=== PATIENT | female | born 1955 | race Caucasian/White ===

== ENCOUNTER 2017-08-23 08:12 | Emergency (ER) | payer OTHER ==
[~2017-08-23] VITALS: Ht 162.6 cm; Wt 113.4 kg
[~2017-08-23 08:12] MED LIST: ALBU90OI INH; AMLO10 PO; AMLO5 PO; ASPI325 PO; ASPI325EC; ASPI325EC PO; ASPI81EC PO; ATEN25; ATEN25 PO; ATEN50; ATEN50 PO; AZIT500 PO; CIPR500 PO; CLIN300 PO; CLON.1 PO; CLOP75 PO; CYCL10 PO; DOCU100 PO; DULO60; ESTMEDA PO; ESTPRO5 PO; FLUSAL5005 IH; FURO40 PO; GLIP5 PO; HYDACE10B PO; HYDACE5 PO; HYDACE5325 PO; ISOMON60ER PO; KETO10 PO; LACT10SY PO; LIDO5TP TOP; LISHYD2025 PO; LISI20; MAGCIT300 PO; MECL25 PO; METCAR500 PO; METO100 PO; METO25ER PO; METO50 PO; METO50ER PO; METPRE4DP PO; NAPR500 PO; NITR.4SL SL; OMEP20ER PO; OMEP40CA12 PO; OXYACE5T PO; OXYC10TA19 PO; PRAHYD1AE TOP; PRAV20 PO; PRED20 PO; PREMPRO PO; PROACE100 PO; PROM25 PO; RANI150 PO; ROSU10TA PO; RXHYDMOR2 PO; RXOXYACE PO; SITA100T2 PO; SITA25T2 PO; SUCR1 PO; SULTRIDS PO; TRAM50 PO; TRAZ50 PO; WALKER; [UNRECOGNIZED DRUG - OTHER]
== END 2017-08-23 09:45 | disposition home or self-care (01) ==
LOC: ER 08:12
DX: F32.9 Major depressive disorder, single episode, unspecified (principal); F43.9 Reaction to severe stress, unspecified; I10 Essential (primary) hypertension; E11.9 Type 2 diabetes mellitus without complications; F17.210 Nicotine dependence, cigarettes, uncomplicated; Z88.0 Allergy status to penicillin; Z88.2 Allergy status to sulfonamides; Z88.5 Allergy status to narcotic agent; Z88.8 Allergy status to other drugs, medicaments and biological substances; Z79.899 Other long term (current) drug therapy; Z79.82 Long term (current) use of aspirin; Z79.84 Long term (current) use of oral hypoglycemic drugs; Z86.73 Personal history of transient ischemic attack (TIA), and cerebral infarction without residual deficits
CPT/HCPCS: 99283

== ENCOUNTER 2017-12-10 08:49 | Emergency (ER) | payer OTHER ==
[~2017-12-10] VITALS: Ht 162.6 cm; Wt 108.9 kg
[2017-12-10 09:23] LABS: BASOPHILS ABSOLUTE AUTO 0.02 K/mm3 (0.00-0.23); BASOPHILS PERCENT AUTO 1 % (0-2); EOSINOPHILS PERCENT AUTO 3 % (0-6); Hematocrit 44.5 % (33.0-51.0); Hemoglobin 15.5 g/dL (11.5-16.0); IMMATURE GRAN ABSOLUTE AUTO 0.01 K/mm3 (0.00-0.10); IMMATURE GRAN PERCENT AUTO 0 % (0-1); LYMPHOCYTES ABSOLUTE AUTO 1.35 K/mm3 (0.84-5.20); LYMPHOCYTES PERCENT AUTO 37 % (21-46); MONOCYTES ABSOLUTE AUTO 0.33 K/mm3 (0.16-1.47); MONOCYTES PERCENT AUTO 9 % (4-13); Mean Corpuscular HGB 30.9 pg (26.0-34.0); Mean Corpuscular HGB Conc 34.8 g/dL (31.5-36.5); Mean Corpuscular Volume 89 fL (80-100); Mean Platelet Volume 9.1 fL (9.1-12.4); NEUTROPHILS ABSOLUTE AUTO 1.86 K/mm3 (1.96-9.15); NEUTROPHILS PERCENT AUTO 51 % (41-73); Platelet Count 212 K/mm3 (150-400); RDW Coefficient Variation 12.4 % (11.7-14.2); RDW Standard Deviation 40.4 fL (35.1-46.3); Red Blood Cell Count 5.01 M/mm3 (3.80-5.20); White Blood Cell Count 3.67 K/mm3 (4.00-11.30)
[2017-12-10 09:40] LABS: Alanine Aminotransfer (ALT/SGP 45 U/L (12-78); Albumin/Globulin Ratio 0.8 (0.8-1.8); Alk Phos 142 U/L (50-136); Anion Gap 9 mmol/L (6-16); Aspartate Aminotrans (AST/SGOT 29 U/L (12-37); Bilirubin, Total 0.5 mg/dL (0.1-1.0); Blood Urea Nitrogen 10 mg/dL (8-24); Bun/Creatinine Ratio 17.9 (12.0-20.0); CO2, Blood 28 mmol/L (21-32); Calcium, Blood 8.2 mg/dL (8.5-10.1); Chloride, Blood 102 mmol/L (98-108); Creatinine, Blood 0.56 mg/dL (0.40-1.00); Globulin, Blood 3.7 g/dL (2.2-4.0); Glomerular Filtration Rate >60 (60-); Glucose, Blood 291 mg/dL (70-99); Potassium, Blood 3.7 mmol/L (3.5-5.5); Sodium, Blood 139 mmol/L (136-145); Total Protein, Blood 6.7 g/dL (6.4-8.2)
[2017-12-10 09:56] LABS: Source, Urine Clean Catch
[2017-12-10 10:01] LABS: Bilirubin, Urine Neg (Neg); Blood, Urine Neg (Neg); Glucose Qualitative, Urine 4+ (Neg); Ketones, Urine Neg (Neg); Leukocyte Esterase, Urine Neg (Neg); Nitrite, Urine Neg (Neg); Protein, Urine Neg (Neg); Specific Gravity, Urine 1.015 (1.003-1.022); Urobilinogen, Urine NORM (Normal)
[2017-12-10] MEDS ORDERED: DULO60 PO (10:05)
[2017-12-10] MEDS ORDERED: BASAGLAR K100 UNIT/1 SC (10:07)
[2017-12-10] MEDS ORDERED: LOSARTAN-HCTZ1 EACH PO (10:08)
[2017-12-10] MEDS ORDERED: PRAV20 PO (10:09)
[2017-12-10 10:12] LABS: Appearance, Urine Clear (Clear); Color, Urine Yellow (P-Yellow)
== END 2017-12-10 12:35 | disposition home or self-care (01) ==
LOC: ER 08:49
PROVIDERS: Physician Assistant
DX: R10.31 Right lower quadrant pain (principal); M16.0 Bilateral primary osteoarthritis of hip; E11.9 Type 2 diabetes mellitus without complications; I11.0 Hypertensive heart disease with heart failure; I50.9 Heart failure, unspecified; J44.9 Chronic obstructive pulmonary disease, unspecified; F17.210 Nicotine dependence, cigarettes, uncomplicated; Z88.0 Allergy status to penicillin; Z88.2 Allergy status to sulfonamides; Z88.5 Allergy status to narcotic agent; Z88.8 Allergy status to other drugs, medicaments and biological substances; Z79.899 Other long term (current) drug therapy; Z79.82 Long term (current) use of aspirin; Z79.84 Long term (current) use of oral hypoglycemic drugs; Z86.73 Personal history of transient ischemic attack (TIA), and cerebral infarction without residual deficits
CPT/HCPCS: 71046; 74176; 80053; 81003; 83690; 83880; 85025; 93005; 93010; 96361; 96374; 99285-25; J2405; J7030

== ENCOUNTER 2019-02-22 09:40 | Emergency (ER) | payer OTHER ==
[~2019-02-22] VITALS: Ht 162.6 cm; Wt 95.2 kg
[~2019-02-22 09:40] MED LIST changes: +BASAGLAR K100 UNIT/1 SC; +DULO60 PO; +LOSARTAN-HCTZ1 EACH PO
[2019-02-22 10:21] LABS: BASOPHILS ABSOLUTE AUTO 0.02 K/mm3 (0.00-0.23); BASOPHILS PERCENT AUTO 0 % (0-2); EOSINOPHILS PERCENT AUTO 2 % (0-6); Hematocrit 48.9 % (33.0-51.0); Hemoglobin 17.1 g/dL (11.5-16.0); IMMATURE GRAN ABSOLUTE AUTO 0.02 K/mm3 (0.00-0.10); IMMATURE GRAN PERCENT AUTO 0 % (0-1); LYMPHOCYTES ABSOLUTE AUTO 1.76 K/mm3 (0.84-5.20); LYMPHOCYTES PERCENT AUTO 35 % (21-46); MONOCYTES ABSOLUTE AUTO 0.54 K/mm3 (0.16-1.47); MONOCYTES PERCENT AUTO 11 % (4-13); Mean Corpuscular HGB 31.7 pg (26.0-34.0); Mean Corpuscular Volume 91 fL (80-100); Mean Platelet Volume 9.7 fL (9.1-12.4); NEUTROPHILS ABSOLUTE AUTO 2.55 K/mm3 (1.96-9.15); NEUTROPHILS PERCENT AUTO 51 % (41-73); Platelet Count 225 K/mm3 (150-400); RDW Coefficient Variation 12.7 % (11.7-14.2); RDW Standard Deviation 41.3 fL (35.1-46.3); White Blood Cell Count 4.99 K/mm3 (4.00-11.30)
[2019-02-22 10:30] LABS: Alanine Aminotransfer (ALT/SGP 55 U/L (12-78); Albumin, Blood 3.5 g/dL (3.4-5.0); Alk Phos 132 U/L (50-136); Anion Gap 7 mmol/L (6-16); Aspartate Aminotrans (AST/SGOT 31 U/L (12-37); Bilirubin, Total 0.5 mg/dL (0.1-1.0); Blood Urea Nitrogen 10 mg/dL (8-24); Bun/Creatinine Ratio 18.1 (12.0-20.0); CO2, Blood 30 mmol/L (21-32); Calcium, Blood 8.7 mg/dL (8.5-10.1); Chloride, Blood 100 mmol/L (98-108); Creatinine, Blood 0.55 mg/dL (0.40-1.00); Globulin, Blood 3.6 g/dL (2.2-4.0); Glomerular Filtration Rate >60 (60-); Glucose, Blood 352 mg/dL (70-99); Potassium, Blood 3.7 mmol/L (3.5-5.5); Sodium, Blood 137 mmol/L (136-145); Total Protein, Blood 7.1 g/dL (6.4-8.2); Troponin I <0.015 ng/mL (0.000-0.040)
[2019-02-22] MEDS ORDERED: Ultram50 MG PO (12:05)
== END 2019-02-22 12:37 | disposition home or self-care (01) ==
LOC: ER 09:40
PROVIDERS: Emergency Medicine
DX: M25.551 Pain in right hip (principal); Z88.0 Allergy status to penicillin; Z88.2 Allergy status to sulfonamides; Z88.5 Allergy status to narcotic agent; Z79.899 Other long term (current) drug therapy; Z79.82 Long term (current) use of aspirin; Z79.4 Long term (current) use of insulin; I11.0 Hypertensive heart disease with heart failure; I50.9 Heart failure, unspecified; Z86.73 Personal history of transient ischemic attack (TIA), and cerebral infarction without residual deficits; F17.210 Nicotine dependence, cigarettes, uncomplicated; E11.9 Type 2 diabetes mellitus without complications
CPT/HCPCS: 36415; 71046; 72100; 73502; 80053; 84484; 85025; 93005; 93010; 96374; 99284-25; J3010

== ENCOUNTER 2019-05-09 00:42 | Observation (INO) | payer MEDICARE, OTHER ==
[~2019-05-09] VITALS: Ht 162.6 cm; Wt 97.3 kg
[~2019-05-09 00:42] MED LIST changes: +Ultram50 MG PO
[2019-05-09 01:24] LABS: BASOPHILS ABSOLUTE AUTO 0.04 K/mm3 (0.00-0.23); BASOPHILS PERCENT AUTO 1 % (0-2); EOSINOPHILS PERCENT AUTO 2 % (0-6); Hematocrit 50.9 % (33.0-51.0); IMMATURE GRAN ABSOLUTE AUTO 0.02 K/mm3 (0.00-0.10); IMMATURE GRAN PERCENT AUTO 0 % (0-1); LYMPHOCYTES ABSOLUTE AUTO 1.82 K/mm3 (0.84-5.20); LYMPHOCYTES PERCENT AUTO 36 % (21-46); MONOCYTES ABSOLUTE AUTO 0.53 K/mm3 (0.16-1.47); MONOCYTES PERCENT AUTO 11 % (4-13); Mean Corpuscular HGB 31.6 pg (26.0-34.0); Mean Corpuscular HGB Conc 35.4 g/dL (31.5-36.5); Mean Corpuscular Volume 89 fL (80-100); Mean Platelet Volume 10.2 fL (9.1-12.4); NEUTROPHILS ABSOLUTE AUTO 2.55 K/mm3 (1.96-9.15); NEUTROPHILS PERCENT AUTO 50 % (41-73); Platelet Count 238 K/mm3 (150-400); RDW Coefficient Variation 12.2 % (11.7-14.2); White Blood Cell Count 5.06 K/mm3 (4.00-11.30)
[2019-05-09 01:44] LABS: Acetaminophen, Random <2.0 ug/mL (10.0-30.0); Alanine Aminotransfer (ALT/SGP 62 U/L (12-78); Albumin, Blood 3.6 g/dL (3.4-5.0); Alk Phos 160 U/L (50-136); Anion Gap 11 mmol/L (6-16); Aspartate Aminotrans (AST/SGOT 35 U/L (12-37); Bilirubin, Total 0.5 mg/dL (0.1-1.0); Blood Urea Nitrogen 11 mg/dL (8-24); Bun/Creatinine Ratio 20.6 (12.0-20.0); CO2, Blood 24 mmol/L (21-32); Chloride, Blood 101 mmol/L (98-108); Creatinine, Blood 0.54 mg/dL (0.40-1.00); Ethanol (Alcohol), Blood, Med <3 mg/dL; Globulin, Blood 3.7 g/dL (2.2-4.0); Glomerular Filtration Rate >60 (60-); Glucose, Blood 474 mg/dL (70-99); Potassium, Blood 3.8 mmol/L (3.5-5.5); Salicylate 2.2 mg/dL (2.8-20.0); Sodium, Blood 136 mmol/L (136-145); Total Protein, Blood 7.3 g/dL (6.4-8.2)
[2019-05-09 03:26] LABS: Source, Urine Clean Catch
[2019-05-09 03:29] LABS: Bilirubin, Urine Neg (Neg); Blood, Urine Neg (Neg); Glucose Qualitative, Urine 4+ (Neg); Ketones, Urine 1+ (Neg); Leukocyte Esterase, Urine Neg (Neg); Nitrite, Urine Neg (Neg); Protein, Urine Neg (Neg); Specific Gravity, Urine 1.015 (1.003-1.022); Urobilinogen, Urine NORM (Normal); pH, Urine 6.5 (5.0-8.0)
[2019-05-09 03:31] LABS: Appearance, Urine Clear (Clear); Color, Urine Yellow (P-Yellow)
[2019-05-09 03:39] LABS: U Amphetamine Screen Not Detected; U Barbituate Screen Not Detected; U Benzodiazapine Screen Not Detected; U Buprenorphine Screen Not Detected; U Cannabinoids Screen Not Detected; U Cocaine Screen Not Detected; U Methadone Screen Not Detected; U Methamphetamine Screen Not Detected; U Opiates Screen Not Detected; U Oxycodone Screen Not Detected; U Phencyclidine Screen Not Detected; U Propoxyphene Screen Not Detected
--- NOTE | 2019-05-09 17:26 | NUR ---
SHIFT SUMMARY 1055 RECEIVED PT TO RM 348 VIA W/C FROM ER. PER REPORT, PT IS W/C BOUND BUT ABLE TO STAND AND PIVOT FROM CHAIR TO BED. PT ORIGINALLY ON SI PRECAUTIONS WHEN SENT TO ER. DR MORRIS IN TO SEE PT AND LATER DR PAK. SI PRECAUTIONS D/C'D. PER REPORT, PT AND HAD AN ARGUMENT LEADING TO PT BEING BROUGHT IN TO ER. PT REPORTED THAT SHE IS "TIRED OF THE PAIN". PT'S DAUGHTER CALLED TO [facility] ON HER MOM AND REPORTED THAT PT WAS SUPPOSE TO GO TO THE PAIN CLINIC, BUT REFUSED TO GO. DAUGHTER REPORTED THAT PT DOESN'T FEEL SHE IS ABLE TO TOLERATE THE TRANSPORT OFTEN THEY REQUIRE. PT'S CBG ELEVATED WHEN ADMITTED TO D/T NOT RECEIVING INSULIN COVERAGE WHILE IN ER. DR MORRIS NOTIFIED OF CBG RESULT AND INSULIN GIVEN PER EMAR. PT MEDICATED FOR C/O PAIN PER EMAR AND HAS RESTED QUIETLY THE REMAINDER OF THE DAY. PT HAS BEEN PLEASANT AND CO-OP. CALL LT IN REACH.
--- NOTE | 2019-05-09 21:32 | NUR ---
BLOOD GLUCOSE: BLOOD GLUCOSE WAS CHECKED PER PATIENT REQUEST, RESULT IS 372. LIGIA BRISCOE NP WAS NOTIFIED AND NO NEW ORDERS OBTAINED. CONTINUE TO MONITOR BLOOD GLUCOSE BEFORE MEALS ORDERED.
[2019-05-10 05:03] LABS: BASOPHILS ABSOLUTE AUTO 0.04 K/mm3 (0.00-0.23); BASOPHILS PERCENT AUTO 1 % (0-2); EOSINOPHILS ABSOLUTE AUTO 0.16 K/mm3 (0.00-0.68); EOSINOPHILS PERCENT AUTO 3 % (0-6); Hematocrit 47.1 % (33.0-51.0); IMMATURE GRAN ABSOLUTE AUTO 0.02 K/mm3 (0.00-0.10); IMMATURE GRAN PERCENT AUTO 0 % (0-1); LYMPHOCYTES ABSOLUTE AUTO 2.13 K/mm3 (0.84-5.20); LYMPHOCYTES PERCENT AUTO 44 % (21-46); MONOCYTES ABSOLUTE AUTO 0.69 K/mm3 (0.16-1.47); MONOCYTES PERCENT AUTO 14 % (4-13); Mean Corpuscular HGB 31.1 pg (26.0-34.0); Mean Platelet Volume 10.2 fL (9.1-12.4); NEUTROPHILS ABSOLUTE AUTO 1.84 K/mm3 (1.96-9.15); NEUTROPHILS PERCENT AUTO 38 % (41-73); Platelet Count 216 K/mm3 (150-400); RDW Coefficient Variation 12.5 % (11.7-14.2); RDW Standard Deviation 41.8 fL (35.1-46.3); Red Blood Cell Count 5.15 M/mm3 (3.80-5.20); White Blood Cell Count 4.88 K/mm3 (4.00-11.30)
[2019-05-10 05:08] LABS: Mean Corpuscular Volume 92 fL (80-100)
[2019-05-10 05:27] LABS: Bilirubin, Total 0.7 mg/dL (0.1-1.0); Bun/Creatinine Ratio 13.7 (12.0-20.0); Calcium, Blood 8.7 mg/dL (8.5-10.1); Creatinine, Blood 1.53 mg/dL (0.40-1.00); Globulin, Blood 3.1 g/dL (2.2-4.0); Potassium, Blood 4.5 mmol/L (3.5-5.5); Total Protein, Blood 6.1 g/dL (6.4-8.2)
--- NOTE | 2019-05-10 06:30 | NUR ---
SHIFT SUMMARY: PATIENT IS A&OX4, VS ARE STABLE, UP TO THE BSC WITH ASSIST OF ONE TO VOID. CONTINUES TO REPORT PAIN IN RIGHT HIP 7-12/10. SCHEDULED TORADOL AND NORCO WERE NOT COVERING PAIN, LIGIA BRISCOE NP WAS NOTIFIED AND AN ORDER TP CHANGE NORCO TO 1 TAB Q 4 HOUR SCHEDULED WAS OBTAINED.
--- NOTE | 2019-05-10 16:41 | NUR ---
PT IS A/OX3, PLEASANT AND COOPERATIVE, THE PT IS A STAND PIVOT TO THE CHAIR, THE PT HAS BEEN UP INTO THE CHAIR FOR MEALS SO FAR TODAY, THE PT APPEARS TO BE BREATHING EASILY ON RA, THE WAS MEDICATED FOR CHRONIC BACK AND HIP PAIN SCHEDULED, THE PTS BP HAS BEEN UNDER 100 MM HG T/THE DAY IN THE 90'S, DR. MORRIS IS AWARE BP MEDS WERE HELD TODAY SO FAR, WILL CONTINUE TO MONITOR AND ASSESS FOR CHANGES, THE PT WAS GIVEN ATIVAN X1 IN PREP FOR MRI, CALL LIGHT IN REACH
--- NOTE | 2019-05-11 06:35 | NUR ---
NO ACUTE CHANGES THIS SHIFT.
--- NOTE | 2019-05-11 16:40 | NUR ---
pt transfered to room 342 REPORT GIVEN TO WINDY LINARES, PT WAS TRANSFERED TO ROOM VIA WHEELCHAIR, TODAY THE PT HAS BEEN A/OX3. PLEASANT AND COOPERATIVE, THE PT IS PU WITH SBA TO THE CHAIR AND THE BSC, THE PT WAS MEDICATED FOR BACK AND RIGHT HIP PAIN T/O THE DAY, PT WAS UP INTO THE CHAIR FOR MEALS. CALL LIGHT IN REACH, WILL CONTINUE TO MONITOR AND ASSESS FOR CHANGES
--- NOTE | 2019-05-11 22:30 | NUR ---
AMA DISCHARGE AT THE START OF SHIFT, PT WAS VERY AGITATED. SHE STATED THAT SHE "WANTED TO GO BACK TO MY OLD ROOM", THAT THE HOSPITAL WAS TOO NOISY, THAT THE STAFF WAS KEEPING SECRETS AND THAT "SOMEONE WAS TALKING ON THE PHONE ABOUT ME IN THE HALLWAY," AND THAT SHE HAD NOT BEEN TREATED FOR PER PAIN. PT WAS AGAIN EDUCATED ABOUT CHANGE OF SHIFT, AND WAS MEDICATED FOR HER PAIN WITH PRN 1 MG IV DILAUDID AT 193. PT DID STATE PAIN WAS SOMEWHAT RELIEVED, AND THIS RN HELPED HER TO USE THE PHONE TO CALL HER CAREGIVER. AND AFTER PT RECEIVED HER HS MEDICATIONS AT APPROXIMATELY 2024, SHE APPEARED CALM, DENIED ANY NEEDS AND STATED THAT SHE WAS GOING TO TRY AND SLEEP. APPROXIMATELY 20 MINUTES LATER, THIS RN WAS CALLED BY THE PT'S CAREGIVER WELL THE MAINTENANCE SCHEDULER. THE PT'S CAREGIVER STATED THAT THE PT HAD CALLED HER REPEATEDLY, SAYING THAT THE "STAFF WAS KEEPING SECRETS ABOUT HER", THAT PEOPLE WERE TALKING ABOUT HER IN THE HALLWAY, AND THAT IF SHE WAS NOT GOING TO BE TREATED THAT SHE WANTED TO GO HOME. THE MAINTENANCE SCHEDULER REPORTED THAT THE PT HAD TRIED TO CALL 911 WANTING A TRAINING MANAGER TO TAKE HER HOME. THIS RN WENT IN TO SPEAK WITH THE PT, WHO INSISTED THAT SHE WAS GOING TO LEAVE, AND THAT THE HOSPITAL COULD NOT HOLD HER AGAINST HER WILL SINCE HER SI HOSPITAL HOLD WAS DROPPED. PT WAS EDUCATED ABOUT HER CONDITION AND COUNSELED AGAINST LEAVING AMA, BUT THE PT WAS INSISTENT. THE CHARGE NURSE, NURSING LOOPER OPERATOR AND HOSPITALIST KEENAN LUTHER WERE ALL INFORMED. PT SIGNED THE [place] PAPERWORK. IV WAS DC/D. PT'S CAREGIVER CAME TO PICK THE PT UP FROM THE HOSPITAL. PT LEFT AMA AT 2216.
== END 2019-05-11 22:17 | disposition left against medical advice (07) ==
LOC: ER 00:42 → MEDS 00:43 → EOR 00:43 → MEDS 10:37
PROVIDERS: Internal Medicine; ADMIT Emergency Medicine
DX: F32.9 Major depressive disorder, single episode, unspecified (principal); E11.59 Type 2 diabetes mellitus with other circulatory complications; I11.0 Hypertensive heart disease with heart failure; I50.32 Chronic diastolic (congestive) heart failure; I25.10 Atherosclerotic heart disease of native coronary artery without angina pectoris; J44.9 Chronic obstructive pulmonary disease, unspecified; F17.210 Nicotine dependence, cigarettes, uncomplicated; M19.90 Unspecified osteoarthritis, unspecified site; G89.29 Other chronic pain; N17.9 Acute kidney failure, unspecified; M16.0 Bilateral primary osteoarthritis of hip; M47.26 Other spondylosis with radiculopathy, lumbar region; E66.01 Morbid (severe) obesity due to excess calories; Z68.41 Body mass index [BMI] 40.0-44.9, adult; Z88.0 Allergy status to penicillin; Z88.2 Allergy status to sulfonamides; Z88.5 Allergy status to narcotic agent; Z88.8 Allergy status to other drugs, medicaments and biological substances; Z79.82 Long term (current) use of aspirin; Z79.51 Long term (current) use of inhaled steroids; Z79.4 Long term (current) use of insulin; Z79.899 Other long term (current) drug therapy; Z95.5 Presence of coronary angioplasty implant and graft; Z86.73 Personal history of transient ischemic attack (TIA), and cerebral infarction without residual deficits
CPT/HCPCS: 36415; 72100; 72148; 73522; 80053; 81003; 81025; 82947; 85025; 94640; 94760; 96372; 96374; 96375; 96376; 99285; A9270-GY; G0378; G0480; J1170; J1650; J1885; J2060

== ENCOUNTER 2020-04-22 21:52 | Observation (INO) | payer MEDICARE, OTHER ==
[~2020-04-22] VITALS: Ht 162.6 cm; Wt 106.6 kg
[2020-04-22] MEDS ORDERED: LYRICA150 M1 PO (22:11)
[2020-04-22 22:22] LABS: BASOPHILS ABSOLUTE AUTO 0.03 K/mm3 (0.00-0.23); BASOPHILS PERCENT AUTO 1 % (0-2); EOSINOPHILS ABSOLUTE AUTO 0.11 K/mm3 (0.00-0.68); EOSINOPHILS PERCENT AUTO 2 % (0-6); Hematocrit 50.7 % (33.0-51.0); Hemoglobin 17.1 g/dL (11.5-16.0); IMMATURE GRAN ABSOLUTE AUTO 0.02 K/mm3 (0.00-0.10); IMMATURE GRAN PERCENT AUTO 0 % (0-1); LYMPHOCYTES PERCENT AUTO 28 % (21-46); MONOCYTES ABSOLUTE AUTO 0.52 K/mm3 (0.16-1.47); MONOCYTES PERCENT AUTO 8 % (4-13); Mean Corpuscular HGB 29.9 pg (26.0-34.0); Mean Corpuscular HGB Conc 33.7 g/dL (31.5-36.5); Mean Corpuscular Volume 89 fL (80-100); Mean Platelet Volume 9.5 fL (9.1-12.4); NEUTROPHILS ABSOLUTE AUTO 3.92 K/mm3 (1.96-9.15); NEUTROPHILS PERCENT AUTO 61 % (41-73); Platelet Count 302 K/mm3 (150-400); RDW Coefficient Variation 12.8 % (11.7-14.2); RDW Standard Deviation 41.7 fL (35.1-46.3); Red Blood Cell Count 5.71 M/mm3 (3.80-5.20)
[2020-04-22 22:43] LABS: Ethanol (Alcohol), Blood, Med <3 mg/dL; Salicylate <1.7 mg/dL (2.8-20.0); Thyroxine (T4) 10.5 ug/dL (4.8-13.9)
[2020-04-22 22:44] LABS: Alanine Aminotransfer (ALT/SGP 25 U/L (12-78); Albumin/Globulin Ratio 0.6 (0.8-1.8); Alk Phos 123 U/L (50-136); Anion Gap 7 mmol/L (6-16); Aspartate Aminotrans (AST/SGOT 12 U/L (12-37); Bilirubin, Total 0.5 mg/dL (0.1-1.0); Blood Urea Nitrogen 13 mg/dL (8-24); Bun/Creatinine Ratio 24.7 (12.0-20.0); CO2, Blood 29 mmol/L (21-32); Calcium, Blood 8.8 mg/dL (8.5-10.1); Chloride, Blood 100 mmol/L (98-108); Creatinine, Blood 0.53 mg/dL (0.40-1.00); Globulin, Blood 4.7 g/dL (2.2-4.0); Glomerular Filtration Rate >60 (60-); Glucose, Blood 459 mg/dL (70-99); Potassium, Blood 3.3 mmol/L (3.5-5.5); Sodium, Blood 136 mmol/L (136-145); Total Protein, Blood 7.7 g/dL (6.4-8.2)
[2020-04-22 22:58] LABS: Acetaminophen, Random <2.0 ug/mL (10.0-30.0)
[2020-04-23 01:20] LABS: Source, Urine Clean Catch
[2020-04-23 01:26] LABS: Appearance, Urine Cloudy (Clear); Bilirubin, Urine Neg (Neg); Blood, Urine Neg (Neg); Color, Urine Yellow (P-Yellow); Glucose Qualitative, Urine 4+ (Neg); Ketones, Urine Neg (Neg); Leukocyte Esterase, Urine 1+ (Neg); Nitrite, Urine Neg (Neg); Protein, Urine Neg (Neg); Urobilinogen, Urine NORM (Normal)
[2020-04-23 01:43] LABS: Bacteria Many /hpf; Red Blood Cells, Urine 0-2 /hpf (0-2); Squamous Epithelial Cells Many /hpf (Few)
[2020-04-23 01:50] LABS: U Amphetamine Screen DETECTED; U Barbituate Screen Not Detected; U Benzodiazapine Screen Not Detected; U Buprenorphine Screen Not Detected; U Cannabinoids Screen Not Detected; U Cocaine Screen Not Detected; U Methadone Screen Not Detected; U Methamphetamine Screen DETECTED; U Opiates Screen Not Detected; U Oxycodone Screen Not Detected; U Phencyclidine Screen Not Detected; U Propoxyphene Screen Not Detected
[2020-04-23 11:51] LABS: Influenza A, PCR Negative (NEGATIVE); Influenza B, PCR Negative (NEGATIVE); Resp Syncytial Virus, PCR Negative (NEGATIVE); SARS-Cov-2 (COVID-19) PCR, MMC Negative (NEGATIVE)
== END 2020-04-23 17:13 | disposition home or self-care (01) ==
LOC: ER 21:52 → EOR 04-23 00:19
PROVIDERS: Emergency Medicine; ADMIT Emergency Medicine
DX: F33.9 Major depressive disorder, recurrent, unspecified (principal); T42.6X2A Poisoning by other antiepileptic and sedative-hypnotic drugs, intentional self-harm, initial encounter; F15.10 Other stimulant abuse, uncomplicated; F17.210 Nicotine dependence, cigarettes, uncomplicated; I11.0 Hypertensive heart disease with heart failure; I50.9 Heart failure, unspecified; J44.9 Chronic obstructive pulmonary disease, unspecified; I25.10 Atherosclerotic heart disease of native coronary artery without angina pectoris; E11.40 Type 2 diabetes mellitus with diabetic neuropathy, unspecified; E66.9 Obesity, unspecified; Z67.41 Type O blood, Rh negative; Z95.5 Presence of coronary angioplasty implant and graft; Z86.73 Personal history of transient ischemic attack (TIA), and cerebral infarction without residual deficits; Z79.82 Long term (current) use of aspirin; Z79.51 Long term (current) use of inhaled steroids; Z79.4 Long term (current) use of insulin; Z79.899 Other long term (current) drug therapy; Z20.828 Contact with and (suspected) exposure to other viral communicable diseases; Z88.0 Allergy status to penicillin; Z88.2 Allergy status to sulfonamides; Z88.5 Allergy status to narcotic agent; Z88.8 Allergy status to other drugs, medicaments and biological substances; Z99.3 Dependence on wheelchair
CPT/HCPCS: 0241U; 51701; 80053; 81001; 82947; 84436; 84443; 85025; 87086; 93005; 93010; 96374; 99285-25; G0378; G0480; J1815; J1885; J7030; Q3014

== ENCOUNTER 2020-12-17 12:08 | Observation (INO) | payer MEDICARE, OTHER ==
[~2020-12-17] VITALS: Ht 162.6 cm; Wt 108.9 kg
[~2020-12-17 12:08] MED LIST changes: +Aspir 8181 MG PO; +LYRICA150 M1 PO
[2020-12-17] MEDS ORDERED: CYMBALTA30 M2 PO (12:47)
[2020-12-17] MEDS ORDERED: REMERON15 M4 PO (12:47)
[2020-12-17] MEDS ORDERED: HYDROCHLOROTH12.5 MG PO (12:47)
[2020-12-17] MEDS ORDERED: DULOXETINE HCL60 M1 PO (12:47)
[2020-12-17] MEDS ORDERED: FAMO20 PO (12:48)
[2020-12-17] MEDS ORDERED: LOSA50 PO (12:48)
[2020-12-17] MEDS ORDERED: PREGABALIN100 MG PO (12:48)
[2020-12-17] MEDS ORDERED: METOPROLOL TAR100 M4 PO (12:49)
[2020-12-17] MEDS ORDERED: NITR.4SL SL (12:50)
[2020-12-17 12:51] LABS: BASOPHILS ABSOLUTE AUTO 0.02 K/mm3 (0.00-0.23); BASOPHILS PERCENT AUTO 1 % (0-2); EOSINOPHILS ABSOLUTE AUTO 0.04 K/mm3 (0.00-0.68); EOSINOPHILS PERCENT AUTO 1 % (0-6); Hematocrit 44.1 % (33.0-51.0); Hemoglobin 15.4 g/dL (11.5-16.0); IMMATURE GRAN ABSOLUTE AUTO 0.02 K/mm3 (0.00-0.10); IMMATURE GRAN PERCENT AUTO 1 % (0-1); LYMPHOCYTES ABSOLUTE AUTO 1.25 K/mm3 (0.84-5.20); LYMPHOCYTES PERCENT AUTO 32 % (21-46); MONOCYTES ABSOLUTE AUTO 0.34 K/mm3 (0.16-1.47); MONOCYTES PERCENT AUTO 9 % (4-13); Mean Corpuscular HGB 30.9 pg (26.0-34.0); Mean Corpuscular HGB Conc 34.9 g/dL (31.5-36.5); Mean Corpuscular Volume 88 fL (80-100); Mean Platelet Volume 9.8 fL (9.1-12.4); NEUTROPHILS PERCENT AUTO 57 % (41-73); Platelet Count 129 K/mm3 (150-400); RDW Coefficient Variation 12.9 % (11.7-14.2); RDW Standard Deviation 41.9 fL (35.1-46.3); Red Blood Cell Count 4.99 M/mm3 (3.80-5.20); White Blood Cell Count 3.87 K/mm3 (4.00-11.30)
[2020-12-17 13:07] LABS: Alanine Aminotransfer (ALT/SGP 38 U/L (12-78); Albumin, Blood 2.7 g/dL (3.4-5.0); Albumin/Globulin Ratio 0.7 (0.8-1.8); Alk Phos 84 U/L (50-136); Anion Gap 7 mmol/L (6-16); Aspartate Aminotrans (AST/SGOT 21 U/L (12-37); Bilirubin, Total 0.8 mg/dL (0.1-1.0); Blood Urea Nitrogen 7 mg/dL (8-24); Bun/Creatinine Ratio 13.9 (12.0-20.0); CO2, Blood 27 mmol/L (21-32); Calcium, Blood 7.8 mg/dL (8.5-10.1); Chloride, Blood 104 mmol/L (98-108); Globulin, Blood 3.7 g/dL (2.2-4.0); Glomerular Filtration Rate >60 (60-); Glucose, Blood 337 mg/dL (70-99); Potassium, Blood 3.3 mmol/L (3.5-5.5); Sodium, Blood 138 mmol/L (136-145); Total Protein, Blood 6.4 g/dL (6.4-8.2); Troponin I <0.015 ng/mL (0.000-0.040)
--- NOTE | 2020-12-17 22:40 | NUR ---
RECEIVED REPORT FROM VIJAY HERNANDEZ. PT DROWSY, BUT AROUSABLE TO VERBAL/TACTILE STIMULI. MEDS GIVEN AND CBG OBTAINED. PT/OT ASSISTING PT TO GET CLEANED UP. NO OTHER ACUTE NEEDS ASSESSED AT THIS TIME. CALL LIGHT, POSSESSIONS IN REACH, BED IN LOW AND LOCKED POSITION WITH ALARMS ON.
[2020-12-18 05:53] LABS: Anion Gap 9 mmol/L (6-16); Blood Urea Nitrogen 13 mg/dL (8-24); Bun/Creatinine Ratio 23.8 (12.0-20.0); CO2, Blood 24 mmol/L (21-32); Calcium, Blood 7.9 mg/dL (8.5-10.1); Chloride, Blood 104 mmol/L (98-108); Creatinine, Blood 0.55 mg/dL (0.40-1.00); Glomerular Filtration Rate >60 (60-); Glucose, Blood 344 mg/dL (70-99); Potassium, Blood 4.3 mmol/L (3.5-5.5); Sodium, Blood 137 mmol/L (136-145)
--- NOTE | 2020-12-18 07:38 | NUR ---
HIGH DENSITY FINISHING OPERATOR SUMMARY PT ASLEEP, IN NAD. NO ACUTE CHANGES TO REPORT OVERNIGHT, APPEARED TO SLEEP WELL. VS REVIEWED,WNL. O2 SATS STABLE ON RA. NO ACUTE NEEDS ASSESSED AT THIS TIME. CALL LIGHT, POSSESSIONS IN REACH, BED IN LOW AND LOCKED POSITION WITH ALARMS ON. REPORT GIVEN TO VIJAY RANGEL.
--- NOTE | 2020-12-18 17:14 | NUR ---
NO ACUTE CHANGES TO PT. SHE HAS BEEN ALERT AND ORIENTED ALL DAY. PT REMAINS ON ROOM AIR, NO COMPLAINTS OF SOB, NVD, OR PAIN. PT ABLE TO TRANSFER TO BSC ON HER OWN. CALLS APPROPRIATELY . VITALS WNL, CALL LIGHT WITHIN REACH, BED IN LOW POSITION. WILL CONTINUE TO MONITOR.
[2020-12-19 05:24] LABS: BASOPHILS PERCENT AUTO 0 % (0-2); EOSINOPHILS PERCENT AUTO 0 % (0-6); Hematocrit 42.3 % (33.0-51.0); Hemoglobin 14.9 g/dL (11.5-16.0); IMMATURE GRAN ABSOLUTE AUTO 0.02 K/mm3 (0.00-0.10); IMMATURE GRAN PERCENT AUTO 0 % (0-1); LYMPHOCYTES ABSOLUTE AUTO 1.23 K/mm3 (0.84-5.20); LYMPHOCYTES PERCENT AUTO 25 % (21-46); MONOCYTES PERCENT AUTO 6 % (4-13); Mean Corpuscular HGB 30.5 pg (26.0-34.0); Mean Corpuscular HGB Conc 35.2 g/dL (31.5-36.5); Mean Corpuscular Volume 87 fL (80-100); Mean Platelet Volume 9.9 fL (9.1-12.4); NEUTROPHILS ABSOLUTE AUTO 3.37 K/mm3 (1.96-9.15); NEUTROPHILS PERCENT AUTO 69 % (41-73); Platelet Count 196 K/mm3 (150-400); RDW Coefficient Variation 12.5 % (11.7-14.2); RDW Standard Deviation 39.6 fL (35.1-46.3); Red Blood Cell Count 4.88 M/mm3 (3.80-5.20); White Blood Cell Count 4.92 K/mm3 (4.00-11.30)
[2020-12-19 05:52] LABS: Alanine Aminotransfer (ALT/SGP 35 U/L (12-78); Albumin, Blood 2.6 g/dL (3.4-5.0); Albumin/Globulin Ratio 0.7 (0.8-1.8); Alk Phos 92 U/L (50-136); Anion Gap 4 mmol/L (6-16); Aspartate Aminotrans (AST/SGOT 16 U/L (12-37); Bilirubin, Total 0.5 mg/dL (0.1-1.0); Blood Urea Nitrogen 21 mg/dL (8-24); Bun/Creatinine Ratio 41.6 (12.0-20.0); CO2, Blood 29 mmol/L (21-32); Calcium, Blood 8.1 mg/dL (8.5-10.1); Chloride, Blood 102 mmol/L (98-108); Creatinine, Blood 0.51 mg/dL (0.40-1.00); Globulin, Blood 3.9 g/dL (2.2-4.0); Glomerular Filtration Rate >60 (60-); Glucose, Blood 319 mg/dL (70-99); Potassium, Blood 3.9 mmol/L (3.5-5.5); Sodium, Blood 135 mmol/L (136-145); Total Protein, Blood 6.5 g/dL (6.4-8.2)
[2020-12-19] MEDS ORDERED: PANT20 PO (09:38)
[2020-12-19] MEDS ORDERED: ONDA4ODT MM (09:40)
--- NOTE | 2020-12-19 12:00 | NUR ---
CALLED DR FOR HIGH CBG; INSTRUCTED TO GIVE THE SLIDING SCALE AND SCHEDULED DOSE.
--- NOTE | 2020-12-19 15:48 | NUR ---
PT DC WITH HOME HEALTH; PROVIDED WITH WHEELCHAIR; INSTRUCTED THAT CAREGIVER WILL INTERNATIONAL RECRUITER HER MEDS AND WAITING FOR HER TO GO HOME; TRANSPORTED VIA [facility] [employer] GIVEN DISCHARGE PAPERWORKS, AND EDUCATED ABOUT FOLLOW UP TO PCP WHEN SYMPTOMS GETS WORSE. IV DC'D. MEDICATED FOR PAIN THIS AM AND FELT BETTER
== END 2020-12-19 15:27 | disposition home health service (06) ==
LOC: ER 12:08 → MEDS 12:09 → EOR 12:09 → MEDS 19:34
PROVIDERS: Internal Medicine; Student in an Organized Health Care Education/Training Program; ADMIT Internal Medicine
DX: U07.1 COVID-19 (principal); J96.01 Acute respiratory failure with hypoxia; I11.0 Hypertensive heart disease with heart failure; J44.9 Chronic obstructive pulmonary disease, unspecified; F17.210 Nicotine dependence, cigarettes, uncomplicated; E11.59 Type 2 diabetes mellitus with other circulatory complications; R00.0 Tachycardia, unspecified; E86.0 Dehydration; I50.30 Unspecified diastolic (congestive) heart failure; I25.10 Atherosclerotic heart disease of native coronary artery without angina pectoris; M25.559 Pain in unspecified hip; M54.9 Dorsalgia, unspecified; G89.29 Other chronic pain; E87.6 Hypokalemia; E66.01 Morbid (severe) obesity due to excess calories; Z68.41 Body mass index [BMI] 40.0-44.9, adult; J41.0 Simple chronic bronchitis; Z99.3 Dependence on wheelchair; Z86.73 Personal history of transient ischemic attack (TIA), and cerebral infarction without residual deficits; Z95.818 Presence of other cardiac implants and grafts; Z88.0 Allergy status to penicillin; Z88.2 Allergy status to sulfonamides; Z88.5 Allergy status to narcotic agent; Z88.8 Allergy status to other drugs, medicaments and biological substances; Z79.4 Long term (current) use of insulin
CPT/HCPCS: 36415; 71045; 80048; 80053; 82947; 83735; 84484; 85025; 93005; 93010; 94640; 94760; 96365; 96366; 96372; 96375; 97110; 97161; 97166; 97530; 97535; 99285-25; A9270; C9113; G0378; J1100; J1650; J1885; J2765; J3475; J7030

== ENCOUNTER → 2021-01-10 | Outpatient (CLI) | payer MEDICARE, OTHER ==
[~2021-01-10] MED LIST changes: +CYMBALTA30 M2 PO; +DULOXETINE HCL60 M1 PO; +FAMO20 PO; +HYDROCHLOROTH12.5 MG PO; +LOSA50 PO; +METOPROLOL TAR100 M4 PO; +ONDA4ODT MM; +PANT20 PO; +PREGABALIN100 MG PO; +REMERON15 M4 PO
== END | disposition home or self-care (01) ==
LOC: LAB 12:05 → LAB SHORT 12:05
DX: U07.1 COVID-19 (principal); E11.59 Type 2 diabetes mellitus with other circulatory complications
CPT/HCPCS: 87070; 87075; 87077; 87186; 87205

== ENCOUNTER 2021-02-06 10:53 | Emergency (ER) | payer OTHER, MEDICARE ==
[~2021-02-06] VITALS: Ht 162.6 cm; Wt 106.6 kg
[2021-02-06 11:34] LABS: BASOPHILS ABSOLUTE AUTO 0.02 K/mm3 (0.00-0.23); BASOPHILS PERCENT AUTO 1 % (0-2); EOSINOPHILS ABSOLUTE AUTO 0.18 K/mm3 (0.00-0.68); EOSINOPHILS PERCENT AUTO 5 % (0-6); Hematocrit 39.8 % (33.0-51.0); Hemoglobin 13.9 g/dL (11.5-16.0); IMMATURE GRAN ABSOLUTE AUTO 0.02 K/mm3 (0.00-0.10); IMMATURE GRAN PERCENT AUTO 1 % (0-1); LYMPHOCYTES ABSOLUTE AUTO 1.24 K/mm3 (0.84-5.20); LYMPHOCYTES PERCENT AUTO 32 % (21-46); MONOCYTES ABSOLUTE AUTO 0.48 K/mm3 (0.16-1.47); MONOCYTES PERCENT AUTO 12 % (4-13); Mean Corpuscular HGB Conc 34.9 g/dL (31.5-36.5); Mean Corpuscular Volume 89 fL (80-100); Mean Platelet Volume 10.2 fL (9.1-12.4); NEUTROPHILS ABSOLUTE AUTO 1.92 K/mm3 (1.96-9.15); NEUTROPHILS PERCENT AUTO 50 % (41-73); Platelet Count 241 K/mm3 (150-400); RDW Standard Deviation 42.5 fL (35.1-46.3); Red Blood Cell Count 4.48 M/mm3 (3.80-5.20); White Blood Cell Count 3.86 K/mm3 (4.00-11.30)
[2021-02-06 11:50] LABS: Alanine Aminotransfer (ALT/SGP 20 U/L (12-78); Albumin, Blood 2.3 g/dL (3.4-5.0); Albumin/Globulin Ratio 0.6 (0.8-1.8); Alk Phos 91 U/L (50-136); Anion Gap 5 mmol/L (6-16); Aspartate Aminotrans (AST/SGOT 17 U/L (12-37); Bilirubin, Total 0.5 mg/dL (0.1-1.0); Blood Urea Nitrogen 5 mg/dL (8-24); Bun/Creatinine Ratio 8.8 (12.0-20.0); CO2, Blood 32 mmol/L (21-32); Calcium, Blood 8.5 mg/dL (8.5-10.1); Chloride, Blood 101 mmol/L (98-108); Creatinine, Blood 0.57 mg/dL (0.40-1.00); Ethanol (Alcohol), Blood, Med <3 mg/dL; Globulin, Blood 3.9 g/dL (2.2-4.0); Glomerular Filtration Rate >60 (60-); Glucose, Blood 352 mg/dL (70-99); Potassium, Blood 3.1 mmol/L (3.5-5.5); Sodium, Blood 138 mmol/L (136-145); Total Protein, Blood 6.2 g/dL (6.4-8.2)
== END 2021-02-06 17:24 | disposition home or self-care (01) ==
LOC: ER 10:53
PROVIDERS: Physician Assistant
DX: M25.551 Pain in right hip (principal); M25.552 Pain in left hip; I11.0 Hypertensive heart disease with heart failure; I50.9 Heart failure, unspecified; E11.9 Type 2 diabetes mellitus without complications; J44.9 Chronic obstructive pulmonary disease, unspecified; Z86.73 Personal history of transient ischemic attack (TIA), and cerebral infarction without residual deficits; F17.210 Nicotine dependence, cigarettes, uncomplicated; Z88.0 Allergy status to penicillin; Z88.2 Allergy status to sulfonamides; Z88.5 Allergy status to narcotic agent; Z88.8 Allergy status to other drugs, medicaments and biological substances; Z79.899 Other long term (current) drug therapy; Z79.82 Long term (current) use of aspirin; Z79.4 Long term (current) use of insulin; W01.0XXA Fall on same level from slipping, tripping and stumbling without subsequent striking against object, initial encounter; Y93.E1 Activity, personal bathing and showering
CPT/HCPCS: 73522; 80053; 85025; 96374; 96375; 99284-25; A9270; G0480; J1170; J1885

== ENCOUNTER 2021-02-12 11:08 | Emergency (ER) | payer MEDICARE, OTHER ==
[~2021-02-12] VITALS: Ht 162.6 cm; Wt 106.6 kg
[~2021-02-12 11:08] MED LIST changes: -Aspir 8181 MG PO; -BASAGLAR K100 UNIT/1 SC; -CYMBALTA30 M2 PO; -FAMO20 PO; -HYDROCHLOROTH12.5 MG PO; -LOSA50 PO; -METOPROLOL TAR100 M4 PO; -PREGABALIN100 MG PO; -REMERON15 M4 PO
[2021-02-12 11:49] LABS: BASOPHILS ABSOLUTE AUTO 0.03 K/mm3 (0.00-0.23); BASOPHILS PERCENT AUTO 1 % (0-2); EOSINOPHILS ABSOLUTE AUTO 0.18 K/mm3 (0.00-0.68); EOSINOPHILS PERCENT AUTO 3 % (0-6); Hematocrit 42.5 % (33.0-51.0); Hemoglobin 14.9 g/dL (11.5-16.0); IMMATURE GRAN ABSOLUTE AUTO 0.02 K/mm3 (0.00-0.10); IMMATURE GRAN PERCENT AUTO 0 % (0-1); LYMPHOCYTES ABSOLUTE AUTO 1.49 K/mm3 (0.84-5.20); LYMPHOCYTES PERCENT AUTO 23 % (21-46); MONOCYTES ABSOLUTE AUTO 0.52 K/mm3 (0.16-1.47); MONOCYTES PERCENT AUTO 8 % (4-13); Mean Corpuscular HGB 30.5 pg (26.0-34.0); Mean Corpuscular HGB Conc 35.1 g/dL (31.5-36.5); Mean Corpuscular Volume 87 fL (80-100); Mean Platelet Volume 9.8 fL (9.1-12.4); NEUTROPHILS ABSOLUTE AUTO 4.28 K/mm3 (1.96-9.15); NEUTROPHILS PERCENT AUTO 66 % (41-73); Platelet Count 236 K/mm3 (150-400); RDW Coefficient Variation 13.2 % (11.7-14.2); RDW Standard Deviation 41.1 fL (35.1-46.3); Red Blood Cell Count 4.89 M/mm3 (3.80-5.20); White Blood Cell Count 6.52 K/mm3 (4.00-11.30)
[2021-02-12 11:59] LABS: Alanine Aminotransfer (ALT/SGP 22 U/L (12-78); Albumin, Blood 2.7 g/dL (3.4-5.0); Albumin/Globulin Ratio 0.7 (0.8-1.8); Alk Phos 104 U/L (50-136); Anion Gap 6 mmol/L (6-16); Aspartate Aminotrans (AST/SGOT 15 U/L (12-37); Bilirubin, Total 0.5 mg/dL (0.1-1.0); Blood Urea Nitrogen 6 mg/dL (8-24); Bun/Creatinine Ratio 12.2 (12.0-20.0); CO2, Blood 30 mmol/L (21-32); Calcium, Blood 8.5 mg/dL (8.5-10.1); Chloride, Blood 102 mmol/L (98-108); Creatinine, Blood 0.49 mg/dL (0.40-1.00); Globulin, Blood 3.9 g/dL (2.2-4.0); Glomerular Filtration Rate >60 (60-); Glucose, Blood 325 mg/dL (70-99); Potassium, Blood 3.5 mmol/L (3.5-5.5); Sodium, Blood 138 mmol/L (136-145); Total Protein, Blood 6.6 g/dL (6.4-8.2); Troponin I <0.015 ng/mL (0.000-0.040)
[2021-02-12] MEDS ORDERED: CLIN300 PO (13:30)
[2021-02-12] MEDS ORDERED: TRAM50 PO (13:30)
[2021-02-13] MEDS ORDERED: Percocet 5-3251 EACH PO (11:48)
[2021-02-13] MEDS ORDERED: CYMBALTA30 M2 PO (12:34)
[2021-02-13] MEDS ORDERED: PRAV20 PO (12:34)
[2021-02-13] MEDS ORDERED: LOSA50 PO (12:36)
[2021-02-13] MEDS ORDERED: BASAGLAR K100 UNIT/3 SC (12:36)
[2021-02-13] MEDS ORDERED: ASPI325 PO (13:17)
[2021-02-13] MEDS ORDERED: REMERON15 M4 PO (13:17)
[2021-02-13] MEDS ORDERED: HYDROCHLOROTH12.5 MG PO (13:17)
[2021-02-13] MEDS ORDERED: FAMO10 PO (13:18)
[2021-02-13] MEDS ORDERED: PREGABALIN100 MG PO (13:18)
[2021-02-13] MEDS ORDERED: METOPROLOL TAR100 M4 PO (13:19)
== END 2021-02-12 15:27 | disposition home or self-care (01) ==
LOC: ER 11:08
PROVIDERS: Emergency Medicine
DX: N61.0 Mastitis without abscess (principal); E11.65 Type 2 diabetes mellitus with hyperglycemia; I11.0 Hypertensive heart disease with heart failure; I50.9 Heart failure, unspecified; J44.9 Chronic obstructive pulmonary disease, unspecified; I25.10 Atherosclerotic heart disease of native coronary artery without angina pectoris; Z86.73 Personal history of transient ischemic attack (TIA), and cerebral infarction without residual deficits; M19.90 Unspecified osteoarthritis, unspecified site; F17.210 Nicotine dependence, cigarettes, uncomplicated; Z88.0 Allergy status to penicillin; Z88.2 Allergy status to sulfonamides; Z88.5 Allergy status to narcotic agent; Z88.8 Allergy status to other drugs, medicaments and biological substances; Z79.4 Long term (current) use of insulin; Z79.899 Other long term (current) drug therapy; Z79.82 Long term (current) use of aspirin
CPT/HCPCS: 71045; 76604; 80053; 84484; 85025; 93005; 93010; 96365; 96375; 99285-25; J1170; J2270; J2405; J7030

== ENCOUNTER 2021-02-13 08:33 | Emergency (ER) | payer MEDICARE, OTHER ==
[~2021-02-13] VITALS: Ht 162.6 cm; Wt 90.3 kg
[2021-02-13 09:38] LABS: BASOPHILS ABSOLUTE AUTO 0.04 K/mm3 (0.00-0.23); BASOPHILS PERCENT AUTO 1 % (0-2); EOSINOPHILS ABSOLUTE AUTO 0.19 K/mm3 (0.00-0.68); EOSINOPHILS PERCENT AUTO 3 % (0-6); Hematocrit 43.3 % (33.0-51.0); Hemoglobin 14.7 g/dL (11.5-16.0); IMMATURE GRAN ABSOLUTE AUTO 0.03 K/mm3 (0.00-0.10); IMMATURE GRAN PERCENT AUTO 1 % (0-1); LYMPHOCYTES ABSOLUTE AUTO 1.38 K/mm3 (0.84-5.20); LYMPHOCYTES PERCENT AUTO 23 % (21-46); MONOCYTES ABSOLUTE AUTO 0.55 K/mm3 (0.16-1.47); MONOCYTES PERCENT AUTO 9 % (4-13); Mean Corpuscular HGB 30.2 pg (26.0-34.0); Mean Corpuscular HGB Conc 33.9 g/dL (31.5-36.5); Mean Corpuscular Volume 89 fL (80-100); Mean Platelet Volume 9.6 fL (9.1-12.4); NEUTROPHILS ABSOLUTE AUTO 3.94 K/mm3 (1.96-9.15); NEUTROPHILS PERCENT AUTO 64 % (41-73); Platelet Count 224 K/mm3 (150-400); RDW Coefficient Variation 13.3 % (11.7-14.2); RDW Standard Deviation 43.6 fL (35.1-46.3); Red Blood Cell Count 4.86 M/mm3 (3.80-5.20); White Blood Cell Count 6.13 K/mm3 (4.00-11.30)
[2021-02-13 09:59] LABS: Alanine Aminotransfer (ALT/SGP 24 U/L (12-78); Albumin, Blood 2.6 g/dL (3.4-5.0); Albumin/Globulin Ratio 0.7 (0.8-1.8); Alk Phos 118 U/L (50-136); Anion Gap 5 mmol/L (6-16); Aspartate Aminotrans (AST/SGOT 29 U/L (12-37); Bilirubin, Total 0.4 mg/dL (0.1-1.0); Blood Urea Nitrogen 8 mg/dL (8-24); Bun/Creatinine Ratio 16.4 (12.0-20.0); CO2, Blood 30 mmol/L (21-32); Calcium, Blood 8.6 mg/dL (8.5-10.1); Chloride, Blood 102 mmol/L (98-108); Creatinine, Blood 0.49 mg/dL (0.40-1.00); Globulin, Blood 3.9 g/dL (2.2-4.0); Glomerular Filtration Rate >60 (60-); Glucose, Blood 403 mg/dL (70-99); Potassium, Blood 3.6 mmol/L (3.5-5.5); Sodium, Blood 137 mmol/L (136-145); Total Protein, Blood 6.5 g/dL (6.4-8.2)
[2021-02-13] MEDS ORDERED: Percocet 5-3251 EACH PO (11:48)
[2021-02-13] MEDS ORDERED: PRAV20 PO (12:34)
[2021-02-13] MEDS ORDERED: CYMBALTA30 M2 PO (12:34)
[2021-02-13] MEDS ORDERED: LOSA50 PO (12:36)
[2021-02-13] MEDS ORDERED: BASAGLAR K100 UNIT/3 SC (12:36)
[2021-02-13] MEDS ORDERED: ASPI325 PO (13:17)
[2021-02-13] MEDS ORDERED: REMERON15 M4 PO (13:17)
[2021-02-13] MEDS ORDERED: HYDROCHLOROTH12.5 MG PO (13:17)
[2021-02-13] MEDS ORDERED: FAMO10 PO (13:18)
[2021-02-13] MEDS ORDERED: PREGABALIN100 MG PO (13:18)
[2021-02-13] MEDS ORDERED: METOPROLOL TAR100 M4 PO (13:19)
== END 2021-02-13 15:34 | disposition home or self-care (01) ==
LOC: ER 08:33
PROVIDERS: Physician Assistant
DX: N61.0 Mastitis without abscess (principal); I11.0 Hypertensive heart disease with heart failure; I50.9 Heart failure, unspecified; E11.9 Type 2 diabetes mellitus without complications; J44.9 Chronic obstructive pulmonary disease, unspecified; I25.10 Atherosclerotic heart disease of native coronary artery without angina pectoris; Z88.0 Allergy status to penicillin; Z88.2 Allergy status to sulfonamides; Z88.8 Allergy status to other drugs, medicaments and biological substances; Z79.82 Long term (current) use of aspirin; Z79.4 Long term (current) use of insulin; Z79.899 Other long term (current) drug therapy; F17.210 Nicotine dependence, cigarettes, uncomplicated
CPT/HCPCS: 36415; 80053; 85025; 99284-25; J1170; J3370; J7050

== ENCOUNTER 2021-02-18 11:34 | Inpatient (IN) | payer MEDICARE, OTHER ==
[~2021-02-18] VITALS: Ht 162.6 cm; Wt 94.3 kg
[~2021-02-18 11:34] MED LIST changes: +BASAGLAR K100 UNIT/3 SC; +CYMBALTA30 M2 PO; +FAMO10 PO; +HYDROCHLOROTH12.5 MG PO; +LOSA50 PO; +METOPROLOL TAR100 M4 PO; +PREGABALIN100 MG PO; +Percocet 5-3251 EACH PO; +REMERON15 M4 PO
[2021-02-18 12:39] LABS: BASOPHILS ABSOLUTE AUTO 0.04 K/mm3 (0.00-0.23); BASOPHILS PERCENT AUTO 1 % (0-2); EOSINOPHILS ABSOLUTE AUTO 0.12 K/mm3 (0.00-0.68); EOSINOPHILS PERCENT AUTO 2 % (0-6); Hematocrit 46.3 % (33.0-51.0); IMMATURE GRAN ABSOLUTE AUTO 0.03 K/mm3 (0.00-0.10); IMMATURE GRAN PERCENT AUTO 0 % (0-1); LYMPHOCYTES ABSOLUTE AUTO 1.38 K/mm3 (0.84-5.20); LYMPHOCYTES PERCENT AUTO 19 % (21-46); MONOCYTES ABSOLUTE AUTO 0.58 K/mm3 (0.16-1.47); MONOCYTES PERCENT AUTO 8 % (4-13); Mean Corpuscular HGB 30.8 pg (26.0-34.0); Mean Corpuscular HGB Conc 34.6 g/dL (31.5-36.5); Mean Corpuscular Volume 89 fL (80-100); Mean Platelet Volume 9.2 fL (9.1-12.4); NEUTROPHILS ABSOLUTE AUTO 5.17 K/mm3 (1.96-9.15); NEUTROPHILS PERCENT AUTO 71 % (41-73); Platelet Count 250 K/mm3 (150-400); RDW Coefficient Variation 13.3 % (11.7-14.2); RDW Standard Deviation 43.4 fL (35.1-46.3); White Blood Cell Count 7.32 K/mm3 (4.00-11.30)
[2021-02-18 12:54] LABS: Alanine Aminotransfer (ALT/SGP 26 U/L (12-78); Albumin, Blood 2.7 g/dL (3.4-5.0); Albumin/Globulin Ratio 0.6 (0.8-1.8); Alk Phos 139 U/L (50-136); Anion Gap 4 mmol/L (6-16); Aspartate Aminotrans (AST/SGOT 21 U/L (12-37); Bilirubin, Total 0.4 mg/dL (0.1-1.0); Blood Urea Nitrogen 7 mg/dL (8-24); Bun/Creatinine Ratio 16.2 (12.0-20.0); CO2, Blood 28 mmol/L (21-32); Calcium, Blood 8.7 mg/dL (8.5-10.1); Chloride, Blood 103 mmol/L (98-108); Creatinine, Blood 0.43 mg/dL (0.40-1.00); Globulin, Blood 4.5 g/dL (2.2-4.0); Glomerular Filtration Rate >60 (60-); Glucose, Blood 377 mg/dL (70-99); Potassium, Blood 3.7 mmol/L (3.5-5.5); Sodium, Blood 135 mmol/L (136-145); Total Protein, Blood 7.2 g/dL (6.4-8.2)
--- NOTE | 2021-02-18 18:46 | NUR ---
PATIENT ARRIVED TO THE FLOOR FROM PACU AT THIS TIME. MADE COMFORTABLE IN BED. AAOX4, ABLE TO MAKE NEEDS KNOWN, DROWSY BUT EASILY AWAKENS TO NAME. CALL LIGHTN IN REACH. ROOM AIR. LUNG SOUNDS DIMINISHED. COUGH NOTED. PATIENT IS A SMOKER. DRESSING TO LEFT BREAST IS CDI-ABD PAD WITH BREST BINDER IN PLACE. LYING ON LEFT SIDE PER HER REQUEST.
[2021-02-19 03:48] LABS: BASOPHILS ABSOLUTE AUTO 0.02 K/mm3 (0.00-0.23); BASOPHILS PERCENT AUTO 0 % (0-2); EOSINOPHILS PERCENT AUTO 0 % (0-6); Hematocrit 42.6 % (33.0-51.0); Hemoglobin 14.2 g/dL (11.5-16.0); IMMATURE GRAN ABSOLUTE AUTO 0.02 K/mm3 (0.00-0.10); IMMATURE GRAN PERCENT AUTO 0 % (0-1); LYMPHOCYTES ABSOLUTE AUTO 0.71 K/mm3 (0.84-5.20); LYMPHOCYTES PERCENT AUTO 15 % (21-46); MONOCYTES ABSOLUTE AUTO 0.11 K/mm3 (0.16-1.47); MONOCYTES PERCENT AUTO 2 % (4-13); Mean Corpuscular HGB 29.9 pg (26.0-34.0); Mean Corpuscular HGB Conc 33.3 g/dL (31.5-36.5); Mean Corpuscular Volume 90 fL (80-100); Mean Platelet Volume 9.3 fL (9.1-12.4); NEUTROPHILS ABSOLUTE AUTO 4.01 K/mm3 (1.96-9.15); NEUTROPHILS PERCENT AUTO 82 % (41-73); Platelet Count 255 K/mm3 (150-400); RDW Coefficient Variation 13.1 % (11.7-14.2); Red Blood Cell Count 4.75 M/mm3 (3.80-5.20); White Blood Cell Count 4.87 K/mm3 (4.00-11.30)
--- NOTE | 2021-02-19 04:09 | NUR ---
SHIFT SUMMARY A/OX4, PLEASANT AND COOPERATIVE WITH CARE. PT C/O OF MODERATE PAIN TO BACK AND L. BREAST, MEDICATED PER EMAR. DRESSING TO L. BREAST C/D/I WITH BINDER IN PLACE. 1 ASSIST TO BSC. VSS, NO ACUTE CHANGES AT THIS TIME. BED IN LOWEST POSITION WITH CALL LIGHT IN REACH. WILL CONTINUE TO MONITOR AND REPORT TO ONCOMING RN.
[2021-02-19 04:10] LABS: Alanine Aminotransfer (ALT/SGP 18 U/L (12-78); Albumin, Blood 2.2 g/dL (3.4-5.0); Albumin/Globulin Ratio 0.6 (0.8-1.8); Alk Phos 102 U/L (50-136); Anion Gap 3 mmol/L (6-16); Aspartate Aminotrans (AST/SGOT 13 U/L (12-37); Bilirubin, Total 0.4 mg/dL (0.1-1.0); Blood Urea Nitrogen 12 mg/dL (8-24); Bun/Creatinine Ratio 23.4 (12.0-20.0); CO2, Blood 30 mmol/L (21-32); Calcium, Blood 8.2 mg/dL (8.5-10.1); Chloride, Blood 104 mmol/L (98-108); Creatinine, Blood 0.51 mg/dL (0.40-1.00); Glomerular Filtration Rate >60 (60-); Glucose, Blood 424 mg/dL (70-99); Potassium, Blood 4.3 mmol/L (3.5-5.5); Sodium, Blood 137 mmol/L (136-145); Total Protein, Blood 6.2 g/dL (6.4-8.2)
--- NOTE | 2021-02-19 18:16 | NUR ---
PATIENT HAD A GOOD DAY TODAY. PATIENT AAOX3. ABLE TO MAKE NEEDS AND WANTS KNOWN. PT UNABLE TO EVAL PATIENT TODAY DUE TO PATIENTS REFUSAL. OT DID EVAL AND PATIENT DID WELL. PATIENT ABLE TO STAND AND PIVOT FROM BED TO WC AND WC TO BED. PATIENT ABLE TO SHOWER HERSELF INDEPENDTLY AFTER GETTING INTO SHOWER WITH ASSIST. PATIENT COMPLAINS OF MOSTLY HER CHRONIC BACK PAIN AND HAS BEEN MEDICATED WITH PRN PAIN MEDS. NO SIGNS OR SYMPTOMS ACUTE DISTRESS NOTED AT THIS TIME. LYING IN BED WITH EYES CLOSED. CALL LIGHT AND WATER IN EASY REACH. WILL CONTINUE TO MONTIOR.
--- NOTE | 2021-02-20 06:26 | NUR ---
AAOX4. NO ACUTE DISTRESS NOTED. PAIN MANAGED WITH PAIN MEDICATION. CHEST DRESSING C/D/I. 0500 AM BS 72. DRINK 120 ML ORANGE JUICE, HALF HOUR LATER BS 82.
[2021-02-20 07:30] LABS: BASOPHILS ABSOLUTE AUTO 0.03 K/mm3 (0.00-0.23); BASOPHILS PERCENT AUTO 0 % (0-2); EOSINOPHILS ABSOLUTE AUTO 0.09 K/mm3 (0.00-0.68); EOSINOPHILS PERCENT AUTO 1 % (0-6); Hematocrit 39.4 % (33.0-51.0); Hemoglobin 13.2 g/dL (11.5-16.0); IMMATURE GRAN ABSOLUTE AUTO 0.03 K/mm3 (0.00-0.10); IMMATURE GRAN PERCENT AUTO 0 % (0-1); LYMPHOCYTES ABSOLUTE AUTO 2.36 K/mm3 (0.84-5.20); LYMPHOCYTES PERCENT AUTO 32 % (21-46); MONOCYTES ABSOLUTE AUTO 0.69 K/mm3 (0.16-1.47); MONOCYTES PERCENT AUTO 9 % (4-13); Mean Corpuscular HGB 30.1 pg (26.0-34.0); Mean Corpuscular HGB Conc 33.5 g/dL (31.5-36.5); Mean Corpuscular Volume 90 fL (80-100); Mean Platelet Volume 9.5 fL (9.1-12.4); NEUTROPHILS PERCENT AUTO 57 % (41-73); Platelet Count 250 K/mm3 (150-400); RDW Coefficient Variation 13.4 % (11.7-14.2); RDW Standard Deviation 43.9 fL (35.1-46.3); Red Blood Cell Count 4.39 M/mm3 (3.80-5.20)
[2021-02-20 07:52] LABS: Anion Gap 2 mmol/L (6-16); Blood Urea Nitrogen 19 mg/dL (8-24); CO2, Blood 32 mmol/L (21-32); Calcium, Blood 8.5 mg/dL (8.5-10.1); Chloride, Blood 108 mmol/L (98-108); Creatinine, Blood 0.61 mg/dL (0.40-1.00); Glomerular Filtration Rate >60 (60-); Glucose, Blood 80 mg/dL (70-99); Potassium, Blood 3.3 mmol/L (3.5-5.5); Sodium, Blood 142 mmol/L (136-145)
[2021-02-20 07:54] LABS: Vancomycin, Trough 15.9 ug/mL (5.0-10.0)
--- NOTE | 2021-02-21 06:03 | NUR ---
MINIMAL DRAINAGE FROM VENESSA DRAIN. DSG DID NOT NEED TO BE CHANGED. PAIN CONTROLLED THROUGHOUT SHIFT W/ IV MORPHINE AND PO NORCO. PT WHEELCHAIR BOUND AT BASELINE. IND USES WC TO MOVE TO BATHROOM/BACK TO BED. PT TO HOPEFULLY DISCHARGE IN 1-2 DAYS WITH HH. PHYSICIAN TO REMOVE VENESSA DRAIN PRIOR TO D/C
[2021-02-21 09:44] LABS: Anion Gap 3 mmol/L (6-16); Blood Urea Nitrogen 16 mg/dL (8-24); Bun/Creatinine Ratio 23.7 (12.0-20.0); CO2, Blood 32 mmol/L (21-32); Calcium, Blood 8.4 mg/dL (8.5-10.1); Chloride, Blood 104 mmol/L (98-108); Creatinine, Blood 0.68 mg/dL (0.40-1.00); Glomerular Filtration Rate >60 (60-); Glucose, Blood 165 mg/dL (70-99); Potassium, Blood 3.6 mmol/L (3.5-5.5); Sodium, Blood 139 mmol/L (136-145)
--- NOTE | 2021-02-21 10:54 | NUR ---
SHIFT SUMMARY PATIENT WAS HYPOGLYCEMIC THIS AM, BG 74. 8OZ APPLE JUICE GIVEN WITH GHRAMN CRACKERS; BG 102 UPON RECHECK. PATIENT SYMPTOMATIC, STATES SHE IS DIZZY AND CONFUSED. MD DR Cuba NOTIFIED AND HALF AMP DEXTROSE ORDERED AND GIVEN. BG 165 AFTER AMP GIVEN. PATIENT STATES SHE FEELS BETTER. ALL INSULIN HELD THIS AM
--- NOTE | 2021-02-22 06:11 | NUR ---
PT TOOK SHOWER AT CHANGE OF SHIFT. ABLE TO UTILIZE WC INDEPENDENTLY FROM BED TO TOILET TO SHOWER. PAIN MANAGED THROUGHOUT SHIFT W/ ORDERED PAIN MEDICATION. BLOOD SUGAR HS 274. BLOOD SUGAR AT [phone]. AT APPROX 0430 PT BECAME CONFUSED BUT WAS REORIENTED. PT ABLE TO ANSWER ORIENTATION QUESTIONS AND PERFORM NEURO EXAM. PT NO LONGER UTILIZING CALL LIGHT, BUT CALLING OUT WHEN IN NEED OF ASSISTANCE. PT REEDUCATED ABOUT USE OF CALL LIGHT. WILL CONTINUE TO MONITOR THROUGH END OF SHIFT.
[2021-02-22 07:56] LABS: Vancomycin, Trough 20.1 ug/mL (5.0-10.0)
--- NOTE | 2021-02-22 16:58 | NUR ---
SHIFT SUMMARY PATIENT AOX4, STATES SHE HAS 'PERIODS OF CONFUSION' HOWEVER DOES NOT LAST LONG. BG CHECKED AC WITH RESULTS OF 299 IN AM, 340 AT LUNCH AND 205 AT DINNER. COVERAGE GIVEN. PATIENT WITH GOOD APPETITE EATING 100% OF ALL MEALS. PATIENT UP WITH SBA TO BR, VENESSA DRAIN REMOVED BY DR WILSON ON SHIFT NOW IRON PLASTIC BULLET MAKER. VSS.
[2021-02-23 04:25] LABS: BASOPHILS ABSOLUTE AUTO 0.04 K/mm3 (0.00-0.23); BASOPHILS PERCENT AUTO 1 % (0-2); EOSINOPHILS ABSOLUTE AUTO 0.13 K/mm3 (0.00-0.68); EOSINOPHILS PERCENT AUTO 3 % (0-6); Hemoglobin 13.8 g/dL (11.5-16.0); IMMATURE GRAN ABSOLUTE AUTO 0.02 K/mm3 (0.00-0.10); IMMATURE GRAN PERCENT AUTO 1 % (0-1); LYMPHOCYTES ABSOLUTE AUTO 1.62 K/mm3 (0.84-5.20); LYMPHOCYTES PERCENT AUTO 37 % (21-46); MONOCYTES ABSOLUTE AUTO 0.55 K/mm3 (0.16-1.47); MONOCYTES PERCENT AUTO 13 % (4-13); Mean Corpuscular HGB 29.7 pg (26.0-34.0); Mean Corpuscular HGB Conc 32.9 g/dL (31.5-36.5); Mean Corpuscular Volume 90 fL (80-100); NEUTROPHILS ABSOLUTE AUTO 2.03 K/mm3 (1.96-9.15); NEUTROPHILS PERCENT AUTO 46 % (41-73); Platelet Count 220 K/mm3 (150-400); RDW Coefficient Variation 13.4 % (11.7-14.2); RDW Standard Deviation 44.7 fL (35.1-46.3); Red Blood Cell Count 4.65 M/mm3 (3.80-5.20); White Blood Cell Count 4.39 K/mm3 (4.00-11.30)
[2021-02-23 04:46] LABS: Anion Gap 3 mmol/L (6-16); Blood Urea Nitrogen 11 mg/dL (8-24); Bun/Creatinine Ratio 19.6 (12.0-20.0); CO2, Blood 29 mmol/L (21-32); Calcium, Blood 8.2 mg/dL (8.5-10.1); Chloride, Blood 103 mmol/L (98-108); Creatinine, Blood 0.56 mg/dL (0.40-1.00); Glomerular Filtration Rate >60 (60-); Glucose, Blood 337 mg/dL (70-99); Potassium, Blood 3.7 mmol/L (3.5-5.5); Sodium, Blood 135 mmol/L (136-145)
--- NOTE | 2021-02-23 06:27 | NUR ---
VSS. PAIN MANAGED W/ IV AND PO PAIN MEDS. PT EDUCATED ABOUT ATTEMPTING TO USE MOSTLY PO PAIN MEDICATIONS. STAND/PIVOT TO WC INDEPENDENTLY. BLOOD GLUCOSE 321. 10 UNITS GLARGINE GIVEN NEAR START OF SHIFT. NO ISSUES OVERNIGHT.
[2021-02-23] MEDS ORDERED: VISBIOME 112.51 EACH PO (13:18)
[2021-02-23] MEDS ORDERED: Norco 5-325 Ta1 EACH PO (13:19)
[2021-02-23] MEDS ORDERED: DOXY100 PO (13:22)
[2021-02-23] MEDS ORDERED: ASPI81CH PO (13:25)
[2021-02-23] MEDS ORDERED: BASAGLAR K100 UNIT/1 SC (13:26)
[2021-02-23] MEDS ORDERED: METO50 PO (13:26)
--- NOTE | 2021-02-23 13:53 | NUR ---
DISCHARGE NOTE PATIENT DISCHARGED AT 1345 VIA WHEELCHAIR TO PERSONAL VEHICLE. DISCHARGE INSTRUCTIONS GIVEN TO PATIENT, PATIENT VERBALIZED UNDSTANDING OF DISCHARGE INSTUCTIONS. PRESRIPTIONS FAXED TO [facility]. PRESICRIPTION FOR NARCOTIC GIVEN TO PATIENT. NO SIGNS OR SYMPTOMS ACUTE DISTRESS NOTED. DRESSING GIVEN TO PATIENT FOR DRESSINGS TO LEFT BREAST INCISION SITE.
== END 2021-02-23 14:13 | disposition home or self-care (01) | DRG 584 ==
LOC: ER 11:34 → SURS 18:32
PROVIDERS: Family Medicine; Physician Assistant; Student in an Organized Health Care Education/Training Program; Surgery; ADMIT Internal Medicine
PROC: 0H9U0ZZ Drainage of Left Breast, Open Approach (ICD-10-PCS; principal; 2021-02-18 17:00)
DX: N61.1 Abscess of the breast and nipple (principal); I50.32 Chronic diastolic (congestive) heart failure; I11.0 Hypertensive heart disease with heart failure; E66.9 Obesity, unspecified; M19.90 Unspecified osteoarthritis, unspecified site; E11.59 Type 2 diabetes mellitus with other circulatory complications; Z99.3 Dependence on wheelchair; E11.649 Type 2 diabetes mellitus with hypoglycemia without coma; B95.62 Methicillin resistant Staphylococcus aureus infection as the cause of diseases classified elsewhere; Z88.0 Allergy status to penicillin; Z88.5 Allergy status to narcotic agent; Z88.2 Allergy status to sulfonamides; Z88.8 Allergy status to other drugs, medicaments and biological substances; I25.10 Atherosclerotic heart disease of native coronary artery without angina pectoris; Z79.82 Long term (current) use of aspirin; Z79.899 Other long term (current) drug therapy; F17.210 Nicotine dependence, cigarettes, uncomplicated; Z98.890 Other specified postprocedural states; I16.0 Hypertensive urgency; E11.65 Type 2 diabetes mellitus with hyperglycemia; E88.09 Other disorders of plasma-protein metabolism, not elsewhere classified
CPT/HCPCS: 36415; 76604; 80048; 80053; 80202; 82947; 83036; 83605; 83880; 84145; 85025; 85651; 86141; 87040; 87070; 87075; 87077; 87147; 87186; 87205; 96374; 96375; 97110; 97162; 97165; 97530; 97535; 99285-25; A9270; J0295; J1170; J1650; J1815; J2001; J2270; J2405; J3010; J3370; J7030; J7120

== ENCOUNTER 2021-02-26 03:22 | Emergency (ER) | payer MEDICARE, OTHER ==
[~2021-02-26] VITALS: Ht 162.6 cm; Wt 106.6 kg
[~2021-02-26 03:22] MED LIST changes: +ASPI81CH PO; +BASAGLAR K100 UNIT/1 SC; +DOXY100 PO; +Norco 5-325 Ta1 EACH PO; +VISBIOME 112.51 EACH PO
== END 2021-02-26 06:44 | disposition home or self-care (01) ==
LOC: ER 03:22
DX: R51.9 Headache, unspecified (principal); J44.9 Chronic obstructive pulmonary disease, unspecified; I11.0 Hypertensive heart disease with heart failure; I50.9 Heart failure, unspecified; E11.9 Type 2 diabetes mellitus without complications; F17.210 Nicotine dependence, cigarettes, uncomplicated; Z79.899 Other long term (current) drug therapy; Z88.2 Allergy status to sulfonamides; Z88.0 Allergy status to penicillin
CPT/HCPCS: 70450; 96374; 96375; 99285-25; J1790; J1885

== ENCOUNTER 2021-02-26 22:13 | Emergency (ER) | payer MEDICARE, OTHER ==
[~2021-02-26] VITALS: Ht 162.6 cm; Wt 106.6 kg
[2021-02-26 22:55] LABS: BASOPHILS ABSOLUTE AUTO 0.03 K/mm3 (0.00-0.23); BASOPHILS PERCENT AUTO 1 % (0-2); EOSINOPHILS ABSOLUTE AUTO 0.12 K/mm3 (0.00-0.68); EOSINOPHILS PERCENT AUTO 3 % (0-6); Hematocrit 44.2 % (33.0-51.0); Hemoglobin 14.8 g/dL (11.5-16.0); IMMATURE GRAN ABSOLUTE AUTO 0.02 K/mm3 (0.00-0.10); IMMATURE GRAN PERCENT AUTO 0 % (0-1); LYMPHOCYTES ABSOLUTE AUTO 1.36 K/mm3 (0.84-5.20); LYMPHOCYTES PERCENT AUTO 28 % (21-46); MONOCYTES PERCENT AUTO 10 % (4-13); Mean Corpuscular HGB 29.7 pg (26.0-34.0); Mean Corpuscular HGB Conc 33.5 g/dL (31.5-36.5); Mean Corpuscular Volume 89 fL (80-100); Mean Platelet Volume 9.9 fL (9.1-12.4); NEUTROPHILS ABSOLUTE AUTO 2.77 K/mm3 (1.96-9.15); NEUTROPHILS PERCENT AUTO 58 % (41-73); Platelet Count 269 K/mm3 (150-400); RDW Coefficient Variation 13.3 % (11.7-14.2); RDW Standard Deviation 43.6 fL (35.1-46.3); Red Blood Cell Count 4.98 M/mm3 (3.80-5.20)
[2021-02-26 23:11] LABS: Acetaminophen, Random <2.0 ug/mL (10.0-30.0); Alanine Aminotransfer (ALT/SGP 25 U/L (12-78); Albumin, Blood 2.7 g/dL (3.4-5.0); Albumin/Globulin Ratio 0.6 (0.8-1.8); Alk Phos 129 U/L (50-136); Anion Gap 5 mmol/L (6-16); Aspartate Aminotrans (AST/SGOT 20 U/L (12-37); Bilirubin, Total 0.4 mg/dL (0.1-1.0); Blood Urea Nitrogen 11 mg/dL (8-24); Bun/Creatinine Ratio 19.5 (12.0-20.0); CO2, Blood 27 mmol/L (21-32); Calcium, Blood 8.6 mg/dL (8.5-10.1); Chloride, Blood 104 mmol/L (98-108); Creatinine, Blood 0.57 mg/dL (0.40-1.00); Ethanol (Alcohol), Blood, Med <3 mg/dL; Globulin, Blood 4.4 g/dL (2.2-4.0); Glomerular Filtration Rate >60 (60-); Glucose, Blood 442 mg/dL (70-99); Potassium, Blood 3.8 mmol/L (3.5-5.5); Salicylate 1.8 mg/dL (2.8-20.0); Sodium, Blood 136 mmol/L (136-145); Total Protein, Blood 7.1 g/dL (6.4-8.2)
== END 2021-02-27 00:02 | disposition home or self-care (01) ==
LOC: ER 22:13
PROVIDERS: Physician Assistant
DX: F32.9 Major depressive disorder, single episode, unspecified (principal); I11.0 Hypertensive heart disease with heart failure; I50.9 Heart failure, unspecified; J44.9 Chronic obstructive pulmonary disease, unspecified; Z86.73 Personal history of transient ischemic attack (TIA), and cerebral infarction without residual deficits; F17.210 Nicotine dependence, cigarettes, uncomplicated; Z88.0 Allergy status to penicillin; Z88.2 Allergy status to sulfonamides; Z88.5 Allergy status to narcotic agent; Z88.8 Allergy status to other drugs, medicaments and biological substances; Z79.899 Other long term (current) drug therapy; Z79.82 Long term (current) use of aspirin; Z79.4 Long term (current) use of insulin
CPT/HCPCS: 36415; 80053; 85025; 99285; G0480

== ENCOUNTER 2021-03-26 12:43 | Emergency (ER) | payer MEDICARE, OTHER ==
[~2021-03-26] VITALS: Ht 162.6 cm; Wt 108.9 kg
[2021-03-26 13:44] LABS: BASOPHILS ABSOLUTE AUTO 0.02 K/mm3 (0.00-0.23); BASOPHILS PERCENT AUTO 0 % (0-2); EOSINOPHILS PERCENT AUTO 2 % (0-6); Hematocrit 41.9 % (33.0-51.0); Hemoglobin 14.8 g/dL (11.5-16.0); IMMATURE GRAN ABSOLUTE AUTO 0.03 K/mm3 (0.00-0.10); IMMATURE GRAN PERCENT AUTO 1 % (0-1); LYMPHOCYTES PERCENT AUTO 21 % (21-46); MONOCYTES ABSOLUTE AUTO 0.47 K/mm3 (0.16-1.47); MONOCYTES PERCENT AUTO 10 % (4-13); Mean Corpuscular HGB 30.3 pg (26.0-34.0); Mean Corpuscular HGB Conc 35.3 g/dL (31.5-36.5); Mean Corpuscular Volume 86 fL (80-100); Mean Platelet Volume 9.6 fL (9.1-12.4); NEUTROPHILS ABSOLUTE AUTO 3.09 K/mm3 (1.96-9.15); NEUTROPHILS PERCENT AUTO 66 % (41-73); Platelet Count 244 K/mm3 (150-400); RDW Coefficient Variation 12.7 % (11.7-14.2); RDW Standard Deviation 40.1 fL (35.1-46.3); Red Blood Cell Count 4.88 M/mm3 (3.80-5.20); White Blood Cell Count 4.71 K/mm3 (4.00-11.30)
[2021-03-26 14:09] LABS: Alanine Aminotransfer (ALT/SGP 19 U/L (12-78); Albumin, Blood 2.7 g/dL (3.4-5.0); Albumin/Globulin Ratio 0.7 (0.8-1.8); Alk Phos 89 U/L (50-136); Anion Gap 6 mmol/L (6-16); Aspartate Aminotrans (AST/SGOT 24 U/L (12-37); Bilirubin, Total 0.5 mg/dL (0.1-1.0); Blood Urea Nitrogen 5 mg/dL (8-24); CO2, Blood 29 mmol/L (21-32); Calcium, Blood 8.2 mg/dL (8.5-10.1); Chloride, Blood 102 mmol/L (98-108); Creatinine, Blood 0.42 mg/dL (0.40-1.00); Globulin, Blood 3.7 g/dL (2.2-4.0); Glomerular Filtration Rate >60 (60-); Glucose, Blood 451 mg/dL (70-99); Potassium, Blood 2.8 mmol/L (3.5-5.5); Sodium, Blood 137 mmol/L (136-145); Total Protein, Blood 6.4 g/dL (6.4-8.2)
[2021-03-26 14:58] LABS: Source, Urine Catheter
[2021-03-26 15:04] LABS: Appearance, Urine Clear (Clear); Bilirubin, Urine Neg (Neg); Blood, Urine 4+ (Neg); Glucose Qualitative, Urine 4+ (Neg); Ketones, Urine 1+ (Neg); Leukocyte Esterase, Urine Neg (Neg); Nitrite, Urine Neg (Neg); Protein, Urine Neg (Neg); Urobilinogen, Urine NORM (Normal)
[2021-03-26 15:09] LABS: Color, Urine Pale Yellow (P-Yellow)
[2021-03-26 15:10] LABS: Bacteria Few /hpf; Squamous Epithelial Cells Few /hpf (Few); White Blood Cells, Urine 0-2 /hpf (0-5)
[2021-03-26 15:27] LABS: U Amphetamine Screen DETECTED; U Barbituate Screen Not Detected; U Benzodiazapine Screen Not Detected; U Buprenorphine Screen Not Detected; U Cannabinoids Screen Not Detected; U Cocaine Screen Not Detected; U Methadone Screen Not Detected; U Methamphetamine Screen DETECTED; U Opiates Screen Not Detected; U Oxycodone Screen Not Detected; U Phencyclidine Screen Not Detected; U Propoxyphene Screen Not Detected
[2021-03-26 18:55] LABS: Influenza A, PCR NEGATIVE (NEGATIVE); Influenza B, PCR NEGATIVE (NEGATIVE); Resp Syncytial Virus, PCR NEGATIVE (NEGATIVE); SARS-Cov-2 (COVID-19) PCR, MMC NEGATIVE (NEGATIVE)
== END 2021-03-26 19:53 | disposition short-term general hospital (02) ==
LOC: ER 12:43
PROVIDERS: Emergency Medicine
DX: R32 Unspecified urinary incontinence (principal); M48.061 Spinal stenosis, lumbar region without neurogenic claudication; M51.36 Other intervertebral disc degeneration, lumbar region; E11.9 Type 2 diabetes mellitus without complications; F19.10 Other psychoactive substance abuse, uncomplicated; Z88.0 Allergy status to penicillin; Z88.2 Allergy status to sulfonamides; Z88.5 Allergy status to narcotic agent; Z88.8 Allergy status to other drugs, medicaments and biological substances; Z79.899 Other long term (current) drug therapy; Z79.4 Long term (current) use of insulin; Z79.82 Long term (current) use of aspirin; I11.0 Hypertensive heart disease with heart failure; I50.30 Unspecified diastolic (congestive) heart failure; J44.9 Chronic obstructive pulmonary disease, unspecified; I25.10 Atherosclerotic heart disease of native coronary artery without angina pectoris; M19.90 Unspecified osteoarthritis, unspecified site; F17.210 Nicotine dependence, cigarettes, uncomplicated
CPT/HCPCS: 0241U; 36415; 51701; 72131; 80053; 81001; 85025; A9270; J1885; J7120

== ENCOUNTER 2021-04-12 13:57 | Emergency (ER) | payer MEDICARE, OTHER ==
[~2021-04-12] VITALS: Ht 157.5 cm; Wt 108.9 kg
[2021-04-12 14:56] LABS: Source, Urine Clean Catch
[2021-04-12 15:01] LABS: Appearance, Urine Clear (Clear); Bilirubin, Urine Neg (Neg); Blood, Urine Neg (Neg); Color, Urine Yellow (P-Yellow); Glucose Qualitative, Urine 3+ (Neg); Ketones, Urine Neg (Neg); Leukocyte Esterase, Urine Neg (Neg); Nitrite, Urine Neg (Neg); Protein, Urine Neg (Neg); Urobilinogen, Urine NORM (Normal)
== END 2021-04-12 16:25 | disposition home or self-care (01) ==
LOC: ER 13:57
PROVIDERS: Emergency Medicine
DX: J45.901 Unspecified asthma with (acute) exacerbation (principal); M54.50 Low back pain, unspecified; G89.29 Other chronic pain; I11.0 Hypertensive heart disease with heart failure; I50.9 Heart failure, unspecified; J44.9 Chronic obstructive pulmonary disease, unspecified; E11.9 Type 2 diabetes mellitus without complications; Z86.73 Personal history of transient ischemic attack (TIA), and cerebral infarction without residual deficits; F17.210 Nicotine dependence, cigarettes, uncomplicated; Z88.0 Allergy status to penicillin; Z88.2 Allergy status to sulfonamides; Z88.5 Allergy status to narcotic agent; Z88.8 Allergy status to other drugs, medicaments and biological substances; Z79.82 Long term (current) use of aspirin; Z79.4 Long term (current) use of insulin; Z79.899 Other long term (current) drug therapy
CPT/HCPCS: 81003; 96374; 96375; 99284-25; A9270; J1885

== ENCOUNTER 2021-05-01 11:41 | Emergency (ER) | payer MEDICARE, OTHER ==
[~2021-05-01] VITALS: Ht 162.6 cm; Wt 108.9 kg
[2021-05-01 12:50] LABS: BASOPHILS ABSOLUTE AUTO 0.03 K/mm3 (0.00-0.23); BASOPHILS PERCENT AUTO 1 % (0-2); EOSINOPHILS ABSOLUTE AUTO 0.14 K/mm3 (0.00-0.68); EOSINOPHILS PERCENT AUTO 3 % (0-6); Hematocrit 47.5 % (33.0-51.0); Hemoglobin 16.6 g/dL (11.5-16.0); IMMATURE GRAN ABSOLUTE AUTO 0.01 K/mm3 (0.00-0.10); IMMATURE GRAN PERCENT AUTO 0 % (0-1); LYMPHOCYTES ABSOLUTE AUTO 1.98 K/mm3 (0.84-5.20); LYMPHOCYTES PERCENT AUTO 42 % (21-46); MONOCYTES ABSOLUTE AUTO 0.32 K/mm3 (0.16-1.47); MONOCYTES PERCENT AUTO 7 % (4-13); Mean Corpuscular HGB 29.7 pg (26.0-34.0); Mean Corpuscular HGB Conc 34.9 g/dL (31.5-36.5); Mean Corpuscular Volume 85 fL (80-100); Mean Platelet Volume 9.7 fL (9.1-12.4); NEUTROPHILS ABSOLUTE AUTO 2.28 K/mm3 (1.96-9.15); NEUTROPHILS PERCENT AUTO 48 % (41-73); Platelet Count 236 K/mm3 (150-400); RDW Coefficient Variation 12.8 % (11.7-14.2); RDW Standard Deviation 39.7 fL (35.1-46.3); Red Blood Cell Count 5.59 M/mm3 (3.80-5.20); White Blood Cell Count 4.76 K/mm3 (4.00-11.30)
[2021-05-01 13:03] LABS: Alanine Aminotransfer (ALT/SGP 37 U/L (12-78); Albumin/Globulin Ratio 0.9 (0.8-1.8); Alk Phos 124 U/L (50-136); Anion Gap 5 mmol/L (6-16); Aspartate Aminotrans (AST/SGOT 23 U/L (12-37); Bilirubin, Direct 0.1 mg/dL (0.0-0.3); Bilirubin, Indirect 0.3 mg/dL (0.1-0.7); Bilirubin, Total 0.4 mg/dL (0.1-1.0); Blood Urea Nitrogen 7 mg/dL (8-24); Bun/Creatinine Ratio 14.1 (12.0-20.0); CO2, Blood 34 mmol/L (21-32); Calcium, Blood 8.7 mg/dL (8.5-10.1); Chloride, Blood 101 mmol/L (98-108); Globulin, Blood 3.3 g/dL (2.2-4.0); Glomerular Filtration Rate >60 (60-); Glucose, Blood 343 mg/dL (70-99); Potassium, Blood 3.2 mmol/L (3.5-5.5); Sodium, Blood 140 mmol/L (136-145); Total Protein, Blood 6.3 g/dL (6.4-8.2)
[2021-05-01 13:15] LABS: Source, Urine Clean Catch
[2021-05-01 13:17] LABS: Appearance, Urine Hazy (Clear); Bilirubin, Urine Neg (Neg); Blood, Urine Neg (Neg); Color, Urine Yellow (P-Yellow); Glucose Qualitative, Urine 4+ (Neg); Ketones, Urine Neg (Neg); Leukocyte Esterase, Urine Neg (Neg); Nitrite, Urine Neg (Neg); Protein, Urine Neg (Neg); Specific Gravity, Urine 1.025 (1.003-1.022); Urobilinogen, Urine NORM (Normal)
[2021-05-01 13:33] LABS: White Blood Cells, Urine 0-2 /hpf (0-5)
[2021-05-01 13:34] LABS: Bacteria Few /hpf; Mucus Mod (0-Heavy); Red Blood Cells, Urine 0-2 /hpf (0-2); Squamous Epithelial Cells Rare /hpf (Few)
[2021-05-01 14:15] LABS: Magnesium, Blood 1.8 mg/dL (1.6-2.4); Troponin I <0.015 ng/mL (0.000-0.040)
[2021-05-01] MEDS ORDERED: IBUP400 PO (15:24)
[2021-05-01] MEDS ORDERED: ACET500 PO (15:24)
== END 2021-05-01 16:00 | disposition home or self-care (01) ==
LOC: ER 11:41
PROVIDERS: Emergency Medicine; Student in an Organized Health Care Education/Training Program
DX: R10.11 Right upper quadrant pain (principal); G89.29 Other chronic pain; M48.56XD Collapsed vertebra, not elsewhere classified, lumbar region, subsequent encounter for fracture with routine healing; Z88.0 Allergy status to penicillin; Z88.2 Allergy status to sulfonamides; Z88.5 Allergy status to narcotic agent; Z88.8 Allergy status to other drugs, medicaments and biological substances; Z79.899 Other long term (current) drug therapy; Z79.82 Long term (current) use of aspirin; Z79.4 Long term (current) use of insulin; I11.0 Hypertensive heart disease with heart failure; I50.30 Unspecified diastolic (congestive) heart failure; E11.9 Type 2 diabetes mellitus without complications; M19.90 Unspecified osteoarthritis, unspecified site; F17.210 Nicotine dependence, cigarettes, uncomplicated
CPT/HCPCS: 36415; 71046; 74177; 80048; 80076; 81001; 83690; 83735; 84484; 85025; 87086; 93005; 93010; 96374-59; 96375; 99284-25; A9270; J1885; J2270; J2405; Q9967

== ENCOUNTER → 2021-06-16 | Outpatient (CLI) | payer MEDICARE, OTHER ==
[~2021-06-16] MED LIST changes: +ACET500 PO; +IBUP400 PO
[2021-06-16 13:02] LABS: Source, Urine Clean Catch
[2021-06-16 17:51] LABS: Bilirubin, Urine Neg (Neg); Blood, Urine Neg (Neg); Glucose Qualitative, Urine 4+ (Neg); Ketones, Urine Neg (Neg); Leukocyte Esterase, Urine Neg (Neg); Nitrite, Urine Neg (Neg); Protein, Urine Neg (Neg); Urobilinogen, Urine NORM (Normal)
[2021-06-16 18:10] LABS: Appearance, Urine Clear (Clear); Color, Urine Pale Yellow (P-Yellow)
== END ==
LOC: LAB SHORT 13:00
PROVIDERS: Nurse Practitioner Family
DX: R10.9 Unspecified abdominal pain (principal); R35.0 Frequency of micturition
CPT/HCPCS: 81003; 87086

== ENCOUNTER 2022-04-10 14:42 | Emergency (ER) | payer MEDICARE, OTHER ==
[~2022-04-10] VITALS: Ht 170.2 cm; Wt 65.8 kg
[2022-04-10 15:09] LABS: BASOPHILS ABSOLUTE AUTO 0.03 K/mm3 (0.00-0.23); BASOPHILS PERCENT AUTO 1 % (0-2); EOSINOPHILS PERCENT AUTO 2 % (0-6); Hematocrit 43.5 % (33.0-51.0); Hemoglobin 15.7 g/dL (11.5-16.0); IMMATURE GRAN ABSOLUTE AUTO 0.02 K/mm3 (0.00-0.10); IMMATURE GRAN PERCENT AUTO 0 % (0-1); LYMPHOCYTES ABSOLUTE AUTO 1.52 K/mm3 (0.84-5.20); LYMPHOCYTES PERCENT AUTO 27 % (21-46); MONOCYTES ABSOLUTE AUTO 0.46 K/mm3 (0.16-1.47); MONOCYTES PERCENT AUTO 8 % (4-13); Mean Corpuscular HGB 30.9 pg (26.0-34.0); Mean Corpuscular HGB Conc 36.1 g/dL (31.5-36.5); Mean Corpuscular Volume 86 fL (80-100); Mean Platelet Volume 9.2 fL (9.1-12.4); NEUTROPHILS PERCENT AUTO 62 % (41-73); Platelet Count 245 K/mm3 (150-400); RDW Coefficient Variation 12.7 % (11.7-14.2); RDW Standard Deviation 39.5 fL (35.1-46.3); Red Blood Cell Count 5.08 M/mm3 (3.80-5.20); White Blood Cell Count 5.63 K/mm3 (4.00-11.30)
[2022-04-10 15:30] LABS: Alanine Aminotransfer (ALT/SGP 33 U/L (12-78); Albumin/Globulin Ratio 0.8 (0.8-1.8); Alk Phos 152 U/L (50-136); Anion Gap 2 mmol/L (6-16); Aspartate Aminotrans (AST/SGOT 24 U/L (12-37); Bilirubin, Total 0.3 mg/dL (0.1-1.0); Blood Urea Nitrogen 12 mg/dL (8-24); Bun/Creatinine Ratio 24.1 (12.0-20.0); C-REACTIVE PROTEIN, EXT RANGE <0.290 mg/dL (0.000-0.300); CO2, Blood 31 mmol/L (21-32); Calcium, Blood 8.6 mg/dL (8.5-10.1); Chloride, Blood 102 mmol/L (98-108); Globulin, Blood 3.6 g/dL (2.2-4.0); Glomerular Filtration Rate 102 (60-); Glucose, Blood 380 mg/dL (70-99); Potassium, Blood 4.2 mmol/L (3.5-5.5); Sodium, Blood 135 mmol/L (136-145); Total Protein, Blood 6.6 g/dL (6.4-8.2)
[2022-04-10 17:58] LABS: Source, Urine Clean Catch
[2022-04-10 18:03] LABS: Appearance, Urine Clear (Clear); Bilirubin, Urine Neg (Neg); Blood, Urine 4+ (Neg); Color, Urine Yellow (P-Yellow); Glucose Qualitative, Urine 4+ (Neg); Ketones, Urine Neg (Neg); Leukocyte Esterase, Urine 1+ (Neg); Nitrite, Urine Neg (Neg); Protein, Urine 2+ (Neg); Specific Gravity, Urine 1.015 (1.003-1.022); Urobilinogen, Urine NORM (Normal)
[2022-04-10 18:46] LABS: Hyaline Casts 0-2 /lpf (0-2)
[2022-04-10 18:47] LABS: Squamous Epithelial Cells Few /hpf (Few); White Blood Cells, Urine 0-2 /hpf (0-5)
[2022-04-10 18:48] LABS: Bacteria Rare /hpf; Mucus Light (0-Heavy)
== END 2022-04-10 20:17 | disposition home or self-care (01) ==
LOC: ER 14:42
PROVIDERS: Physician Assistant
DX: D39.8 Neoplasm of uncertain behavior of other specified female genital organs (principal); K59.00 Constipation, unspecified; D48.9 Neoplasm of uncertain behavior, unspecified; R10.2 Pelvic and perineal pain; Z88.0 Allergy status to penicillin; Z88.2 Allergy status to sulfonamides; Z88.5 Allergy status to narcotic agent; Z88.8 Allergy status to other drugs, medicaments and biological substances; I11.0 Hypertensive heart disease with heart failure; I50.30 Unspecified diastolic (congestive) heart failure; J44.9 Chronic obstructive pulmonary disease, unspecified; I25.10 Atherosclerotic heart disease of native coronary artery without angina pectoris; F17.210 Nicotine dependence, cigarettes, uncomplicated
CPT/HCPCS: 36415; 51798; 74177; 80053; 81001; 85025; 86140; 87086; A9270; J1885; Q9967

== ENCOUNTER 2022-04-26 01:33 | Emergency (ER) | payer MEDICARE, OTHER ==
[~2022-04-26] VITALS: Ht 157.5 cm; Wt 72.6 kg
[2022-04-26 02:03] LABS: BASOPHILS ABSOLUTE AUTO 0.03 K/mm3 (0.00-0.23); BASOPHILS PERCENT AUTO 1 % (0-2); EOSINOPHILS PERCENT AUTO 2 % (0-6); Hematocrit 41.2 % (33.0-51.0); Hemoglobin 15.1 g/dL (11.5-16.0); IMMATURE GRAN ABSOLUTE AUTO 0.01 K/mm3 (0.00-0.10); IMMATURE GRAN PERCENT AUTO 0 % (0-1); LYMPHOCYTES ABSOLUTE AUTO 1.69 K/mm3 (0.84-5.20); LYMPHOCYTES PERCENT AUTO 40 % (21-46); MONOCYTES ABSOLUTE AUTO 0.48 K/mm3 (0.16-1.47); MONOCYTES PERCENT AUTO 11 % (4-13); Mean Corpuscular HGB 31.7 pg (26.0-34.0); Mean Corpuscular HGB Conc 36.7 g/dL (31.5-36.5); Mean Corpuscular Volume 86 fL (80-100); Mean Platelet Volume 9.5 fL (9.1-12.4); NEUTROPHILS PERCENT AUTO 45 % (41-73); Platelet Count 253 K/mm3 (150-400); RDW Coefficient Variation 12.2 % (11.7-14.2); RDW Standard Deviation 38.7 fL (35.1-46.3); Red Blood Cell Count 4.77 M/mm3 (3.80-5.20); White Blood Cell Count 4.21 K/mm3 (4.00-11.30)
[2022-04-26 02:18] LABS: Source, Urine Clean Catch
[2022-04-26 02:20] LABS: Bilirubin, Urine Neg (Neg); Blood, Urine 1+ (Neg); Glucose Qualitative, Urine 4+ (Neg); Ketones, Urine Neg (Neg); Leukocyte Esterase, Urine 1+ (Neg); Nitrite, Urine Neg (Neg); Protein, Urine 2+ (Neg); Specific Gravity, Urine 1.015 (1.003-1.022); Urobilinogen, Urine NORM (Normal)
[2022-04-26 02:27] LABS: Albumin, Blood 2.9 g/dL (3.4-5.0); Albumin/Globulin Ratio 0.8 (0.8-1.8); Bilirubin, Total 0.2 mg/dL (0.1-1.0); Calcium, Blood 8.2 mg/dL (8.5-10.1); Creatinine, Blood 0.63 mg/dL (0.40-1.00); Globulin, Blood 3.5 g/dL (2.2-4.0); Potassium, Blood 3.9 mmol/L (3.5-5.5); Total Protein, Blood 6.4 g/dL (6.4-8.2)
[2022-04-26 02:45] LABS: Appearance, Urine Clear (Clear); Color, Urine Yellow (P-Yellow); Red Blood Cells, Urine 0-2 /hpf (0-2)
[2022-04-26 02:46] LABS: Bacteria Few /hpf; Squamous Epithelial Cells Few /hpf (Few)
== END 2022-04-26 03:27 | disposition home or self-care (01) ==
LOC: ER 01:33
PROVIDERS: Student in an Organized Health Care Education/Training Program
DX: R10.30 Lower abdominal pain, unspecified (principal); I11.0 Hypertensive heart disease with heart failure; I50.30 Unspecified diastolic (congestive) heart failure; E11.22 Type 2 diabetes mellitus with diabetic chronic kidney disease; J44.9 Chronic obstructive pulmonary disease, unspecified; I25.10 Atherosclerotic heart disease of native coronary artery without angina pectoris; F17.210 Nicotine dependence, cigarettes, uncomplicated; Z88.0 Allergy status to penicillin; Z88.2 Allergy status to sulfonamides; Z88.8 Allergy status to other drugs, medicaments and biological substances
CPT/HCPCS: 80053; 81001; 85025; J1885

== ENCOUNTER → 2022-07-16 | Outpatient (CLI) | payer MEDICARE, OTHER ==
[2022-07-16 16:59] LABS: Source, Urine Clean Catch
[2022-07-16 17:52] LABS: Appearance, Urine Hazy (Clear); Bilirubin, Urine Neg (Neg); Blood, Urine 1+ (Neg); Color, Urine Yellow (P-Yellow); Glucose Qualitative, Urine 4+ (Neg); Ketones, Urine Neg (Neg); Leukocyte Esterase, Urine 1+ (Neg); Nitrite, Urine Neg (Neg); Protein, Urine 3+ (Neg); Specific Gravity, Urine 1.025 (1.003-1.022); Urobilinogen, Urine NORM (Normal)
[2022-07-16 18:07] LABS: Amorphous Light (0-Heavy); Bacteria Many /hpf; Calcium Oxalate Crystals Mod /hpf; Red Blood Cells, Urine 0-2 /hpf (0-2); Squamous Epithelial Cells Few /hpf (Few)
== END | disposition home or self-care (01) ==
LOC: LAB 16:54 → LAB SHORT 16:54
PROVIDERS: Nurse Practitioner Family
DX: N89.8 Other specified noninflammatory disorders of vagina (principal); N94.9 Unspecified condition associated with female genital organs and menstrual cycle
CPT/HCPCS: 81001; 87077; 87086; 87186

== ENCOUNTER 2022-07-29 09:50 | Emergency (ER) | payer MEDICARE, OTHER ==
[~2022-07-29] VITALS: Ht 160 cm; Wt 81.7 kg
== END 2022-07-29 13:04 | disposition left against medical advice (07) ==
LOC: ER 09:50
DX: Z53.21 Procedure and treatment not carried out due to patient leaving prior to being seen by health care provider (principal)
CPT/HCPCS: 74018

== ENCOUNTER 2022-09-08 01:13 | Inpatient (IN) | payer MEDICARE, OTHER ==
[~2022-09-08] VITALS: Ht 162.6 cm; Wt 64.7 kg
[2022-09-08] VITALS (7 sets, daily range): BP systolic 123–156; BP diastolic 80–98
[~2022-09-08 01:13] MED LIST changes: +Colace100 MG PO; +Magnesium Citr296 ML PO; +Nitrofurantoin100 M1 PO; +ZOLOFT25 MG PO
[2022-09-08 02:17] LABS: BASOPHILS ABSOLUTE AUTO 0.03 K/mm3 (0.00-0.23); BASOPHILS PERCENT AUTO 1 % (0-2); EOSINOPHILS ABSOLUTE AUTO 0.09 K/mm3 (0.00-0.68); EOSINOPHILS PERCENT AUTO 2 % (0-6); Hematocrit 41.7 % (33.0-51.0); Hemoglobin 14.3 g/dL (11.5-16.0); IMMATURE GRAN ABSOLUTE AUTO 0.01 K/mm3 (0.00-0.10); IMMATURE GRAN PERCENT AUTO 0 % (0-1); LYMPHOCYTES PERCENT AUTO 32 % (21-46); MONOCYTES ABSOLUTE AUTO 0.42 K/mm3 (0.16-1.47); MONOCYTES PERCENT AUTO 10 % (4-13); Mean Corpuscular HGB 30.6 pg (26.0-34.0); Mean Corpuscular HGB Conc 34.3 g/dL (31.5-36.5); Mean Corpuscular Volume 89 fL (80-100); Mean Platelet Volume 10.3 fL (9.1-12.4); NEUTROPHILS ABSOLUTE AUTO 2.45 K/mm3 (1.96-9.15); NEUTROPHILS PERCENT AUTO 56 % (41-73); Platelet Count 270 K/mm3 (150-400); RDW Coefficient Variation 13.2 % (11.7-14.2); RDW Standard Deviation 43.3 fL (35.1-46.3); Red Blood Cell Count 4.67 M/mm3 (3.80-5.20)
[2022-09-08 02:29] LABS: Albumin, Blood 2.9 g/dL (3.4-5.0); Albumin/Globulin Ratio 0.8 (0.8-1.8); Bilirubin, Total 0.6 mg/dL (0.1-1.0); Bun/Creatinine Ratio 18.7 (12.0-20.0); Calcium, Blood 8.1 mg/dL (8.5-10.1); Creatinine, Blood 0.43 mg/dL (0.40-1.00); Globulin, Blood 3.5 g/dL (2.2-4.0); Magnesium, Blood 1.9 mg/dL (1.6-2.4); Potassium, Blood 4.1 mmol/L (3.5-5.5); Total Protein, Blood 6.4 g/dL (6.4-8.2)
--- NOTE | 2022-09-08 06:45 | NUR ---
ADMISSION PATIENT ARRIVED TO PCU FROM ER AROUND 0430. SLID OVER TO PCU BED WITH ASSISTANCE OF ER STAFF. ALERT AND ORIENTED, ABLE TO MAKE NEEDS KNOWN TO STAFF. PATIENT ARRIVED ON 2L NC, TITRATED TO 1L NC, SPO2 >95%. VITALS STABLE. PATIENT REPORTS SOME NAUSEA UPON ARRIVAL, MEDICATED PER EMAR. ATTENDS PLACED D/T PATIENT RECIEVING LASIX. 2ND IV PLACED TO L FOREARM. ANITBIOTICS INFUSING PER EMAR. NO CHANGES SINCE ADMISSION,.
--- NOTE | 2022-09-08 10:09 | NUR ---
ASSUMED CARE: ASSUMED CARE OF PT APPROX 0715. PT A&OX4 THIS AM. LETHARGIC IN BED. SBP 149. HR 95. PT DENIES CP/PRESSURE. SPO2>95% ON 1L VIA NC. PT REPORTS MILD SOB AT REST BUT REPORTS IMPROVEMENT. RR 20. SPOKE WITH MD NAJERA. MD HAYWARD WITH ORDERS TO DC NPO AND START ADA DIET. PT ABLE TO EAT BREAKFAST INDEPENDENTLY. CALL LIGHT WITHIN REACH. NO FURTHER NEEDS AT THIS TIME.
--- NOTE | 2022-09-08 17:41 | NUR ---
SHIFT SUMMARY: PT A&OX4. ABLE TO CALL APPROPRIATELY AND MAKE NEEDS KNOWN. SBP MOSTLY 130-150'S. HR NSR, 90'S-100'S. PT DENIES CP/PRESSURE. SPO2 >95% ON 1L O2 VIA NC. PT REPORTS SLIGHT SOB AT REST THAT INCREASES WITH EXERTION. O2 SATS STABLE ON 1L O2 WITH SOB. PT ABLE TO USE BSC WITH SBA. VOIDED YELLOW URINE. PT DENIES NAUSEA/VOMITING. NO BM'S THIS SHIFT. PT ABLE TO REPOSITION IN BED WITH MINIMAL ASSISTANCE FROM STAFF. IV ACCESS IN L FOREARM AND L HAND SALINE LOCKED. CALL LIGHT WITHIN REACH. NO FURTHER NEEDS AT THIS TIME.
[2022-09-08 19:12] LABS: Source, Urine Clean Catch
[2022-09-08 19:28] LABS: Bilirubin, Urine Neg (Neg); Blood, Urine Neg (Neg); Color, Urine Yellow (P-Yellow); Glucose Qualitative, Urine 3+ (Neg); Ketones, Urine Neg (Neg); Leukocyte Esterase, Urine Neg (Neg); Nitrite, Urine Neg (Neg); Protein, Urine 2+ (Neg); Specific Gravity, Urine 1.015 (1.003-1.022); Urobilinogen, Urine NORM (Normal)
[2022-09-08 19:41] LABS: Appearance, Urine Hazy (Clear)
[2022-09-08 19:43] LABS: Bacteria Mod /hpf; Red Blood Cells, Urine 0-2 /hpf (0-2); Squamous Epithelial Cells Few /hpf (Few)
[2022-09-08 19:44] LABS: Yeast/Fungi Urine Few /hpf
[2022-09-08 20:01] LABS: U Cannabinoids Screen DETECTED
[2022-09-08 20:02] LABS: U Amphetamine Screen DETECTED; U Barbituate Screen Not Detected; U Benzodiazapine Screen Not Detected; U Buprenorphine Screen Not Detected; U Cocaine Screen Not Detected; U Methadone Screen Not Detected; U Methamphetamine Screen DETECTED; U Opiates Screen Not Detected; U Oxycodone Screen Not Detected; U Phencyclidine Screen Not Detected; U Propoxyphene Screen Not Detected
[2022-09-09 03:50] LABS: BASOPHILS ABSOLUTE AUTO 0.04 K/mm3 (0.00-0.23); BASOPHILS PERCENT AUTO 1 % (0-2); EOSINOPHILS ABSOLUTE AUTO 0.12 K/mm3 (0.00-0.68); EOSINOPHILS PERCENT AUTO 3 % (0-6); Hemoglobin 14.6 g/dL (11.5-16.0); IMMATURE GRAN PERCENT AUTO 0 % (0-1); LYMPHOCYTES ABSOLUTE AUTO 1.45 K/mm3 (0.84-5.20); LYMPHOCYTES PERCENT AUTO 35 % (21-46); MONOCYTES ABSOLUTE AUTO 0.41 K/mm3 (0.16-1.47); MONOCYTES PERCENT AUTO 10 % (4-13); Mean Corpuscular HGB 30.6 pg (26.0-34.0); Mean Corpuscular Volume 90 fL (80-100); Mean Platelet Volume 9.9 fL (9.1-12.4); NEUTROPHILS ABSOLUTE AUTO 2.14 K/mm3 (1.96-9.15); NEUTROPHILS PERCENT AUTO 51 % (41-73); Platelet Count 268 K/mm3 (150-400); RDW Coefficient Variation 13.2 % (11.7-14.2); RDW Standard Deviation 43.8 fL (35.1-46.3); Red Blood Cell Count 4.77 M/mm3 (3.80-5.20); White Blood Cell Count 4.16 K/mm3 (4.00-11.30)
[2022-09-09 04:10] LABS: Albumin, Blood 2.6 g/dL (3.4-5.0); Anion Gap 3 mmol/L (6-16); Blood Urea Nitrogen 15 mg/dL (8-24); Bun/Creatinine Ratio 28.4 (12.0-20.0); CO2, Blood 31 mmol/L (21-32); Chloride, Blood 103 mmol/L (98-108); Creatinine, Blood 0.53 mg/dL (0.40-1.00); Glomerular Filtration Rate 100 (60-); Glucose, Blood 254 mg/dL (70-99); Phosphorus, Blood 3.9 mg/dL (2.5-4.9); Potassium, Blood 3.6 mmol/L (3.5-5.5); Sodium, Blood 137 mmol/L (136-145)
[2022-09-09 05:11] VITALS: BP 150/79
--- NOTE | 2022-09-09 05:51 | NUR ---
SHIFT SUMMARY ASSUMED CARE OF PT AT 1900. PT IS A/OX3-4. HEART SOUNDS REGULAR. LUNG SOUNDS HAVE CRACKES AT THE BASES. PT WORE 1L NC MOST OF THE NIGHT UNTIL AROUND [id number] WHEN SHE WOULD DESAT TO 83% WHILE DEEP SLEEPING. PT STATES SHE DOES NOT HAVE SLEEP APNEA. PT WORE 2L NC THE REST OF THE NOC. PT WAS A 1P ASSIST TO BSC. PT WAS ABLE TO SLEEP DURING THE NIGHT. PT HAD ONE EPISODE OF CP WHEN SHE GOT UP TO BSC. AFTER REST, PT STATES SHE DIDNT HAVE ANYMORE THE REST OF THE NIGHT.
--- NOTE | 2022-09-09 08:04 | NUR ---
Call from Kamari in [facility]; he will be up to start the resting portion of the stress test, and the stress portion will be done tomorrow. He was unable to accomodate request for a 1-day protocol stress test.
[2022-09-09 08:06] VITALS: BP 149/82
--- NOTE | 2022-09-09 08:26 | NUR ---
Sitting up in chair eating breakfast after injection done by Kamari. Imaging will be done around 0900.
[2022-09-09 11:11] VITALS: BP 118/71
--- NOTE | 2022-09-09 11:12 | NUR ---
Pt reported to the TODDLER GUIDE that she "can't breathe". I assessed the pt, who at the time was sittting on the side of the bed, with mild anxiety but no observable dyspnea. No wheezing noted. Pt has RR of 24/min, unlabored and even, and spo2 100% on 1 l/min of oxygen. heart rate is 73 bpm , normal sinus rhythm without any changes noted on telemetry. She is now lying in bed with HOB elevated at 50 degrees. States she is having chest tightness, intermittently drowsy and closing her eyes, and then saying that she can't breathe.
--- NOTE | 2022-09-09 11:33 | NUR ---
Call to Dr. Ramírez. New order received for IV morphine. Pt is sitting up in bed, no observable dyspnea noted. Informed of new orders. She is asking for more lemon spirit lake soda.
--- NOTE | 2022-09-09 12:01 | NUR ---
Pt's states that her breathing and chest tightness are getting better. She is sitting on the side of bed,eating lunch right now. Pleasantly conversant. 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
[2022-09-09 15:53] VITALS: BP 125/74
[2022-09-09 20:04] VITALS: BP 142/85
[2022-09-10] VITALS (8 sets, daily range): BP systolic 91–147; BP diastolic 64–94
--- NOTE | 2022-09-10 06:33 | NUR ---
Pt has been able to rest some overnight. Multiple episode of the Pt stating "I can't breathe." Each episode, VSS. IV MS seems to help the SOB. Pt has been given staff support and will eventually be able to calm herself. Daughter was updated on Pt status. Pt is able to make needs known, call light is within reach. Pt does call out frequently rather than using call light.
[2022-09-10 06:36] LABS: BASOPHILS ABSOLUTE AUTO 0.03 K/mm3 (0.00-0.23); BASOPHILS PERCENT AUTO 1 % (0-2); EOSINOPHILS ABSOLUTE AUTO 0.08 K/mm3 (0.00-0.68); EOSINOPHILS PERCENT AUTO 2 % (0-6); Hematocrit 44.5 % (33.0-51.0); Hemoglobin 15.2 g/dL (11.5-16.0); IMMATURE GRAN PERCENT AUTO 0 % (0-1); LYMPHOCYTES PERCENT AUTO 33 % (21-46); MONOCYTES PERCENT AUTO 11 % (4-13); Mean Corpuscular HGB 30.4 pg (26.0-34.0); Mean Corpuscular HGB Conc 34.2 g/dL (31.5-36.5); Mean Corpuscular Volume 89 fL (80-100); Mean Platelet Volume 9.5 fL (9.1-12.4); NEUTROPHILS ABSOLUTE AUTO 2.42 K/mm3 (1.96-9.15); NEUTROPHILS PERCENT AUTO 53 % (41-73); Platelet Count 262 K/mm3 (150-400); RDW Coefficient Variation 13.2 % (11.7-14.2); RDW Standard Deviation 43.5 fL (35.1-46.3); White Blood Cell Count 4.53 K/mm3 (4.00-11.30)
--- NOTE | 2022-09-10 07:17 | NUR ---
Pt is lying in bed, right side lying, without elevation of HOB. Room is dimly lit. When we come into the room, she states that she can't breathe. She is conversant without any noted dyspnea, accessory muscle use, nor orthopnea. Spo2 is 98%. Telemetry shows normal sinus rhythm at 83 bpm. She is NPO for the second portion of the stress test this morning.
[2022-09-10 07:24] LABS: Albumin, Blood 2.6 g/dL (3.4-5.0); Anion Gap 5 mmol/L (6-16); Blood Urea Nitrogen 18 mg/dL (8-24); Bun/Creatinine Ratio 42.1 (12.0-20.0); CO2, Blood 31 mmol/L (21-32); Chloride, Blood 101 mmol/L (98-108); Creatinine, Blood 0.43 mg/dL (0.40-1.00); Glomerular Filtration Rate 105 (60-); Glucose, Blood 254 mg/dL (70-99); Phosphorus, Blood 3.3 mg/dL (2.5-4.9); Potassium, Blood 3.8 mmol/L (3.5-5.5); Sodium, Blood 137 mmol/L (136-145)
--- NOTE | 2022-09-10 09:01 | NUR ---
PT LAYING ON RIGHT SIDE. PT STATES SOB. SPO2 100%. PT DID NOT WANT TO SIT UP IN BED AND SAID SHE FELT BETTER LAYING DOWN. BREATHING IS SYMETRICAL AND NOT LABORED. SECOND PORTION OF STRESS TEST BEING DONE THIS MORNING. PT ATE BREAKFAST WITHOUT ANY COMPLAINTS. RESTING COMFORTABLY IN BED. O2 DECREASED TO 1%.
--- NOTE | 2022-09-10 11:05 | NUR ---
BG 399. CONTACTED DR. HAYWARD TO NOTIFY OF BG >350. SHE ADJUSTED THE SLIDING SCALE. ALSO ASKED ABOUT MEDICATION FOR CP. SHE WILL PUT IN AN ORDER OF NITRO THE STRESS TEST IS COMPLETE.
--- NOTE | 2022-09-10 12:35 | NUR ---
PT states she is finished with lunch; requested back to bed from chair.
--- NOTE | 2022-09-10 13:12 | NUR ---
PT SITTING IN CHAIR AT BEDSIDE. O2 AT 98% WITH 1L NC. O2 DISCONTINUED AND NITRO ADMINISTERED FOR CP. PT STATES NO CHANGES IN CP OR SOB AT 5 MINUTES AND 15 MINUTES AFTER NITRO WAS GIVEN SL.
--- NOTE | 2022-09-10 13:25 | NUR ---
O2 RESTARTED AROUND 1230 AT 1L NC. SPO2 WAS 88% WHILE PATIENT WAS SLEEPING. SPO2 WAS THEN 93%.
--- NOTE | 2022-09-10 16:03 | NUR ---
Patient is lying in bed and laert. Patient is very anxious and moves around constantly stating that she is having SOB. She then explains that she has felt this way even since being admitted to the hospital. Once distracted from her breathing issues, she tells me abut her spouse and how he is disabled from COPD and from a fall that has injured his back and hip. She tells me that she has two grown children that live out of the area and are concerned about her. She seems to calm the restlessness down as she talks. She has two dogs that are her fur babies and she wants to get home to. I provide therapeutic listening, anxiety containment, and prayer. Patient responded well and showed signs of reduced stress and increased peace.
--- NOTE | 2022-09-10 18:27 | NUR ---
SHIFT SUMMARY A&OX4, SOB WITH CP/PRESSURE, 1 PERSON SBA. SOB AND CP NOT RELIEVED BY NITRO SL. PT STATES CP IS 5-6/10 AND CONSTANT AT REST, DOES NOT GET WORSE WITH MOVEMENT AND ACTIVITY. PLEASENTLY CONVERSANT WITH NO USE OF ACCESSORY MUSCLES. RR BETWEEN 17-20. PATIENT PREFERS TO LAY FLAT IN BED. STATES THAT SITTING UP AND TRIPOD POSTIONS DIDN'T HELP. NITRO PASTE STARTED AT 1515 AND STILL NO RELIEF. PT HAS BEEN SLEEPING IN BETWEEN MEALS AND CARE AND APPEARS TO BE COMFORTABLE IN BED. PT IS SCHEDULED FOR ANGIOGRAM 09/11 AND WILL BE NPO AFTER MIDNIGHT TONIGHT. INSULIN SLIDING SCALE HAS BEEN CHANGED TO MEDIUM RANGE.
[2022-09-11] VITALS (19 sets, daily range): BP systolic 91–132; BP diastolic 51–82
--- NOTE | 2022-09-11 06:00 | NUR ---
End of Shift Summary. Pt has rested well this shift. No episodes of SOB or CP. VSS. Pt has been min assist to the commode to void. Pt has been NPO since midnight. Pt is able to make needs known, call light is within reach.
--- NOTE | 2022-09-11 07:31 | NUR ---
PT COMFORTABLE IN BED. STATED NO CHEST PAIN. GOT UP TO THE BEDSIDE COMMODE WITH SOME ASSISTANCE. APPEARS AND STATES THAT SHE FEELS WEAK TODAY. O2 DECREASED FROM 3.5L TO 2L NC. O2 98%. DR. BUCIO CAME TO SEE PT AND LET HER KNOW THE PLAN FOR THE ANGIOGRAM TODAY.
--- NOTE | 2022-09-11 08:24 | NUR ---
DR. ERICKSON STOPPED IN TO TALK TO PT. VERIFIED ANGIOGRAM TODAY. CONSENT FORM SIGNED.
--- NOTE | 2022-09-11 11:23 | NUR ---
1040 Pt returned from the labor relations director. Groggy, drowsy, but able to carry on conversation appropriate and follow directions. TR band noted in place, and assessed at bedside with RN. No bleeding, bruising, swelling, and pt denies pain/numbness at arm and hand. Spo2 on the index finger of right hand is greater than 90% with good pleth reading. Vital signs are stable; sinus bradycardia 59 bpm noted by telemetry at bedside. 1050 Pt states that her left arm is "feeling funny" and she is unable to move it. Also says that her left arm, left leg and left side of face are numb. Only slight movement of her left leg noted. Pupils are equally round, with sluggish response. Symmetry of facial expressions, no droop noted. Soft palate rises symmetrically, and no lateral tongue deviation noted. Pt also noted to cough quite a bit after taking a drink of water. She will be kept NPO. Call to Dr. Ramírez to inform her of pt's current condition and labor relations director report. States to monitor the patient and that she will come to see her shortly.
--- NOTE | 2022-09-11 11:43 | NUR ---
Dr. Ramírez here; CT scan ordered
--- NOTE | 2022-09-11 12:42 | NUR ---
PT RESTING COMFORTABLY IN BED. SHE MOVED HER LEFT SHOULDER A LITTLE WHEN SHE MOVED SO I COULD ACCESS HER TR BAND. STILL NOT ABLE TO SQUEEZE LEFT HAND. 3CC REMOVED FROM TR BAND. NO BLEEDING, SWELLING, PAIN, OR NUMBNESS FELT IN RIGHT HAND. CAP REFILL <SEC.
--- NOTE | 2022-09-11 13:10 | NUR ---
2CC REMOVED FROM TR BAND. NO BLEEDING, PAIN, NUMBNESS, OR TINGLING NOTED. PT WAS ASKED TO SMILE AND OPEN EYES AGAIN. FACE APPEARS SYMMETRICAL AND ABLE TO OPEN BOTH EYES. STILL UNABLE TO SQUEEZE LEFT HAND AND STATES SHE CAN'T MOVE THE LEFT LEG.
--- NOTE | 2022-09-11 14:38 | NUR ---
4CC NOW REMOVED FROM TR BAND. 9 TOTAL. PT ABLE TO MOVE HER LEFT ARM AND HAND BUT WEAK. STATES CRAMPING IN HER LEFT CALF MUSCLE. SHE IS STILL DROWSY. HELPED REPOSITION HER AND IT WAS BETTER. SAYS FACIAL NUMBNESS IS GONE AND MOUT "DOESN'T FEEL FUNNY ANYMORE". ATTEMPTED A BEDSIDE SWALLOW TEST. SOFT PALLATE STILL RISES SYMMETRICALLY. BUT COUGHED AFTER TRYING TO SWALLOW 1TSP WATER.
--- NOTE | 2022-09-11 15:15 | NUR ---
Call to Dr. Ramírez to report pt's ongoing failure to pass nursing bedside swallow evaluation. New order for Speech therapy to evaluate the pt; however, therapist did not answer calls as she had left for the day. Plavix was held. Also held the nitro paste due to pt's hypotension during post angio recovery and the report that coronary arteries were clear. Dr. Ramírez also ordered the nitro to be dc'd.
--- NOTE | 2022-09-11 16:59 | NUR ---
TR BAND FULLY RECOVERED, REMOVED, CLEANED AND TEGEDERM PLACED OVER INSERTION. NO BLEEDING NOTED. PT STATES NO NUMBNESS, TINGLING, PAIN. PATIENT RESTING COMFORTABLY ON RIGHT SIDE. STATES THAT SHE "STILL FEELS FUNNY" BUT NO CP, SANDERS, SOB.
--- NOTE | 2022-09-11 18:35 | NUR ---
PT APPEARS AND FEELS WEAKER THAN YESTERDAY. WENT IN FOR AN ANGIO AT 9AM. CAME BACK TO THE ROOM AT 1040. AT 1050 PT STATES THAT HER LEFT ARM "FELT FUNNY" AND THAT SHE COULDN'T MOVE IT. SYMPTOMS PROGRESSED TO LEFT SIDED NUMBNESS, LEFT SIDED FACIAL DROOP, LEFT LEG NUMBNESS. CT DID NOT SHOW ANY BLEEDING. SHE COUGHED WHEN WATER WAS OFFERED SO WAS NPO. STARTED SHOWING MILD SIGNS OF IMPROVEMENT AT 1300 WHEN FACIAL DROOP WAS IMPROVED WELL LEFT SIDED FACIAL NUMBNESS. SOME MOVEMENT IN HER LEFT SHOULDER WAS SEEN. RETESTED BEDSIDE SWALLOW AT [address] DR. HAYWARD WAS THEN CALLED AND GIVEN REPORT OF CONDITION. TR BAND FULLY RECOVERED. BED SIDE SWALLOW TEST REPEATED AT 1800 AND SHE DID WELL. SMALL COUGH WITH FIRST SWALLOW OF WATER BUT NONE AFTER THE SECOND. ADMINISTERED MEDS WITH APPLE SAUCE WITH NO SIGNS OF COUGHING OR DISCOMFORT.
[2022-09-12] VITALS: BP 137/85
[2022-09-12 04:30] VITALS: BP 143/71
[2022-09-12 05:19] LABS: Anti-Xa UFH, PHA Monitoring <0.10 IU/mL; International Normalized Ratio 1.14; Prothrombin Time Results 11.9 Sec (9.7-11.5)
[2022-09-12 05:28] LABS: Bun/Creatinine Ratio 47.9 (12.0-20.0); Calcium, Blood 8.6 mg/dL (8.5-10.1); Creatinine, Blood 0.5 mg/dL (0.40-1.00); Potassium, Blood 3.6 mmol/L (3.5-5.5)
--- NOTE | 2022-09-12 07:26 | NUR ---
SHIFT SUMMARY PT LETHARGIC, OPENS EYES TO VERBAL STIMULI AND WHEN ASKED TO. PT FOLLOWS COMMANDS, ORIENTED X3. VSS T/O SHIFT. PT STILL HAS SOME LEFT SIDED WEAKNESS IN THE UPPER AND LOWER EXTREMITY. PT UNABLE TO SQUEEZE W/LUE BUT OCCASSIONALLY CAN LIFT OR MOVE IT. THEN AT TIMES LUE IS FLACCID. LLE WEAK, PT UNABLE TO PUSH AGAINST RESISTANCE. HOWEVER, SX HAVE NOT WORSENED OR EVOLVED. NO FACIAL DROOP; SPEECH SLURRED AT TIMES. PT DENIES PAIN, CP OR PRESSURE. DENIES SOB. CBG STABLE. PT NPO D/T POSSIBLE ASPIRATION PER DAYSHIFT, PT HAS ST EVAL ORDERED. 2100 LOPRESSOR HELD D/T LETHARGY. PT REPOSITIONED Q2 OR PRN. PUREWICK IN PLACE AND CHANGED THIS SHIFT. AROUND 0400; PT LLE NOTED TO BE DUSKY IN COLOR AND COLD TO THE TOUCH. DOPPLER DID SHOW A PULSE. RESIDENT NOTIFIED; RESIDENT IN AT BEDSIDE TO ASSESS EXTREMITY. ORDERS FOR STAT US. COMPLETED; NO ACUTE FINDINGS. RESIDENT NOTIFIED. PT ALSO COMPLAINING OF L HIP PAIN. MEDICATION PER EMAR W/RELIEF. WILL UPDATE ONCOMING RN
[2022-09-12 07:40] VITALS: BP 142/77
--- NOTE | 2022-09-12 09:16 | NUR ---
UPDATE SPEECH AT BEDSIDE THIS AM. PLAN FOR PT TO BE STRICT NPO. NO MEDS PO.
[2022-09-12 12:42] VITALS: BP 155/88
--- NOTE | 2022-09-12 14:13 | NUR ---
UPDATE HOSPITALIST AT BEDSIDE LATE MORNING. PLAN FOR PT TO HAVE MRI, DUPLEX SCAN OF CAROTID ARTERY, ORDERS FOR DOBHOFF TO BE PLACED FOR NUTRITION SUP. DOBHOFF PLACED, PT ELZA WELL. STAT X RAY ORDERED. MRI SCREENING FORM DONE WITH PT AND THIS RN. FAXED TO MRI. PT REPORTS NEW CP AT 1340. EKG DONE, NO CHANGES. MORPHINE GIVEN PER EMAR. PHYSICIAN CALLED TO NOTIFY OF NEW CHANGES. PT SLEEPING AT THIS TIME.
[2022-09-12 15:48] VITALS: BP 160/84
--- NOTE | 2022-09-12 19:09 | NUR ---
SHIFT SUMMARY PT ALERT AND ORIENTED X 4. HR STABLE. BP STABLE. NO CP OR PRESSURE. PT CONT TO HAVE L SIDE DEFICIT. FLACID ON L SIDE. MRI COMPLETED, CAROTID DUPLEX ULTRASOUND ORDERED AND COMPLETED. DOBHOFF ORDERED PER MD FOR NUTRITIONAL SUPPORT. PT ELZA PROCEDURE WELL. STAT XRAY ORDERED FOR PLACEMENT. PER RAD PROGRESS DOBHOFF 10 MORE CM. ONCE ADVANCED 10 CM TO 60 GUIDE WIRE REMOVED. PER MD OK TO USE DOBHOFF. ORDERED TO START GLUCERNA 1.2 AT 25 ML/HR. FLUSHES 30 ML Q 4 HRS. CONT THIS RATE UNTIL RE-ASSESSED. Q6 CBG'S. HOB ELEVATED OVER 30 DEGREES. PT'S FAMILY AT BEDSIDE T/O SHIFT. PT TURNED Q2 HRS AND NEEDED FOR COMFORT. OXYGEN SATURATION MAINTAINED ABOVE 92% ON RA. DEPENDS IN PLACE FOR INCONTINENCE. REPORT GIVEN TO VIJAY COCHRAN.
[2022-09-12 20:00] VITALS: BP 147/64
[2022-09-13 00:07] VITALS: BP 154/69
[2022-09-13 04:11] LABS: BASOPHILS ABSOLUTE AUTO 0.03 K/mm3 (0.00-0.23); BASOPHILS PERCENT AUTO 1 % (0-2); EOSINOPHILS PERCENT AUTO 2 % (0-6); Hematocrit 45.8 % (33.0-51.0); Hemoglobin 15.3 g/dL (11.5-16.0); IMMATURE GRAN ABSOLUTE AUTO 0.01 K/mm3 (0.00-0.10); IMMATURE GRAN PERCENT AUTO 0 % (0-1); LYMPHOCYTES ABSOLUTE AUTO 1.48 K/mm3 (0.84-5.20); LYMPHOCYTES PERCENT AUTO 35 % (21-46); MONOCYTES ABSOLUTE AUTO 0.48 K/mm3 (0.16-1.47); MONOCYTES PERCENT AUTO 11 % (4-13); Mean Corpuscular HGB 30.4 pg (26.0-34.0); Mean Corpuscular HGB Conc 33.4 g/dL (31.5-36.5); Mean Corpuscular Volume 91 fL (80-100); Mean Platelet Volume 9.6 fL (9.1-12.4); NEUTROPHILS ABSOLUTE AUTO 2.13 K/mm3 (1.96-9.15); NEUTROPHILS PERCENT AUTO 50 % (41-73); Platelet Count 259 K/mm3 (150-400); RDW Coefficient Variation 13.2 % (11.7-14.2); RDW Standard Deviation 44.5 fL (35.1-46.3); Red Blood Cell Count 5.03 M/mm3 (3.80-5.20); White Blood Cell Count 4.23 K/mm3 (4.00-11.30)
[2022-09-13 04:30] VITALS: BP 144/58
[2022-09-13 04:32] LABS: Albumin, Blood 2.7 g/dL (3.4-5.0); Albumin/Globulin Ratio 0.8 (0.8-1.8); Bilirubin, Total 0.7 mg/dL (0.1-1.0); Bun/Creatinine Ratio 48.7 (12.0-20.0); Calcium, Blood 8.7 mg/dL (8.5-10.1); Creatinine, Blood 0.55 mg/dL (0.40-1.00); Globulin, Blood 3.4 g/dL (2.2-4.0); Magnesium, Blood 2.1 mg/dL (1.6-2.4); Phosphorus, Blood 4.6 mg/dL (2.5-4.9); Total Protein, Blood 6.1 g/dL (6.4-8.2)
--- NOTE | 2022-09-13 06:51 | NUR ---
SHIFT SUMMARY PT A&O X3; SPEECH STILL SLURRED SOME BUT PT IS ABLE TO INTERACT AND RESPONDS TO QUESTIONS APPROPRIATELY. VSS THROUGHOUT SHIFT. NO ACUTE CHANGES. NO PROGRESSION OF SX; PT STILL REPORTS NUMBNESS ON L SIDE AND L FACE. L SIDE STILL FLACCID AND PT UNABLE TO USE. PT REPOSITIONED AND ATTENDS CHANGED Q2 OR PRN. CBG STABLE. TF RUNNING AT 25 MLS/HR. PT SEEMS TO BE TOLERATING THIS WELL. PT CONTINUES TO ASK FOR FOOD AND DRINKS, THIS RN REMINDED AND EDUCATED PT ON REASONS FOR BEING NPO. ORAL CARE COMPLETED Q4. PT STILL REPORTING SOME PAIN IN L HIP. MEDICATED PER EMAR X1. REPOSITIONING, HEAT AND UNINTERRUPTED REST ALSO SEEMS TO HELP ALLIEVATE PAIN. PT CURRENTLY ASLEEP IN ROOM. WILL UPDATE ONCOMING RN.
[2022-09-13 08:11] VITALS: BP 138/67
[2022-09-13 12:56] VITALS: BP 120/64
--- NOTE | 2022-09-13 14:16 | NUR ---
UPDATE HOSPITALIST AT BEDSIDE. PLAN FOR NEUROLOGY TO CONSULT PER MD. PLAN TO CONT TF AT 25 ML/HR UNTIL DIETARY ABLE TO CONSULT TOMORROW. VS REMAIN STABLE. WILL CONT TO MONITOR.
[2022-09-13 16:47] VITALS: BP 136/74
--- NOTE | 2022-09-13 18:29 | NUR ---
SHIFT SUMMARY PT ALERT AND ORIENTED X 4. HR STABLE. BP STABLE. OXYGEN SATURATION MAINTAINED ABOVE 95% ON 1-2 L VIA NC. PT REPORTS OCC CP WITH INSPIRATION. MD AWARE. MEDICATED PER EMAR. PT REPORTS PAIN TO HIP, BACK AND NECK. MEDICATED PER EMAR. NEUROLOGY CONSULTED AND UPDATED ON PT STATUS. DR. ABDI IN ROOM FOR CONSULT THIS EVENING. HEPARIN GTT DC'D PER HOSPIALIST. TF RUNNING AT 25 ML/HR. ELZA WELL. Q 6CBG'S DONE. PT RESTING ON AND OFF TODAY. DAUGHTER CALLED FOR UPDATE THIS AM. FAMILY AT BEDSIDE T/O SHIFT. PT YELLS OUT WHEN IN NEED OF ASSISTANCE. DOES NOT USE CALL LIGHT. BED IN LOWEST POSITION. PT INCONTINENT OF URINE. PT TURNED Q 2 HRS AND NEEDED FOR COMFORT. CALL LIGHT WITHIN REACH. WILL CONT TO MONITOR UNTIL REPORT GIVEN TO DAYSPARMINDER RN.
[2022-09-13 20:00] VITALS: BP 129/71
[2022-09-14] VITALS: BP 105/57
[2022-09-14 03:43] VITALS: BP 118/63
[2022-09-14 04:13] LABS: Hematocrit 42.9 % (33.0-51.0); Hemoglobin 14.5 g/dL (11.5-16.0); Mean Corpuscular HGB 30.5 pg (26.0-34.0); Mean Corpuscular HGB Conc 33.8 g/dL (31.5-36.5); Mean Corpuscular Volume 90 fL (80-100); Platelet Count 259 K/mm3 (150-400); RDW Coefficient Variation 13.2 % (11.7-14.2); RDW Standard Deviation 44.4 fL (35.1-46.3); Red Blood Cell Count 4.75 M/mm3 (3.80-5.20); White Blood Cell Count 4.24 K/mm3 (4.00-11.30)
[2022-09-14 04:31] LABS: Albumin, Blood 2.7 g/dL (3.4-5.0); Anion Gap 5 mmol/L (6-16); Blood Urea Nitrogen 27 mg/dL (8-24); Bun/Creatinine Ratio 48.7 (12.0-20.0); CHOL/HDL RATIO 3.7; CO2, Blood 33 mmol/L (21-32); Calcium, Blood 8.6 mg/dL (8.5-10.1); Chloride, Blood 101 mmol/L (98-108); Cholesterol 140 mg/dL (50-200); Creatinine, Blood 0.55 mg/dL (0.40-1.00); Glomerular Filtration Rate 99 (60-); Glucose, Blood 164 mg/dL (70-99); HDL Cholesterol 38 mg/dL (>39); LDL/HDL RATIO 1.8; Low Density Lipoprotein Chol 70 mg/dL (0-110); Phosphorus, Blood 4.1 mg/dL (2.5-4.9); Potassium, Blood 4.1 mmol/L (3.5-5.5); Sodium, Blood 139 mmol/L (136-145); Triglycerides 161 mg/dL (30-160); Very Low Density Lipoprot Chol 32 mg/dL (6-32)
--- NOTE | 2022-09-14 06:34 | NUR ---
SHIFT SUMMARY PT REMAINS A&O X3. PT INTERACTIVE AND RESPONDING TO QUESTIONS APPROPRIATELY. NO CHANGES IN NEURO. PT DENIES CP OR PRESSURE. BUT DOES REPORT ALOT OF GENERAL PAIN IN HER BACK, NECK AND HIP/LEG. MEDICATION PER EMAR W/SOME RELIEF. PT REPOSITIONED AND ATTENDS CHANGED Q2 OR PRN. PT NOT USING HER CALL LIGHT EVEN WITH REMINDERS AND DEMONSTRATION. PT VERBALLY CALLING OUT OFTEN STATES SHE "IS HUNGRY" OR NEEDS TO BE TURNED. PT ABLE TO VERBALIZE WHEN SHE HAS VOIDED. NO ACUTE CHANGES THIS SHIFT. TF RUNNING AT 25 MLS/HR, PT TOLERATING WELL. IMAGING IN TO TRANSPORT PT THIS AM FOR FOLLOW UP CT. CBG'S IN 160'S. PT CURRENTLY RESTING. WILL UPDATE ONCOMING RN
[2022-09-14 07:52] VITALS: BP 122/64
--- NOTE | 2022-09-14 11:53 | NUR ---
AM NOTE/TRANSFER: PT HAS BEEN ALERT, ORIENTED x3, COOPERATIVE W/CARE, ANSWERING QUESTIONS APPROPRIATELY. SLIGHT L FACIAL DROOP AND L SIDE DEFICIT NOTED. PT REPOSITIONED Q2H OR REQUESTED, TOLERATING WELL. O2 SATS >93% ON RA. SB/SR ON MONITOR W/RATE MOSTLY IN 60s, PT DENIES CP. SPEECH EVALUATION PERFORMED THIS MORNING AT BEDSIDE, PT ADVANCED TO [facility] SOFT DIET, TOLERATED BREAKFAST WELL. DOBHOFF REMOVED APPROX 1115 WNL, PT TOLERATED WELL. PT HAS RECEIVED NEW ROOM ASSIGNMENT IN MEDICAL DEPT, WILL TRANSFER ONCE REPORT HAS BEEN GIVEN.
--- NOTE | 2022-09-14 14:48 | NUR ---
PT ARRIVED TO ROOM AT 1335 VIA BED. PT IS AO AND COPPERATIVE OF CARE AT THIS TIME. CALL LIGHT IS WITHIN REACH AND PAIN HAS BEEN TREATED PER EMAR.BED ALARM IS IN PLACE. REPORT WAS GIVEN PRIOR TO PT'S ARRIVAL. WILL CONTINUE TO MONITOR.
[2022-09-14 15:08] VITALS: BP 130/68
--- NOTE | 2022-09-14 16:42 | NUR ---
NO ACUTE CHANGES. PT AOX3 AND COOPERATIVE OF ALL CARE. PT DOES NOT USE CALL LIGHT, BUT MAKES HER NEEDS KNOWN. PT IS INCONTENT AND WILL STATE IF SHE NEEDS CHANGED. BED ALARM IS IN PLACE WILL CONTINUE TO MONITOR.
[2022-09-14 20:55] VITALS: BP 124/58
--- NOTE | 2022-09-15 04:23 | NUR ---
MANAGER UNION SUMMARY NO ACUTE EVENTS THROUGHOUT THE NIGHT. A&OX4. PATIENT EFFECTIVELY COMMUNICATES NEEDS. SLURRED SPEECH NOTED DUE TO MEDICAL HISTORY OF CVA. RR EVEN AND UNLABORED ON RA. SPO2 >92%. VSS. PAIN ASSESSED AND MEDICATED PER EMAR. PATIENT FREQUENTLY REPOSITIONINED. PATIENT NOTED TO SLEEP THROUGHOUT THE NIGHT WITH MINIMAL CONCERNS, BUT DOES TEND TO CALL OUT IN LIEU OF USING CALL LIGHT. BED ALARM ON FOR SAFELY. BED LOW AND LOCKED. CALL LIGHT REMAINS IN REACH. RN STATIONED AT NEAR PATIENT'S ROOM. THIS RN WILL CONTINUE TO MONITOR.
[2022-09-15 06:16] VITALS: BP 117/60
[2022-09-15 07:58] VITALS: BP 125/63
--- NOTE | 2022-09-15 15:05 | NUR ---
Patient is lying in bed and alert. She has her SO Bill bedside. She immediately tells me that since my last visit she has had a stroke while in the hospital and that she is very depressed about it. Gian also texplains about his struggles as they have been together for 28 yrs and being away from her is horrible for him. He says that hospitals can feel very lonely and so he wants to be at the hospital more. Patient is in spiritual distress and admits to having her cate shaken. "I have gone wagner high, high, high to low, low, low. We explore ways to regain cate and hope. I provide therapeutic listening, theological insights and prayer. Patient and Gian respond well and are tearful at the prayer stating that it was very meaningful.
--- NOTE | 2022-09-15 18:20 | NUR ---
SHIFT SUMMARY PT AWAKE DURING REPORT THIS AM. ADMITTED FOR CHF EXAC WITH HX OF CVA; L SIDE DEFICITS NOTED. L ARM FLACCID, L LEG WITH SLIGHT CONTRACTURE, AND L FACIAL DROOP. PT CALLING OUT FREQUENTLY TO BE REPOSITIONED; EVERY FEW SECONDS TO A FEW MINUTES. PT MEDICATED THRU OUT THE DAY FOR C/O L HIP PAIN. MEDS GIVEN WHOLE IN APPLESAUCE, TOLERATING WELL. PT ASSISTED WITH EATING MEALS SHE STATED THAT SHE IS L HANDED AND NOW FLACCID IN L ARM. CBG'S AND INSULIN ADJUSTED TODAY. DR FUENTES IN TO SEE PT AND DISCUSS PLAN OF CARE. PT ABLE TO WORK WITH THERAPY WELL DOING EXERCISES IN BED AND UP TO EOB. INCONTINENT OF URINE. REDNESS AND SLIGHT SWELLING TO BOTH FEET. MULTIPLE FAMILY IN TO VISIT DURING THE DAY. PT MOVED TO 353 AT 1800 D/T FREQUENT YELLING OUT. REPORT GIVEN TO OLIVA LINARES.
--- NOTE | 2022-09-15 18:22 | NUR ---
RN RECEIVED BEDSIDE REPORT FROM DENNIS LINARES AFTER TRANSFER. PT IN STABLE CONDITION WITH NO COMPLAINTS. PT ARRIVED WITH ALL BELONGINGS.
[2022-09-15 19:46] VITALS: BP 101/45
[2022-09-16 03:53] VITALS: BP 125/50
[2022-09-16 07:37] VITALS: BP 118/51
[2022-09-16 08:25] LABS: Albumin, Blood 2.6 g/dL (3.4-5.0); Anion Gap 3 mmol/L (6-16); Blood Urea Nitrogen 23 mg/dL (8-24); Bun/Creatinine Ratio 45.6 (12.0-20.0); CO2, Blood 32 mmol/L (21-32); Calcium, Blood 8.8 mg/dL (8.5-10.1); Chloride, Blood 102 mmol/L (98-108); Glomerular Filtration Rate 101 (60-); Glucose, Blood 261 mg/dL (70-99); Phosphorus, Blood 3.3 mg/dL (2.5-4.9); Potassium, Blood 4.2 mmol/L (3.5-5.5); Sodium, Blood 137 mmol/L (136-145)
[2022-09-16 15:39] VITALS: BP 142/71
--- NOTE | 2022-09-16 17:19 | NUR ---
NOTE PT ALERT. SHE WAS SCREAMING THISMORNING. TALKED WITH HER ABOUT USING HER CALL LIGHT. SHE HAS NOT SCREAMED SINCE. CALL LIGHT USE APPROPRIATE. SHE HAS BEEN INTERACTING WITH STAFF. SHE IS SMILING AND MAKING JOKES THIS EVENING. SHE IS HUNGRY AND ASKING FOR GRAM CRACKERS. MEDICATED FOR CHRONIC PAIN REQUESTED. SPOUCE HERE SEVERAL TIMES. HE IS STATING HE CAN;T CARE FOR HER ANYMORE. CONTINUE POC.
[2022-09-16 19:55] VITALS: BP 125/62
[2022-09-16 23:30] VITALS: BP 100/87
--- NOTE | 2022-09-17 00:38 | NUR ---
RIGHT BEFORE MIDNIGHT, PT STARTED TO COMPLAIN OF CHEST PAIN/PRESSURE. RATED 5/10. WHEN ASKED TO SPECIFY WHERE PAIN IS LOCATED POINTED TOWARDS CENTER OF CHEST. NOTED THAT "IT FEELS LIKE IT IS MOVING INTO BACK OF THROAT". INCLINED BED. NO NOTED HX OF GERD IN CHART ALTHOUGH PT STATES SHE DOES OCCASIONALLY DEAL WITH ACID REFLUX. VITALS WNL OUTSIDE OF LOW BP. TELE WAS RUNNING NSR AT THE TIME. AUSCULTATION UNCHANGED FROM PREVIOUS ASSESSMENT. CALLED TO NOTIFY HOSPITALIST. ORDERED 2 TROPONINS 2 HOURS APART AND AN EKG. EKG PERFORMED. TROPONIN LAB ACQUIRED. REVIEWED EKG PRINT OUT WITH JUAN LUIS GIL RN. NO SIGNIFICANT DIFFERENCES FROM PREVIOUS EKG ON 09/13. AFTER A WHILE PT NOTED SENSATION REMAINS UNCHANGED BUT SHE IS ABLE TO REST MOSTLY COMFORTABLY IN BED. ADMINISTERED PRN TRAMADOL FOR PAIN. DISCUSSED WITH SIMÓN KLINE RN. NO NEED TO CALL BACK HOSPITALIST IF THERE IS NO SIGNIFICANT DIFFERENCE FROM PREVIOUS EKG HE IS FORWARDED COPY. WILL CONTINUE TO MONITOR AND REVIEW RESULTS FROM TROPONIN LABS.
[2022-09-17 02:17] LABS: Albumin, Blood 2.6 g/dL (3.4-5.0); Anion Gap 4 mmol/L (6-16); Blood Urea Nitrogen 28 mg/dL (8-24); Bun/Creatinine Ratio 48.8 (12.0-20.0); CO2, Blood 34 mmol/L (21-32); Calcium, Blood 8.5 mg/dL (8.5-10.1); Chloride, Blood 101 mmol/L (98-108); Creatinine, Blood 0.57 mg/dL (0.40-1.00); Glomerular Filtration Rate 98 (60-); Glucose, Blood 220 mg/dL (70-99); Phosphorus, Blood 3.4 mg/dL (2.5-4.9); Potassium, Blood 4.2 mmol/L (3.5-5.5); Sodium, Blood 139 mmol/L (136-145)
[2022-09-17 03:55] VITALS: BP 117/61
--- NOTE | 2022-09-17 04:08 | NUR ---
SHIFT HAS BEEN UNREMARKABLE OUTSIDE OF ONE EVENT EARLY THIS MORNING CONCERNING COMPLAINTS OF CHEST PAIN/PRESSURE. SEE RELATED NOTES FOR DETAILS REGARDING THIS EVENT. SINCE THAT TIME, PT HAS BEEN ABLE TO SLEEP FOR LONG STRETCHES IN BED. RELAXING COMFORTABLY. AWAKES SPORADICALLY FOR REPOSITIONING, FLUIDS, ETC. USUALLY ABLE TO GET COMFORTABLE AGAIN AND RETURN TO SLEEP. WHEN PROMPTED, PT NOTES THE CHEST PRESSURE FEELS ABOUT THE SAME BUT THAT IT IS NOT PREVENTING HER FROM RESTING/SLEEPING. HIP PAIN APPEARS TO BE WELL MANAGED VIA REPOSITIONING AND MEDICATION REGIMEN. AOX4 THROUGHOUT SHIFT. PLEASANT, COOPERATIVE WITH CARE BUT DOES NOT USE CALL LIGHT APPROPRIATELY DESPITE REPEAT PROMPTING. TYPICALLY INCLINED TO SHOUT INTO [place] FOR HELP. BED LOCKED IN LOWEST POSITION. CALL LIGHT LEFT WITHIN REACH.
[2022-09-17 07:25] VITALS: BP 116/66
[2022-09-17 15:12] VITALS: BP 115/59
[2022-09-17 20:01] VITALS: BP 117/55
[2022-09-18 02:41] VITALS: BP 152/74
[2022-09-18 07:56] VITALS: BP 111/68
[2022-09-18 08:17] LABS: Albumin, Blood 2.5 g/dL (3.4-5.0); Anion Gap 2 mmol/L (6-16); Blood Urea Nitrogen 24 mg/dL (8-24); Bun/Creatinine Ratio 43.6 (12.0-20.0); CO2, Blood 31 mmol/L (21-32); Calcium, Blood 8.3 mg/dL (8.5-10.1); Chloride, Blood 103 mmol/L (98-108); Creatinine, Blood 0.55 mg/dL (0.40-1.00); Glomerular Filtration Rate 99 (60-); Glucose, Blood 259 mg/dL (70-99); Phosphorus, Blood 3.6 mg/dL (2.5-4.9); Potassium, Blood 4.6 mmol/L (3.5-5.5); Sodium, Blood 136 mmol/L (136-145)
--- NOTE | 2022-09-18 12:30 | NUR ---
MD CALL PT HAS C/O LEFT HIP PAIN THIS AM. GIVEN ULTRAM AND TYLENOL WITH NONE OR VERY LITTLE RESPONSE. LEFT FOOT SWOLLEN AND TENDER. BLOOD SUGARS ELEVATED ON MECH SOFT NON ADA DIET. DR FUENTES CALLED AND NOTIFIED. DIET ORDER CHANGED TO ADA MECH SOFT. DR FUENTES WILL REVIEW PAIN MEDICATIONS.
[2022-09-18 15:35] VITALS: BP 115/47
--- NOTE | 2022-09-18 18:07 | NUR ---
SHIFT SUMMARY MS QIU HAS C/O LEFT HIP PAIN TODAY. SHE SAID THE HIP PAIN IS BONE ON BONE AND THAT IT HAS BEEN WORSE SINCE SHE'S BEEN IN THE HOSPITAL. SHE SAID 5/10 IS HER TOLERABLE LEVEL AND PAIN IS DOWN TO 5/10 NOW AFTER INCREASED ULTRAM DOSE. R LEG CONTRACTED. LEFT LEG WITH MINIMAL MOVEMENT OF TOES, FOOT SWOLLEN AND TENDER. LEFT ARM FLACID. PT INCONTINENT TO DEPENDS, SHE SAID SHE CAN NOT FEEL WHEN SHE NEEDS TO VOID. SHE SAID SHE HAS NOT HAD A BM AND FEELS CONSTIPATED, GIVEN PRN MEDS AND +FLATUS, NO BM TODAY. BLOOD GLUCOSE ELEVATED. BED LOW, CALL LIGHT IN REACH.
[2022-09-18 20:37] VITALS: BP 115/56
[2022-09-19 02:48] VITALS: BP 112/60
[2022-09-19 07:40] VITALS: BP 111/57
--- NOTE | 2022-09-19 10:33 | NUR ---
RN NOTE MS QIU CONTINUES TO C/O LEFT HIP PAIN, ALSO LEFT SHOULDER AND NECK PAIN. LEFT FOOT SWOLLEN AND TENDER, NO BOWEL MOVEMENT. DR FUENTES TO BEDSIDE. SHE IS ORDERING AN ULTRASOUND OF LLE, THEN SAID TO PLACE LISBET HOSE ON LEFT LEG. MIRILAX ORDER PLACED PER VERBAL ORDER. BLOOD SUGARS STILL HIGH, LANTUS ONE TIME ORDER PLACED IN [employer], SUPPLIMENT WITH MEALS CHANGED TO GLUCERNA PER DR FUENTES. PT TURNED FREQUENTLY.
[2022-09-19 15:52] VITALS: BP 133/54
[2022-09-19 16:59] VITALS: BP 116/50
[2022-09-19 17:00] VITALS: BP 120/52
--- NOTE | 2022-09-19 17:17 | NUR ---
SHIFT SUMMARY/MD CALL MS QIU C/O FEELING GENERALLY UNWELL, FATIGUED, WARM, DIAPHURETIC. VSS. BLOOD GLUCOSE 80, PT SAID THIS IS VERY LOW FOR HER. GIVEN 120ML APPLE JUICE TO TREAT SYMPTOMS. DR FUENTES CALLED AND NOTIFIED. TELEPHONE ORDER TO HOLD HUMALOG INSULIN FOR THE REST OF THE DAY. MAY GIVE LANTUS INSULIN THIS EVENING IF BLOOD GLUCOSE IS 200 OR GREATER, OTHERWISE HOLD. PT SAID SHE IS FEELING A LITTLE BIT BETTER AFTER THE APPLE JUICE "STILL A BIT STRANGE". SHE STILL C/O PAIN BUT COMPLAINTS HAVE BEEN LESS FREQUENT TODAY. SHE STILL DESCRIBES LEFT HIP PAIN /. US DONE LLE, LISBET HOSE APPLIED AFTER US. NO BM TODAY DESPITE MEDICATIONS TAKEN. BED LOW, CALL LIGHT IN REACH.
[2022-09-19 19:36] VITALS: BP 102/56
[2022-09-20 02:55] VITALS: BP 110/45
[2022-09-20 06:16] LABS: Albumin, Blood 2.6 g/dL (3.4-5.0); Anion Gap 4 mmol/L (6-16); Blood Urea Nitrogen 29 mg/dL (8-24); Bun/Creatinine Ratio 37.2 (12.0-20.0); CO2, Blood 34 mmol/L (21-32); Calcium, Blood 8.7 mg/dL (8.5-10.1); Chloride, Blood 100 mmol/L (98-108); Creatinine, Blood 0.78 mg/dL (0.40-1.00); Glomerular Filtration Rate 82 (60-); Glucose, Blood 151 mg/dL (70-99); Phosphorus, Blood 4.5 mg/dL (2.5-4.9); Potassium, Blood 4.5 mmol/L (3.5-5.5); Sodium, Blood 138 mmol/L (136-145)
[2022-09-20 07:43] VITALS: BP 107/51
--- NOTE | 2022-09-20 15:28 | NUR ---
SHIFT SUMMARY MS UYEN BLACKWELL HAS BEEN DISTURBED BY NOISES FROM OTHER AREAS OUTSIDE OF HER ROOM. DISCUSSED ROOM CHANGE WITH CHARGER OPERATOR HELPER. NO CHANGE IN PAIN STATUS, THOUGH PAIN DOES SEEM TO BE A BIT BETTER CONTROLLED ON THE INCREASED TRAMADOL BASED ON ASSESSMENT. BLOOD GLUCOSE 88 BEFORE LUNCH, DR FUENTES NOTIFIED AND HUMALOG HELD AT LUNCH TIME. DAUGHTER JIMMIE CALLED TO MEDICAL UNIT AND UPDATED WITH PT PERMISSION. BED LOW, CALL LIGHT IN REACH.
[2022-09-20 15:40] VITALS: BP 113/58
--- NOTE | 2022-09-20 16:13 | NUR ---
PT MOVED TO ROOM 358. REPORT TO ANA PAULA CHILDERS RN
--- NOTE | 2022-09-20 18:35 | NUR ---
SHIFT SUMMARY THIS NURSE ASSUMED CARE OF THE PT AT 1600. PT A&OX4 AND COOPERATIVE OF CARE. PT APPEARED FRUSTRATED IN AFTERNOON STATING SHE "WANTED TO KNOW WHAT WAS GOING ON WITH HER LIFE". EXPLAINED TO PT THAT THE PLAN WAS FINDING A SNIF PLACEMENT SO THAT SHE COULD CONTINUE TO RECOVER. PT STILL APPEARED AGGITATED. PT ATE MOST OF DINNER. PT RESTING NOW AND VERBILZED WANTING TO SLEEP AND NOT BE BOTHERED BY ANYONE ELSE. HELPED PT TO REPOSITION, CLOSED BLINDS SO PT COULD REST. BED IN LOWEST POSITION AND CALL LIGHT IN REACH.
[2022-09-20 19:31] VITALS: BP 114/57
[2022-09-21 02:01] VITALS: BP 131/64
--- NOTE | 2022-09-21 04:10 | NUR ---
PER THE PATIENT, NO BM SINCE ADMISSION, AND NO DOCUMENTATION FOUND IN CHART INCLUDING FREE TYPE NOTES. BS IN ALL FOUR, NEW BC MEDS ORDERED AND ADMINISTERED, RESULTING IN PAINFUL PRESSURE, BUT NO BM. DIGITAL DISIMPACTION USED TO PRODUCE SMALL FORMED/MORRO LIKE BM PRODUCED. PRESSURE AND PAIN HAS DECREASED. MAY TRY ASSISTING PATIENT INTO THE SEATED POSITION ON CAMODE IF STAFF ALLOWS AND PATIENT REQUESTS GRAVITY ASSISTANCE. WILL CONTINUE TO MONITOR.
[2022-09-21 06:32] LABS: Albumin, Blood 2.5 g/dL (3.4-5.0); Anion Gap 2 mmol/L (6-16); Blood Urea Nitrogen 29 mg/dL (8-24); Bun/Creatinine Ratio 45.5 (12.0-20.0); CO2, Blood 33 mmol/L (21-32); Calcium, Blood 8.5 mg/dL (8.5-10.1); Chloride, Blood 101 mmol/L (98-108); Creatinine, Blood 0.64 mg/dL (0.40-1.00); Glomerular Filtration Rate 96 (60-); Glucose, Blood 105 mg/dL (70-99); Phosphorus, Blood 3.8 mg/dL (2.5-4.9); Potassium, Blood 4.2 mmol/L (3.5-5.5); Sodium, Blood 136 mmol/L (136-145)
--- NOTE | 2022-09-21 06:43 | NUR ---
SHIFT SUMMARY: A&O X 3, CALLS OUT TO MAKE NEEDS KNOWN. COMPLAINT THIS EVENING OF PAIN AND DISCOMFORT IN LOWER BACK. NO COMPLAINTS OF CHEST PAIN OR DISCOMFORT. PROVIDED TRAMADOL 100MG 1 TIME WHICH WAS HELPFUL AND TYLENOL 650MG 1 TIME. SHE DID VERBALIZE THAT SHE HAD NOT HAVE A BM IN A FEW DAYS AND WAS IN AGREEMENT FOR BOWEL CARE. CALL TO PHYSICIAN AND RECEIVED BOWEL CARE ORDERS. SHE DID RECEIVE DOCUSATE, MOM, POLYETHELENE GLYCOL AND A DULCOLAX SUPPOSITORY WHICH WAS EFFECTIVE. SHE ALSO RECEIVED PRUNE JUICE, COFFEE AND MELTED BUTTER WHICH WAS EFFECTIVE. SHE IS CONTINENT OF URINE ON THE COMMODE, 2 MAX ASSIST WITH GATE BELT. SHE IS ABLE TO TAKE PILLS WHOLE WITH APPLE SAUCE AND HAS NO DIFFICULTY SWALLOWING.
[2022-09-21 08:21] VITALS: BP 110/53
--- NOTE | 2022-09-21 08:54 | NUR ---
pt laying in bed, awake, a/ox3, pleasant and coopertive with care, follows commands well, denies pain at this time, lungs are clear in upper [place], a bit course in bases, resp even and unlabored, no cough noted, hrr, distant sound, 2+ edema noted to b/l le, ppp+1, cap refill <3sec, vs stable, afebrile, piv to rfa site is clear and patent, btx4, hypoactive, abd soft, nontender, voids without diff, has briefs in place, can get to bsc with max assist, left side is flacid, is swallowing well, and feeding herself, coccyx is pink, and a pink area in umbilicus, kimi, call light in reach.
[2022-09-21 11:32] VITALS: BP 117/71
--- NOTE | 2022-09-21 12:12 | NUR ---
pt sat in the chair for about an hr after OT got her up, she complained of chest pain, states he back hurts as well, and feels like her chest is filling up with air, was notified, recieved order for cxr, this was done, not read yet, pt placed back in bed, is asleep at this time. call light in reach.
[2022-09-21 18:31] VITALS: BP 142/82
--- NOTE | 2022-09-21 19:34 | NUR ---
pt has been up to the chair for a short time this afternoon, complains of her bottom hurting while in bed especially if sitting up for meals, placed a preventative mepilex and egg crate on bed for comfort, medicated as ordered, turned frequently, no further changes this shift. call light in reach.
[2022-09-21 19:42] VITALS: BP 116/44
[2022-09-22 02:26] VITALS: BP 108/54
[2022-09-22 07:58] VITALS: BP 121/57
--- NOTE | 2022-09-22 12:40 | NUR ---
PHYSICIAN CONTACT NOTIFED THAT PT STATES HER PAIN IS NOT MANAGED AND WANTS "SOMETHING STRONGER". DR. MORRIS STATED SHE WILL REVIEW THE PTS CHART. DR. MORRIS ALSO NOTIFED OF PTS REDDENED BELLY BUTTON.
[2022-09-22 15:35] VITALS: BP 117/70
--- NOTE | 2022-09-22 16:50 | NUR ---
SHIFT SUMMARY PT. AOX4, ABLE TO MAKE NEEDS KNOWN. PT. TURNED FREQUENTLY. PAIN ASSESSED WITH C/O PAIN MEDS NOT COVERING PAIN, NOTIFIED, PAIN MEDICATED PER ORDERS; SEE EMAR. PT. UP IN CHAIR TODAY, TOLERATED WELL. PT. DENIES CHEST PAIN OR DISCOMFORT. BED LOCKED AND IN LOWEST POSITION, CALL LIGHT WITHIN REACH.
[2022-09-22 19:59] VITALS: BP 135/66
--- NOTE | 2022-09-23 06:01 | NUR ---
SHIFT SUMMARY 67 YR F ADMITTED ON 09/08/22 FOR ACUTE EXACERBATION CHF. FULL CODE. PT C/O CONSTIPATION AND WAS GIVEN A "BROWN COW" OF PRUNE JUICE AND MELTED BUTTER. HOSPITALIST WAS CALLED AND A SUPPOSITORY WAS ORDERED AND ADMINISTERED. PT HAD A MEDIUM SIZED BM BUT STATED THAT SHE FELT LIKE THERE WAS MORE IN THERE. SO FAR THIS SHIFT HAS HAS NOT HAD ANOTHER BM. SHE TENDS TO YELL OUT LOUDLY AND IS ARGUMENTATIVE WITH STAFF.
[2022-09-23 06:11] LABS: Albumin, Blood 2.7 g/dL (3.4-5.0); Albumin/Globulin Ratio 0.7 (0.8-1.8); Bilirubin, Total 0.4 mg/dL (0.1-1.0); Bun/Creatinine Ratio 47.6 (12.0-20.0); Calcium, Blood 8.9 mg/dL (8.5-10.1); Creatinine, Blood 0.5 mg/dL (0.40-1.00); Globulin, Blood 4.1 g/dL (2.2-4.0); Potassium, Blood 4.2 mmol/L (3.5-5.5); Total Protein, Blood 6.8 g/dL (6.4-8.2)
[2022-09-23 06:30] LABS: Red Blood Cell Count 4.55 M/mm3 (3.80-5.20); White Blood Cell Count 6.57 K/mm3 (4.00-11.30)
[2022-09-23 06:31] LABS: Mean Corpuscular HGB 30.8 pg (26.0-34.0); Mean Corpuscular HGB Conc 34.1 g/dL (31.5-36.5); Mean Corpuscular Volume 90 fL (80-100); Mean Platelet Volume 10.8 fL (9.1-12.4); Platelet Count 211 K/mm3 (150-400); RDW Standard Deviation 42.7 fL (35.1-46.3)
[2022-09-23 07:18] VITALS: BP 132/60
--- NOTE | 2022-09-23 16:45 | NUR ---
SHIFT SUMMARY PATIENT WAS VERY ANXIOUS AT BEGINNING OF SHIFT AND NAMECALLING STAFF. PAIN HAS BEEN A CONSTANT ISSUE. MEDICATED PER EMAJoanna AND DR MORRIS AWARE. PAIN MEDS INCREASED TODAY ALLOWED SOME PROGRESS IN PAIN CONTROL. BED IN LOW POSITION, CALL LIGHT IN REACH. PATIENT CALLS WITH CALL LIGHT ON OCCAISION BUT OTHERWISE VOCALIZES NEEDS, AUDIBLE IN HALLWAY. PATIENT STRUGGLES WITH LEFT SIDE WEEKNESS. WILL CONTINUE TO MONITOR.
[2022-09-23 17:44] VITALS: BP 151/68
[2022-09-23 19:58] VITALS: BP 132/61
--- NOTE | 2022-09-24 02:30 | NUR ---
SHIFT SUMMARY 67 YR F ADMITTED ON 09/08/22 FOR ACUTE EXACERBATION OF CHF. FULL CODE. NO ACUTE CHANGES THIS SHIFT. PAIN CONTROL A[[EARS TO BE MUCH MORE AFFECTIVE THIS SHIFT THAN IT WAS LAST NIGHT. PT HAS BEEN PLEASANT AND COOPERATIVE WITH CARE. SHE WAS JOKING AND LAUGHING WITH STAFF WHICH IS A BIG CHANGE FROM PRIOR BEHAVIORS. SHE HAS SLEPT FOR SEVERAL HOURS AT A TIME WELL.
[2022-09-24 04:10] VITALS: BP 131/58
[2022-09-24 08:06] VITALS: BP 152/56
[2022-09-24 17:33] VITALS: BP 148/64
--- NOTE | 2022-09-24 18:34 | NUR ---
SHIFT SUMMARY PT PLEASANT TODAY. NO ACUTE CHANGES/EVENTS. PT COMPLAINS OF PAIN. PAIN MEDS INCREASED AND MEDICATED PER JUL. PT ATE WELL TODAY AND SLEPT WELL. PT AT BEDSIDE T/O THE DAY. PT USES CALL LIGHT APPROPRIATELY. BED IN LOWEST POSITION. PT AWAITING A SAFE PLACE FOR DISCHARGE
--- NOTE | 2022-09-24 18:45 | NUR ---
REVIEWED ASSESSMENTS AND NOTES CHARTED BY MARYBETH, STUDENT NURSE AND AGREE WITH HER DOCUMENATION FOR THIS PATIENT.
[2022-09-24 19:43] VITALS: BP 138/59
[2022-09-25 04:38] VITALS: BP 116/51
--- NOTE | 2022-09-25 04:47 | NUR ---
SHIFT SUMMARY 67 YR F ADMITTED ON 09/08/22 FOR ACUTE EXACERBATION OF CHF. FULL CODE. NO ACUTE CHANGES THIS SHIFT. PY STILL C/O PAIN AT AN 8/10 AND APPEARS TO BE PAINFUL MOST OF THE TIME THAT SHE IS AWAKE. SHE SLEPT FOR A FEW HOURS AT A TIME THIS SHIFT AND CALLS OUT REPEATEDLY FOR HELP WHEN SHE WAKES UP. HER ATTITUDE TOWARDS STAFF HAS BEEN FRINDLY AND EVEN PLAYFUL AT TIMES. SHE REQUESTS FREQUENT REPOSITIONING SHE APPEARS TO BE IN PAIN REGARDLESS OF HER POSITION. WHE WAS UP TO THE BEDSIDE COMMODE ONCE THIS SHIFT AND HAD A SMALL BM.
[2022-09-25 05:42] LABS: Hematocrit 37.7 % (33.0-51.0); Hemoglobin 12.9 g/dL (11.5-16.0); Mean Corpuscular HGB 30.7 pg (26.0-34.0); Mean Corpuscular HGB Conc 34.2 g/dL (31.5-36.5); Mean Corpuscular Volume 90 fL (80-100); Mean Platelet Volume 10.4 fL (9.1-12.4); Platelet Count 214 K/mm3 (150-400); RDW Coefficient Variation 12.9 % (11.7-14.2); RDW Standard Deviation 42.5 fL (35.1-46.3); White Blood Cell Count 4.63 K/mm3 (4.00-11.30)
[2022-09-25 06:10] LABS: Albumin, Blood 2.5 g/dL (3.4-5.0); Albumin/Globulin Ratio 0.7 (0.8-1.8); Bilirubin, Total 0.5 mg/dL (0.1-1.0); Bun/Creatinine Ratio 46.2 (12.0-20.0); Calcium, Blood 8.7 mg/dL (8.5-10.1); Creatinine, Blood 0.58 mg/dL (0.40-1.00); Globulin, Blood 3.5 g/dL (2.2-4.0); Potassium, Blood 3.9 mmol/L (3.5-5.5)
[2022-09-25 07:21] VITALS: BP 126/50
[2022-09-25] MEDS ORDERED: DULCOLAX400 MG/5 M PO (14:17)
[2022-09-25] MEDS ORDERED: ACET325 PO (14:20)
[2022-09-25] MEDS ORDERED: ALBU2.5V5 INH (14:20)
[2022-09-25] MEDS ORDERED: ASPI81CH PO (14:21)
[2022-09-25] MEDS ORDERED: ATOR40TA PO (14:21)
[2022-09-25 14:28] LABS: SARS-Cov-2 (COVID-19) PCR, MMC NEGATIVE (NEGATIVE)
[2022-09-25] MEDS ORDERED: BISA10S PR (14:28)
[2022-09-25] MEDS ORDERED: FENTANYL1 EA12 TOP (14:29)
[2022-09-25] MEDS ORDERED: FURO20 PO (14:31)
[2022-09-25] MEDS ORDERED: INSULANPEN SC (14:32)
[2022-09-25] MEDS ORDERED: HUMALOG KW100 UNIT/1 SC (14:34)
[2022-09-25] MEDS ORDERED: METOPROLOL SUCC25 MG PO (14:40)
[2022-09-25] MEDS ORDERED: MIRT15ST PO (14:41)
[2022-09-25] MEDS ORDERED: Nicoderm Cq1 EAC1 TOP (14:42)
[2022-09-25] MEDS ORDERED: OXAYDO5 M1 PO (14:44)
[2022-09-25 16:05] VITALS: BP 114/45
[2022-09-25 16:11] VITALS: BP 122/55
--- NOTE | 2022-09-25 16:34 | NUR ---
DISCHARGED PT DISCHARGED TO FACILITY. TRANSPORTED BY [facility]. TREATED PAIN PER EMAR DURING SHIFT AND RIGHT BEFORE PT LEFT FOR COMFORT. ALERT AND ORIENTED X4, R/A, ABLE TO EXPRESS NEEDS. DISCHARGE DISCUSSED WITH PT. NO QUESTIONS AT THIS TIME.
--- NOTE | 2022-09-25 16:36 | NUR ---
REPORT GIVEN TO RN AT FACILITY
== END 2022-09-25 16:21 | DRG 286 ==
LOC: ER 01:13 → PCU 01:14 → MEDS 01:14 → PCU 01:14 → MEDS 09-14 13:33 → ENPENDDIS 09-25 13:09 → MEDS 09-25 16:21
PROVIDERS: Family Medicine; Internal Medicine; Internal Medicine Interventional Cardiology; Student in an Organized Health Care Education/Training Program; ADMIT Student in an Organized Health Care Education/Training Program
PROC: 4A023N7 Measurement of Cardiac Sampling and Pressure, Left Heart, Percutaneous Approach (ICD-10-PCS; principal; 2022-09-11)
PROC: B2111ZZ Fluoroscopy of Multiple Coronary Arteries using Low Osmolar Contrast (ICD-10-PCS; 2022-09-11)
PROC: 0DH67UZ Insertion of Feeding Device into Stomach, Via Natural or Artificial Opening (ICD-10-PCS; 2022-09-12)
DX: I11.0 Hypertensive heart disease with heart failure (principal); I50.43 Acute on chronic combined systolic (congestive) and diastolic (congestive) heart failure; I63.81 Other cerebral infarction due to occlusion or stenosis of small artery; J96.01 Acute respiratory failure with hypoxia; M48.56XA Collapsed vertebra, not elsewhere classified, lumbar region, initial encounter for fracture; G81.94 Hemiplegia, unspecified affecting left nondominant side; I42.0 Dilated cardiomyopathy; M54.9 Dorsalgia, unspecified; J44.9 Chronic obstructive pulmonary disease, unspecified; F15.10 Other stimulant abuse, uncomplicated; F17.210 Nicotine dependence, cigarettes, uncomplicated; E11.59 Type 2 diabetes mellitus with other circulatory complications; R79.1 Abnormal coagulation profile; R29.810 Facial weakness; M16.0 Bilateral primary osteoarthritis of hip; Z20.822 Contact with and (suspected) exposure to COVID-19; I25.119 Atherosclerotic heart disease of native coronary artery with unspecified angina pectoris; E11.65 Type 2 diabetes mellitus with hyperglycemia; R63.4 Abnormal weight loss; Z68.26 Body mass index [BMI] 26.0-26.9, adult; R13.10 Dysphagia, unspecified; F32.A Depression, unspecified; G89.4 Chronic pain syndrome; K59.00 Constipation, unspecified; Z79.4 Long term (current) use of insulin; Z99.3 Dependence on wheelchair; Z95.5 Presence of coronary angioplasty implant and graft; Z98.890 Other specified postprocedural states; Z91.148 Patient's other noncompliance with medication regimen for other reason; Z88.0 Allergy status to penicillin; Z71.6 Tobacco abuse counseling; Z88.2 Allergy status to sulfonamides; Z88.5 Allergy status to narcotic agent; Z88.8 Allergy status to other drugs, medicaments and biological substances; Z79.899 Other long term (current) drug therapy; Z86.14 Personal history of Methicillin resistant Staphylococcus aureus infection; Z79.82 Long term (current) use of aspirin; Z79.02 Long term (current) use of antithrombotics/antiplatelets; Z79.01 Long term (current) use of anticoagulants; Z79.891 Long term (current) use of opiate analgesic
CPT/HCPCS: 36415; 70450; 70551; 71045; 71260; 72100; 73522; 76937; 78452; 80048; 80053; 80061; 80069; 81001; 82947; 83036; 83605; 83735; 83880; 84100; 84145; 84443; 84484; 85025; 85027; 85379; 85520; 85610; 85730; 87040; 87086; 92526; 92610; 93005; 93010; 93017; 93306; 93458; 93880; 93926; 93971; 94640; 94664; 94760; 94762; 96365; 96372; 96375; 96376; 97110; 97112; 97163; 97165; 97530; 97530-CQ; 97535; 99152; 99153; 99285-25; A9270; A9500; C1769; C1887; C1894; G0378; J0280; J0456; J0696; J1170; J1644; J1650; J1815; J1885; J1940; J2250; J2270; J2405; J2785; J3010; J7030; J7050; Q9967; U0002

== ENCOUNTER 2022-12-24 21:23 | Emergency (ER) | payer MEDICARE, OTHER ==
[~2022-12-24] VITALS: Ht 167.6 cm; Wt 77.1 kg
[~2022-12-24 21:23] MED LIST changes: +ACET325 PO; +ALBU2.5V5 INH; +ATOR40TA PO; +BISA10S PR; +DULCOLAX400 MG/5 M PO; +FENTANYL1 EA12 TOP; +FURO20 PO; +HUMALOG KW100 UNIT/1 SC; +INSULANPEN SC; +METOPROLOL SUCC25 MG PO; +MIRT15ST PO; +Nicoderm Cq1 EAC1 TOP; +OXAYDO5 M1 PO
[2022-12-24 21:38] LABS: BASOPHILS ABSOLUTE AUTO 0.02 K/mm3 (0.00-0.23); BASOPHILS PERCENT AUTO 0 % (0-2); EOSINOPHILS ABSOLUTE AUTO 0.14 K/mm3 (0.00-0.68); EOSINOPHILS PERCENT AUTO 3 % (0-6); Hematocrit 41.7 % (33.0-51.0); Hemoglobin 14.6 g/dL (11.5-16.0); IMMATURE GRAN ABSOLUTE AUTO 0.01 K/mm3 (0.00-0.10); IMMATURE GRAN PERCENT AUTO 0 % (0-1); LYMPHOCYTES ABSOLUTE AUTO 1.67 K/mm3 (0.84-5.20); LYMPHOCYTES PERCENT AUTO 36 % (21-46); MONOCYTES ABSOLUTE AUTO 0.42 K/mm3 (0.16-1.47); MONOCYTES PERCENT AUTO 9 % (4-13); Mean Corpuscular Volume 89 fL (80-100); Mean Platelet Volume 9.3 fL (9.1-12.4); NEUTROPHILS ABSOLUTE AUTO 2.39 K/mm3 (1.96-9.15); NEUTROPHILS PERCENT AUTO 52 % (41-73); Platelet Count 209 K/mm3 (150-400); RDW Coefficient Variation 12.5 % (11.7-14.2); RDW Standard Deviation 40.6 fL (35.1-46.3); Red Blood Cell Count 4.71 M/mm3 (3.80-5.20); White Blood Cell Count 4.65 K/mm3 (4.00-11.30)
[2022-12-24 21:53] LABS: International Normalized Ratio 1.07; Prothrombin Time Results 11.2 Sec (9.7-11.5)
[2022-12-24 21:59] LABS: Albumin, Blood 3.1 g/dL (3.4-5.0); Albumin/Globulin Ratio 0.8 (0.8-1.8); Bilirubin, Total 0.5 mg/dL (0.1-1.0); Bun/Creatinine Ratio 35.4 (12.0-20.0); Calcium, Blood 8.7 mg/dL (8.5-10.1); Creatinine, Blood 0.54 mg/dL (0.40-1.00); Total Protein, Blood 7.1 g/dL (6.4-8.2)
[2022-12-24 22:18] LABS: Source, Urine Fem Cath
[2022-12-24 22:33] LABS: Appearance, Urine Turbid (Clear); Bilirubin, Urine Neg (Neg); Blood, Urine 1+ (Neg); Color, Urine Yellow (P-Yellow); Glucose Qualitative, Urine Neg (Neg); Ketones, Urine Neg (Neg); Leukocyte Esterase, Urine 2+ (Neg); Nitrite, Urine Pos (Neg); Protein, Urine 2+ (Neg); Specific Gravity, Urine 1.015 (1.003-1.022); Urobilinogen, Urine NORM (Normal)
[2022-12-24 23:03] LABS: Amorphous Heavy (0-Heavy); Bacteria Few /hpf; Mucus Light (0-Heavy); Red Blood Cells, Urine 0-2 /hpf (0-2); Squamous Epithelial Cells Few /hpf (Few)
[2022-12-24] MEDS ORDERED: CEPH500 PO (23:26)
[2022-12-25 00:30] VITALS: BP 150/80
[2022-12-26] MEDS ORDERED: Macrobid 100 M100 MG PO (17:24)
== END 2022-12-25 00:44 | disposition home or self-care (01) ==
LOC: ER 21:23
PROVIDERS: Emergency Medicine
DX: N39.0 Urinary tract infection, site not specified (principal); R41.82 Altered mental status, unspecified; I69.354 Hemiplegia and hemiparesis following cerebral infarction affecting left non-dominant side; E11.9 Type 2 diabetes mellitus without complications; I11.0 Hypertensive heart disease with heart failure; I50.30 Unspecified diastolic (congestive) heart failure; J44.9 Chronic obstructive pulmonary disease, unspecified; I25.10 Atherosclerotic heart disease of native coronary artery without angina pectoris; Z95.5 Presence of coronary angioplasty implant and graft; Z88.8 Allergy status to other drugs, medicaments and biological substances; Z88.5 Allergy status to narcotic agent; Z88.0 Allergy status to penicillin; Z88.2 Allergy status to sulfonamides; Z79.899 Other long term (current) drug therapy; Z79.82 Long term (current) use of aspirin; Z79.4 Long term (current) use of insulin; Z09 Encounter for follow-up examination after completed treatment for conditions other than malignant neoplasm; Z86.14 Personal history of Methicillin resistant Staphylococcus aureus infection
CPT/HCPCS: 51701; 70450; 74177; 80053; 81001; 85025; 85610; 87077; 87086; 87186; 93005; 93010; 96365-59; 99285-25; A9270; J0696; Q9967

== ENCOUNTER 2022-12-26 16:32 | Emergency (ER) | payer MEDICARE, OTHER ==
[~2022-12-26] VITALS: Ht 162.6 cm; Wt 81.7 kg
[~2022-12-26 16:32] MED LIST changes: +CEPH500 PO
[2022-12-26 16:36] VITALS: BP 147/77
[2022-12-26 17:00] LABS: BASOPHILS ABSOLUTE AUTO 0.03 K/mm3 (0.00-0.23); BASOPHILS PERCENT AUTO 1 % (0-2); EOSINOPHILS ABSOLUTE AUTO 0.16 K/mm3 (0.00-0.68); EOSINOPHILS PERCENT AUTO 3 % (0-6); Hematocrit 38.7 % (33.0-51.0); Hemoglobin 13.6 g/dL (11.5-16.0); IMMATURE GRAN ABSOLUTE AUTO 0.01 K/mm3 (0.00-0.10); IMMATURE GRAN PERCENT AUTO 0 % (0-1); LYMPHOCYTES ABSOLUTE AUTO 1.46 K/mm3 (0.84-5.20); LYMPHOCYTES PERCENT AUTO 31 % (21-46); MONOCYTES ABSOLUTE AUTO 0.43 K/mm3 (0.16-1.47); MONOCYTES PERCENT AUTO 9 % (4-13); Mean Corpuscular HGB 31.2 pg (26.0-34.0); Mean Corpuscular HGB Conc 35.1 g/dL (31.5-36.5); Mean Corpuscular Volume 89 fL (80-100); Mean Platelet Volume 9.4 fL (9.1-12.4); NEUTROPHILS ABSOLUTE AUTO 2.59 K/mm3 (1.96-9.15); NEUTROPHILS PERCENT AUTO 55 % (41-73); Platelet Count 199 K/mm3 (150-400); RDW Coefficient Variation 12.4 % (11.7-14.2); RDW Standard Deviation 40.6 fL (35.1-46.3); Red Blood Cell Count 4.36 M/mm3 (3.80-5.20); White Blood Cell Count 4.68 K/mm3 (4.00-11.30)
[2022-12-26 17:20] LABS: Albumin, Blood 3.1 g/dL (3.4-5.0); Albumin/Globulin Ratio 0.8 (0.8-1.8); Bilirubin, Total 0.4 mg/dL (0.1-1.0); Bun/Creatinine Ratio 45.1 (12.0-20.0); Calcium, Blood 8.8 mg/dL (8.5-10.1); Creatinine, Blood 0.42 mg/dL (0.40-1.00); Globulin, Blood 3.9 g/dL (2.2-4.0); Potassium, Blood 3.8 mmol/L (3.5-5.5)
[2022-12-26] MEDS ORDERED: Macrobid 100 M100 MG PO (17:24)
[2022-12-27] MEDS ORDERED: CITALOPRAM HBR10 MG (01:46)
[2022-12-27] MEDS ORDERED: ELIQUIS5 M2 (01:47)
[2022-12-27] MEDS ORDERED: GABA300 (01:47)
[2022-12-27] MEDS ORDERED: METF500 (01:48)
[2022-12-27] MEDS ORDERED: TRAM50 (01:50)
[2022-12-27] MEDS ORDERED: NYSTRIT (01:51)
== END 2022-12-26 20:31 | disposition home or self-care (01) ==
LOC: ER 16:32
PROVIDERS: Emergency Medicine
DX: M62.838 Other muscle spasm (principal); N39.0 Urinary tract infection, site not specified; B95.2 Enterococcus as the cause of diseases classified elsewhere; R47.81 Slurred speech; E11.9 Type 2 diabetes mellitus without complications; J44.9 Chronic obstructive pulmonary disease, unspecified; I25.10 Atherosclerotic heart disease of native coronary artery without angina pectoris; I11.0 Hypertensive heart disease with heart failure; I50.30 Unspecified diastolic (congestive) heart failure; F17.210 Nicotine dependence, cigarettes, uncomplicated; Z88.0 Allergy status to penicillin; Z88.2 Allergy status to sulfonamides; Z88.5 Allergy status to narcotic agent; Z88.6 Allergy status to analgesic agent; Z88.8 Allergy status to other drugs, medicaments and biological substances; Z79.4 Long term (current) use of insulin; Z79.82 Long term (current) use of aspirin; Z79.899 Other long term (current) drug therapy
CPT/HCPCS: 80053; 85025; 99285; A9270

== ENCOUNTER 2022-12-26 21:13 | Emergency (ER) | payer MEDICARE, OTHER ==
[~2022-12-26] VITALS: Ht 162.6 cm; Wt 68.0 kg
[~2022-12-26 21:13] MED LIST changes: +Macrobid 100 M100 MG PO
[2022-12-27 00:58] LABS: BASOPHILS ABSOLUTE AUTO 0.03 K/mm3 (0.00-0.23); BASOPHILS PERCENT AUTO 1 % (0-2); EOSINOPHILS ABSOLUTE AUTO 0.06 K/mm3 (0.00-0.68); EOSINOPHILS PERCENT AUTO 1 % (0-6); Hematocrit 40.9 % (33.0-51.0); Hemoglobin 14.7 g/dL (11.5-16.0); IMMATURE GRAN ABSOLUTE AUTO 0.01 K/mm3 (0.00-0.10); IMMATURE GRAN PERCENT AUTO 0 % (0-1); LYMPHOCYTES ABSOLUTE AUTO 1.63 K/mm3 (0.84-5.20); LYMPHOCYTES PERCENT AUTO 26 % (21-46); MONOCYTES PERCENT AUTO 8 % (4-13); Mean Corpuscular HGB 31.4 pg (26.0-34.0); Mean Corpuscular HGB Conc 35.9 g/dL (31.5-36.5); Mean Corpuscular Volume 87 fL (80-100); NEUTROPHILS ABSOLUTE AUTO 4.13 K/mm3 (1.96-9.15); NEUTROPHILS PERCENT AUTO 65 % (41-73); Platelet Count 196 K/mm3 (150-400); RDW Coefficient Variation 12.3 % (11.7-14.2); RDW Standard Deviation 39.3 fL (35.1-46.3); Red Blood Cell Count 4.68 M/mm3 (3.80-5.20); White Blood Cell Count 6.36 K/mm3 (4.00-11.30)
[2022-12-27 01:15] LABS: Albumin, Blood 3.2 g/dL (3.4-5.0); Albumin/Globulin Ratio 0.8 (0.8-1.8); Bilirubin, Total 0.6 mg/dL (0.1-1.0); Bun/Creatinine Ratio 50.1 (12.0-20.0); Calcium, Blood 8.5 mg/dL (8.5-10.1); Creatinine, Blood 0.36 mg/dL (0.40-1.00); Potassium, Blood 3.8 mmol/L (3.5-5.5); Total Protein, Blood 7.2 g/dL (6.4-8.2)
[2022-12-27] MEDS ORDERED: CITALOPRAM HBR10 MG (01:46)
[2022-12-27] MEDS ORDERED: GABA300 (01:47)
[2022-12-27] MEDS ORDERED: ELIQUIS5 M2 (01:47)
[2022-12-27] MEDS ORDERED: METF500 (01:48)
[2022-12-27] MEDS ORDERED: TRAM50 (01:50)
[2022-12-27] MEDS ORDERED: NYSTRIT (01:51)
[2022-12-27 02:30] VITALS: BP 162/90
== END 2022-12-27 02:31 | disposition home or self-care (01) ==
LOC: ER 21:13
PROVIDERS: Emergency Medicine
DX: R03.0 Elevated blood-pressure reading, without diagnosis of hypertension (principal); I11.0 Hypertensive heart disease with heart failure; E11.9 Type 2 diabetes mellitus without complications; I50.30 Unspecified diastolic (congestive) heart failure; I25.10 Atherosclerotic heart disease of native coronary artery without angina pectoris; J44.9 Chronic obstructive pulmonary disease, unspecified; F17.210 Nicotine dependence, cigarettes, uncomplicated; M54.9 Dorsalgia, unspecified; G89.29 Other chronic pain; Z88.0 Allergy status to penicillin; Z88.2 Allergy status to sulfonamides; Z88.5 Allergy status to narcotic agent; Z88.8 Allergy status to other drugs, medicaments and biological substances; Z88.6 Allergy status to analgesic agent; Z79.899 Other long term (current) drug therapy; Z79.891 Long term (current) use of opiate analgesic; Z79.82 Long term (current) use of aspirin; Z79.4 Long term (current) use of insulin
CPT/HCPCS: 80053; 85025; 99285; A9270

== ENCOUNTER 2023-03-19 21:23 | Emergency (ER) | payer MEDICARE, OTHER ==
[~2023-03-19] VITALS: Ht 162.6 cm; Wt 70.3 kg
[~2023-03-19 21:23] MED LIST changes: +CITALOPRAM HBR10 MG; +ELIQUIS5 M2; +GABA300; +METF500; +NYSTRIT; +TRAM50
[2023-03-19 21:49] VITALS: BP 113/61
[2023-03-19 23:03] LABS: BASOPHILS ABSOLUTE AUTO 0.02 K/mm3 (0.00-0.23); BASOPHILS PERCENT AUTO 0 % (0-2); EOSINOPHILS ABSOLUTE AUTO 0.16 K/mm3 (0.00-0.68); EOSINOPHILS PERCENT AUTO 3 % (0-6); Hematocrit 40.4 % (33.0-51.0); Hemoglobin 13.7 g/dL (11.5-16.0); IMMATURE GRAN ABSOLUTE AUTO 0.02 K/mm3 (0.00-0.10); IMMATURE GRAN PERCENT AUTO 0 % (0-1); LYMPHOCYTES ABSOLUTE AUTO 1.59 K/mm3 (0.84-5.20); LYMPHOCYTES PERCENT AUTO 26 % (21-46); MONOCYTES PERCENT AUTO 12 % (4-13); Mean Corpuscular HGB 29.8 pg (26.0-34.0); Mean Corpuscular HGB Conc 33.9 g/dL (31.5-36.5); Mean Corpuscular Volume 88 fL (80-100); Mean Platelet Volume 9.2 fL (9.1-12.4); NEUTROPHILS ABSOLUTE AUTO 3.53 K/mm3 (1.96-9.15); NEUTROPHILS PERCENT AUTO 59 % (41-73); Platelet Count 257 K/mm3 (150-400); RDW Coefficient Variation 13.8 % (11.7-14.2); RDW Standard Deviation 44.3 fL (35.1-46.3); Red Blood Cell Count 4.59 M/mm3 (3.80-5.20); White Blood Cell Count 6.02 K/mm3 (4.00-11.30)
[2023-03-19 23:24] LABS: Ethanol (Alcohol), Blood, Med <3 mg/dL
[2023-03-19 23:25] LABS: Alanine Aminotransfer (ALT/SGP 32 U/L (12-78); Albumin, Blood 2.6 g/dL (3.4-5.0); Albumin/Globulin Ratio 0.5 (0.8-1.8); Alk Phos 122 U/L (50-136); Anion Gap 4 mmol/L (6-16); Aspartate Aminotrans (AST/SGOT 31 U/L (12-37); Bilirubin, Total 0.2 mg/dL (0.1-1.0); Blood Urea Nitrogen 16 mg/dL (8-24); Bun/Creatinine Ratio 28.2 (12.0-20.0); CO2, Blood 31 mmol/L (21-32); Calcium, Blood 8.4 mg/dL (8.5-10.1); Chloride, Blood 107 mmol/L (98-108); Creatinine, Blood 0.57 mg/dL (0.40-1.00); Globulin, Blood 5.2 g/dL (2.2-4.0); Glomerular Filtration Rate 98 (60-); Glucose, Blood 173 mg/dL (70-99); Potassium, Blood 4.1 mmol/L (3.5-5.5); Sodium, Blood 142 mmol/L (136-145); Total Protein, Blood 7.8 g/dL (6.4-8.2)
== END 2023-03-20 02:25 | disposition home or self-care (01) ==
LOC: ER 21:23
PROVIDERS: Emergency Medicine
DX: F32.A Depression, unspecified (principal); F41.9 Anxiety disorder, unspecified; Z88.0 Allergy status to penicillin; Z88.2 Allergy status to sulfonamides; Z88.5 Allergy status to narcotic agent; Z88.8 Allergy status to other drugs, medicaments and biological substances; Z79.899 Other long term (current) drug therapy; Z79.84 Long term (current) use of oral hypoglycemic drugs; Z79.4 Long term (current) use of insulin; F17.210 Nicotine dependence, cigarettes, uncomplicated; I11.0 Hypertensive heart disease with heart failure; I50.30 Unspecified diastolic (congestive) heart failure; E11.9 Type 2 diabetes mellitus without complications; J44.9 Chronic obstructive pulmonary disease, unspecified; I25.10 Atherosclerotic heart disease of native coronary artery without angina pectoris; M19.90 Unspecified osteoarthritis, unspecified site
CPT/HCPCS: 80053; 84436; 84443; 85025; 99283; A9270

== ENCOUNTER 2023-05-28 07:22 | Inpatient (IN) | payer MEDICARE, OTHER ==
[~2023-05-28] VITALS: Ht 162.6 cm; Wt 73.4 kg
[~2023-05-28 07:22] MED LIST changes: -BISA10S PR; +BISA5EC PO; +METO25 PO; -METOPROLOL SUCC25 MG PO
[2023-05-28 08:38] LABS: BASOPHILS ABSOLUTE AUTO 0.02 K/mm3 (0.00-0.23); BASOPHILS PERCENT AUTO 0 % (0-2); EOSINOPHILS ABSOLUTE AUTO 0.08 K/mm3 (0.00-0.68); EOSINOPHILS PERCENT AUTO 1 % (0-6); Hematocrit 45.1 % (33.0-51.0); Hemoglobin 14.2 g/dL (11.5-16.0); IMMATURE GRAN ABSOLUTE AUTO 0.02 K/mm3 (0.00-0.10); IMMATURE GRAN PERCENT AUTO 0 % (0-1); LYMPHOCYTES ABSOLUTE AUTO 1.67 K/mm3 (0.84-5.20); LYMPHOCYTES PERCENT AUTO 24 % (21-46); MONOCYTES PERCENT AUTO 10 % (4-13); Mean Corpuscular HGB 28.2 pg (26.0-34.0); Mean Corpuscular HGB Conc 31.5 g/dL (31.5-36.5); Mean Corpuscular Volume 90 fL (80-100); Mean Platelet Volume 9.6 fL (9.1-12.4); NEUTROPHILS ABSOLUTE AUTO 4.48 K/mm3 (1.96-9.15); NEUTROPHILS PERCENT AUTO 64 % (41-73); Platelet Count 260 K/mm3 (150-400); RDW Coefficient Variation 15.5 % (11.7-14.2); Red Blood Cell Count 5.04 M/mm3 (3.80-5.20); White Blood Cell Count 6.97 K/mm3 (4.00-11.30)
[2023-05-28 09:05] LABS: Albumin, Blood 2.2 g/dL (3.4-5.0); Albumin/Globulin Ratio 0.4 (0.8-1.8); Bilirubin, Total 0.5 mg/dL (0.1-1.0); Bun/Creatinine Ratio 65.6 (12.0-20.0); Calcium, Blood 8.8 mg/dL (8.5-10.1); Creatinine, Blood 0.37 mg/dL (0.40-1.00); Globulin, Blood 5.9 g/dL (2.2-4.0); Potassium, Blood 4.4 mmol/L (3.5-5.5); Total Protein, Blood 8.1 g/dL (6.4-8.2)
[2023-05-28] MEDS ORDERED: AMLODIPINE BESY10 MG PO (13:41)
[2023-05-28] MEDS ORDERED: ASPI81CH PO (13:42)
[2023-05-28] MEDS ORDERED: Cyclobenzaprine5 MG PO (13:46)
[2023-05-28] MEDS ORDERED: Fleet Enema132 ML PR (13:48)
[2023-05-28] MEDS ORDERED: AZIT250 PO (13:49)
[2023-05-28] MEDS ORDERED: GABA300 PO (13:50)
[2023-05-28] MEDS ORDERED: GUAI600T33 PO (13:51)
[2023-05-28] MEDS ORDERED: HYDROCODONE-AC1 EA19 PO (13:52)
[2023-05-28] MEDS ORDERED: JARDIANCE10 MG PO (13:53)
[2023-05-28] MEDS ORDERED: LACT10SY PO (13:54)
[2023-05-28] MEDS ORDERED: MS CONTIN3010 PO (13:56)
[2023-05-28] MEDS ORDERED: DOCUZEN 8.6-501 EACH PO (13:57)
[2023-05-28] MEDS ORDERED: ONDA4 PO (13:59)
[2023-05-28 14:23] VITALS: BP 133/73
[2023-05-28 14:37] LABS: Influenza A, PCR NEGATIVE (NEGATIVE); Influenza B, PCR NEGATIVE (NEGATIVE); Resp Syncytial Virus, PCR NEGATIVE (NEGATIVE); SARS-Cov-2 (COVID-19) PCR, MMC NEGATIVE (NEGATIVE)
[2023-05-28 15:55] VITALS: BP 122/79
[2023-05-28 20:09] VITALS: BP 130/83
[2023-05-29 02:42] VITALS: BP 106/63
[2023-05-29 05:05] LABS: BASOPHILS ABSOLUTE AUTO 0.03 K/mm3 (0.00-0.23); BASOPHILS PERCENT AUTO 0 % (0-2); EOSINOPHILS ABSOLUTE AUTO 0.07 K/mm3 (0.00-0.68); EOSINOPHILS PERCENT AUTO 1 % (0-6); Hematocrit 41.2 % (33.0-51.0); Hemoglobin 12.9 g/dL (11.5-16.0); IMMATURE GRAN ABSOLUTE AUTO 0.02 K/mm3 (0.00-0.10); IMMATURE GRAN PERCENT AUTO 0 % (0-1); LYMPHOCYTES ABSOLUTE AUTO 2.33 K/mm3 (0.84-5.20); LYMPHOCYTES PERCENT AUTO 34 % (21-46); MONOCYTES ABSOLUTE AUTO 0.88 K/mm3 (0.16-1.47); MONOCYTES PERCENT AUTO 13 % (4-13); Mean Corpuscular HGB 27.9 pg (26.0-34.0); Mean Corpuscular HGB Conc 31.3 g/dL (31.5-36.5); Mean Corpuscular Volume 89 fL (80-100); Mean Platelet Volume 9.3 fL (9.1-12.4); NEUTROPHILS ABSOLUTE AUTO 3.53 K/mm3 (1.96-9.15); NEUTROPHILS PERCENT AUTO 52 % (41-73); Platelet Count 307 K/mm3 (150-400); RDW Coefficient Variation 15.3 % (11.7-14.2); RDW Standard Deviation 50.5 fL (35.1-46.3); Red Blood Cell Count 4.63 M/mm3 (3.80-5.20); White Blood Cell Count 6.86 K/mm3 (4.00-11.30)
[2023-05-29 06:00] LABS: Albumin/Globulin Ratio 0.4 (0.8-1.8); Bilirubin, Total 0.5 mg/dL (0.1-1.0); Bun/Creatinine Ratio 48.5 (12.0-20.0); Calcium, Blood 8.6 mg/dL (8.5-10.1); Creatinine, Blood 0.45 mg/dL (0.40-1.00); Globulin, Blood 5.2 g/dL (2.2-4.0); Magnesium, Blood 2.4 mg/dL (1.6-2.4); Potassium, Blood 3.9 mmol/L (3.5-5.5); Total Protein, Blood 7.2 g/dL (6.4-8.2)
[2023-05-29 07:50] VITALS: BP 120/69
[2023-05-29 16:39] VITALS: BP 91/45
[2023-05-29 18:07] VITALS: BP 113/59
[2023-05-29 20:17] VITALS: BP 103/61
[2023-05-30 02:29] VITALS: BP 103/58
[2023-05-30 06:27] LABS: Albumin, Blood 1.9 g/dL (3.4-5.0); Albumin/Globulin Ratio 0.4 (0.8-1.8); Bilirubin, Total 0.4 mg/dL (0.1-1.0); Bun/Creatinine Ratio 46.2 (12.0-20.0); Calcium, Blood 8.1 mg/dL (8.5-10.1); Creatinine, Blood 0.46 mg/dL (0.40-1.00); Globulin, Blood 4.8 g/dL (2.2-4.0); Potassium, Blood 3.7 mmol/L (3.5-5.5); Total Protein, Blood 6.7 g/dL (6.4-8.2)
[2023-05-30 07:35] VITALS: BP 105/61
[2023-05-30 12:40] VITALS: BP 111/54
[2023-05-30 16:12] VITALS: BP 97/63
[2023-05-30 19:53] VITALS: BP 113/66
[2023-05-31 02:30] VITALS: BP 106/59
[2023-05-31 06:11] LABS: Albumin, Blood 1.9 g/dL (3.4-5.0); Anion Gap 6 mmol/L (6-16); Blood Urea Nitrogen 23 mg/dL (8-24); CO2, Blood 27 mmol/L (21-32); Calcium, Blood 7.9 mg/dL (8.5-10.1); Chloride, Blood 110 mmol/L (98-108); Creatinine, Blood 0.47 mg/dL (0.40-1.00); Glomerular Filtration Rate 103 (60-); Glucose, Blood 121 mg/dL (70-99); Phosphorus, Blood 3.5 mg/dL (2.5-4.9); Potassium, Blood 3.6 mmol/L (3.5-5.5); Sodium, Blood 143 mmol/L (136-145)
[2023-05-31 07:13] VITALS: BP 130/67
[2023-05-31 08:28] LABS: Hematocrit 35.2 % (33.0-51.0); Hemoglobin 11.3 g/dL (11.5-16.0); Mean Corpuscular HGB 28.5 pg (26.0-34.0); Mean Corpuscular HGB Conc 32.1 g/dL (31.5-36.5); Mean Corpuscular Volume 89 fL (80-100); Mean Platelet Volume 8.9 fL (9.1-12.4); Platelet Count 269 K/mm3 (150-400); RDW Coefficient Variation 15.1 % (11.7-14.2); RDW Standard Deviation 49.2 fL (35.1-46.3); Red Blood Cell Count 3.97 M/mm3 (3.80-5.20); White Blood Cell Count 4.41 K/mm3 (4.00-11.30)
[2023-05-31 09:04] LABS: Bun/Creatinine Ratio 47.4 (12.0-20.0); Calcium, Blood 8.1 mg/dL (8.5-10.1); Creatinine, Blood 0.44 mg/dL (0.40-1.00); Potassium, Blood 3.4 mmol/L (3.5-5.5)
[2023-05-31 14:45] VITALS: BP 102/58
[2023-05-31 19:36] VITALS: BP 117/58
[2023-06-01 04:03] VITALS: BP 134/68
[2023-06-01 07:06] VITALS: BP 148/84
[2023-06-01 11:50] LABS: BASOPHILS ABSOLUTE AUTO 0.03 K/mm3 (0.00-0.23); BASOPHILS PERCENT AUTO 1 % (0-2); EOSINOPHILS ABSOLUTE AUTO 0.03 K/mm3 (0.00-0.68); EOSINOPHILS PERCENT AUTO 1 % (0-6); Hematocrit 34.6 % (33.0-51.0); IMMATURE GRAN ABSOLUTE AUTO 0.02 K/mm3 (0.00-0.10); IMMATURE GRAN PERCENT AUTO 0 % (0-1); LYMPHOCYTES ABSOLUTE AUTO 0.95 K/mm3 (0.84-5.20); LYMPHOCYTES PERCENT AUTO 16 % (21-46); MONOCYTES ABSOLUTE AUTO 0.43 K/mm3 (0.16-1.47); MONOCYTES PERCENT AUTO 7 % (4-13); Mean Corpuscular HGB 28.1 pg (26.0-34.0); Mean Corpuscular HGB Conc 31.8 g/dL (31.5-36.5); Mean Corpuscular Volume 88 fL (80-100); Mean Platelet Volume 9.1 fL (9.1-12.4); NEUTROPHILS ABSOLUTE AUTO 4.46 K/mm3 (1.96-9.15); NEUTROPHILS PERCENT AUTO 75 % (41-73); Platelet Count 279 K/mm3 (150-400); RDW Standard Deviation 48.4 fL (35.1-46.3); Red Blood Cell Count 3.92 M/mm3 (3.80-5.20); White Blood Cell Count 5.92 K/mm3 (4.00-11.30)
[2023-06-01 12:11] LABS: Bun/Creatinine Ratio 42.8 (12.0-20.0); Creatinine, Blood 0.4 mg/dL (0.40-1.00); Potassium, Blood 3.9 mmol/L (3.5-5.5)
[2023-06-01 12:16] LABS: Source, Urine Clean Catch
[2023-06-01 12:39] LABS: Appearance, Urine Cloudy (Clear); Bilirubin, Urine Neg (Neg); Blood, Urine 1+ (Neg); Color, Urine Yellow (P-Yellow); Glucose Qualitative, Urine 4+ (Neg); Ketones, Urine 1+ (Neg); Leukocyte Esterase, Urine 3+ (Neg); Nitrite, Urine Neg (Neg); Protein, Urine Neg (Neg); Specific Gravity, Urine 1.015 (1.003-1.022); Urobilinogen, Urine NORM (Normal)
[2023-06-01 12:57] LABS: Squamous Epithelial Cells Mod /hpf (Few); Yeast/Fungi Urine Many /hpf
[2023-06-01 12:58] LABS: Bacteria Mod /hpf; Red Blood Cells, Urine 0-2 /hpf (0-2)
[2023-06-01 15:38] VITALS: BP 107/55
[2023-06-01 20:27] VITALS: BP 123/63
[2023-06-02 02:45] VITALS: BP 125/62
[2023-06-02 07:21] VITALS: BP 145/70
[2023-06-02 10:53] LABS: SARS-Cov-2 (COVID-19) PCR, MMC NEGATIVE (NEGATIVE)
[2023-06-02] MEDS ORDERED: VISBIOME 112.51 EACH PO ×2 (12:30→12:31)
[2023-06-02] MEDS ORDERED: EC-NAPROSYN500 MG PO (12:31)
[2023-06-02] MEDS ORDERED: PANT40 PO (12:32)
== END 2023-06-02 16:00 | DRG 871 ==
LOC: ER 07:22 → MEDS 07:23 → ENPENDDIS 06-02 11:34 → MEDS 06-02 16:00
PROVIDERS: Emergency Medicine; Internal Medicine; ADMIT Student in an Organized Health Care Education/Training Program
DX: A41.9 Sepsis, unspecified organism (principal); J18.9 Pneumonia, unspecified organism; J96.01 Acute respiratory failure with hypoxia; J98.11 Atelectasis; I31.39 Other pericardial effusion (noninflammatory); I69.354 Hemiplegia and hemiparesis following cerebral infarction affecting left non-dominant side; J44.0 Chronic obstructive pulmonary disease with (acute) lower respiratory infection; I42.0 Dilated cardiomyopathy; I50.42 Chronic combined systolic (congestive) and diastolic (congestive) heart failure; K59.00 Constipation, unspecified; K29.70 Gastritis, unspecified, without bleeding; E11.9 Type 2 diabetes mellitus without complications; I11.0 Hypertensive heart disease with heart failure; R65.20 Severe sepsis without septic shock; I25.10 Atherosclerotic heart disease of native coronary artery without angina pectoris; M19.90 Unspecified osteoarthritis, unspecified site; Y95 Nosocomial condition; Z95.5 Presence of coronary angioplasty implant and graft; Z86.14 Personal history of Methicillin resistant Staphylococcus aureus infection; Z88.0 Allergy status to penicillin; Z88.2 Allergy status to sulfonamides; Z88.5 Allergy status to narcotic agent; Z88.8 Allergy status to other drugs, medicaments and biological substances; Z79.84 Long term (current) use of oral hypoglycemic drugs; Z79.4 Long term (current) use of insulin; Z79.891 Long term (current) use of opiate analgesic; Z87.891 Personal history of nicotine dependence; Z11.52 Encounter for screening for COVID-19
CPT/HCPCS: 0241U; 36415; 71045; 71250; 71260; 80048; 80053; 80069; 81001; 82947; 83605; 83615; 83735; 83880; 84145; 84484; 85025; 85027; 87040; 93005; 93010; 93306; 93922; 94640; 94664; 94760; 94762; 96365; 96366; 96374; 96375; 96376; 99285-25; A9270; G0378; J0295; J0456; J0696; J1815; J1885; J1940; J2405; J7050; Q9967; U0002

== ENCOUNTER 2023-06-11 21:04 | Inpatient (IN) | payer MEDICARE, OTHER ==
[~2023-06-11] VITALS: Ht 162.6 cm; Wt 69.6 kg
[~2023-06-11 21:04] MED LIST changes: +AMLODIPINE BESY10 MG PO; +AZIT250 PO; +Cyclobenzaprine5 MG PO; +DOCUZEN 8.6-501 EACH PO; +EC-NAPROSYN500 MG PO; +Fleet Enema132 ML PR; +GABA300 PO; +GUAI600T33 PO; +HYDROCODONE-AC1 EA19 PO; +JARDIANCE10 MG PO; +MS CONTIN3010 PO; +ONDA4 PO; +PANT40 PO
[2023-06-11 21:41] LABS: BASOPHILS ABSOLUTE AUTO 0.02 K/mm3 (0.00-0.23); BASOPHILS PERCENT AUTO 0 % (0-2); EOSINOPHILS ABSOLUTE AUTO 0.13 K/mm3 (0.00-0.68); EOSINOPHILS PERCENT AUTO 2 % (0-6); Hematocrit 40.9 % (33.0-51.0); Hemoglobin 13.1 g/dL (11.5-16.0); IMMATURE GRAN ABSOLUTE AUTO 0.02 K/mm3 (0.00-0.10); IMMATURE GRAN PERCENT AUTO 0 % (0-1); LYMPHOCYTES ABSOLUTE AUTO 1.67 K/mm3 (0.84-5.20); LYMPHOCYTES PERCENT AUTO 23 % (21-46); MONOCYTES ABSOLUTE AUTO 0.67 K/mm3 (0.16-1.47); MONOCYTES PERCENT AUTO 9 % (4-13); Mean Corpuscular HGB 28.2 pg (26.0-34.0); Mean Corpuscular Volume 88 fL (80-100); Mean Platelet Volume 9.5 fL (9.1-12.4); NEUTROPHILS ABSOLUTE AUTO 4.69 K/mm3 (1.96-9.15); NEUTROPHILS PERCENT AUTO 65 % (41-73); Platelet Count 245 K/mm3 (150-400); RDW Coefficient Variation 16.6 % (11.7-14.2); RDW Standard Deviation 53.1 fL (35.1-46.3); Red Blood Cell Count 4.65 M/mm3 (3.80-5.20)
[2023-06-11 22:05] LABS: Albumin, Blood 2.3 g/dL (3.4-5.0); Albumin/Globulin Ratio 0.4 (0.8-1.8); Bilirubin, Total 0.4 mg/dL (0.1-1.0); Calcium, Blood 8.4 mg/dL (8.5-10.1); Creatinine, Blood 0.42 mg/dL (0.40-1.00); Globulin, Blood 5.4 g/dL (2.2-4.0); Potassium, Blood 4.5 mmol/L (3.5-5.5); Total Protein, Blood 7.7 g/dL (6.4-8.2)
[2023-06-12] VITALS (7 sets, daily range): BP systolic 107–138; BP diastolic 60–78
[2023-06-12] MEDS ORDERED: Ondansetron HCl 2 MG / ML 2ML Vial IV PRN (00:10)
[2023-06-12] MEDS ORDERED: FLU VACC QS2023-24(6MOS UP)/PF 60 MCG/0.5 ML SYRINGE IM ONE (00:15)
[2023-06-12] MEDS ORDERED: Acetaminophen 325 MG TABLET PO PRN (00:15)
[2023-06-12] MEDS ORDERED: Furosemide 10 MG / ML 2ML Vial IV SCH (01:00)
[2023-06-12] MEDS ORDERED: Morphine Sulfate 4 MG/1 ML Injection IV PRN (01:25)
[2023-06-12] MEDS ORDERED: HYDROcodone 5-APAP 325 TAB PO PRN (02:05)
[2023-06-12] MEDS ORDERED: Albuterol 2.5 MG/3 ML VIAL INH PRN (02:10)
[2023-06-12] MEDS ORDERED: Magnesium Hydroxide Conc 10 ML UDC PO PRN (02:10)
[2023-06-12] MEDS ORDERED: PROAIR RESPICL90 MCG INH (02:45)
--- NOTE | 2023-06-12 03:21 | NUR ---
TRANSFER NOTE PT TRANSFERRED TO PCU 1 AT 0150. PT A&O. UNSURE OF SPECIFIC DATE BUT KNOWS MONTH/YEAR. UNSURE OF PRESIDENT BUT STATES THAT SHE DOES NOT KEEP UP WITH THE NEWS. PT WITH HX OF CVA, LEFT SIDED DEFICITS. ON 4L VIA NC, WHICH IS WHAT SHE WAS SENT TO [facility] WITH WHEN SHE WAS DISCHARGED ON 06/02. BP STABLE. DENIES SOB AT REST. STATES CHEST PAIN OCCASIONALLY WITH INSPIRATION. REPOSITIONED WITH PILLOWS TO COMFORT. BED IN LOWEST POSITION AND CALL LIGHT WITHIN REACH.
--- NOTE | 2023-06-12 05:35 | NUR ---
SHIFT SUMMARY SEE PREVIOUS NOTE. PT MEDICATED PER EMAR FOR CHEST PAIN WHILE TAKING A DEEP BREATH. VSS. REPOSITIONING Q2HRS. PUREWICK IN PLACE DRAINING YELLOW URINE. NO FURTHER CHANGES. BED IN LOWEST POSITION AND CALL LIGHT WITHIN REACH. THIS RN WILL REPORT TO ONCOMING DAYSHIFT RN.
[2023-06-12] MEDS ORDERED: Pantoprazole Sodium 40 MG Tab PO SCH (06:00)
[2023-06-12] MEDS ORDERED: Insulin Human Lispro 100 Units/ML 3ML Syringe SC SCH (07:30)
[2023-06-12] MEDS ORDERED: Docusate Sodium/Senna 1 Tab PO SCH (09:00)
[2023-06-12] MEDS ORDERED: Bisacodyl 5 MG TabEC PO SCH (09:00)
[2023-06-12] MEDS ORDERED: AmLODIPine Besylate 5 MG Tab PO SCH (09:00)
[2023-06-12] MEDS ORDERED: Aspirin 81 MG Chew PO SCH (09:00)
[2023-06-12] MEDS ORDERED: Gabapentin 300 MG Cap PO SCH (09:00)
[2023-06-12] MEDS ORDERED: GuaiFENesin 600 MG TabCR PO SCH (09:00)
[2023-06-12] MEDS ORDERED: Losartan Potassium 50 MG Tab PO SCH (09:00)
[2023-06-12] MEDS ORDERED: Insulin Glargine-Yfgn 100 Unit/mL 3 ML SYR SC SCH (09:00)
[2023-06-12] MEDS ORDERED: Lactobacil 2-S.Thermo-Bifido 1 1 Cap PO SCH (09:00)
[2023-06-12] MEDS ORDERED: Metoprolol Tartrate 25 MG Tab PO SCH (09:00)
[2023-06-12] MEDS ORDERED: Empagliflozin 10 MG TAB PO SCH (09:00)
[2023-06-12 10:32] LABS: International Normalized Ratio 1.18; Prothrombin Time Results 12.3 Sec (9.7-11.5)
--- NOTE | 2023-06-12 18:28 | NUR ---
SHIFT SUMMARY THE PT IS A&OX4, CALLS APPROPRAITELY, Q2 TURN, INC W/ A ASHU SET UP, TAKES HER MEDS IN APPLE SAUCE, ACHS, AND IS ON 4L NC W/ SP02 >95%. THE PT WAS SCHEUDLED FOR A THORACENTESIS TODAY BUT THEY OPTED NOT TO PROCEED BECAUSE THEY STATED THEIR WAS NOT ENOUGH FLUID TO PULL OFF OF THE PT. THE PT HAS BEEN RECIEVING IV LASIX TODAY. SHE HAS HAD SOME CHEST PAIN WHEN TAKING DEEP BREATHS AND HAS BEEN MEDICATED PER EMAR. NO ACUTE EVENTS SEE NOTES FOR ANY UPDATES. SEE NOTES FOR ANY UPDATES.
--- NOTE | 2023-06-12 19:25 | NUR ---
CODE PHRASE THAT THE PT NEEDS HELP HAVING HER "" LEAVE THE HOSPITAL "I NEED MY PUREWHICK CHECKED. " THIS IS A PHARSE THE PT CHOSE TO TELL STAFF IF SHE NEEDS HELP REMOVING HER FROM THE HOSPITAL. HER AND HER ARE SEPERATED, BUT SHE STILL WILL ALLOW HIM TO VISIT. SHE STATED THAT SHE CAN USUALLY GET HIM TO LEAVE BUT IF SHE NEEDS HELP SHE WOULD LIKE A PHRASE.
[2023-06-12] MEDS ORDERED: Cyclobenzaprine HCl 10 MG Tab PO SCH (21:00)
[2023-06-12] MEDS ORDERED: Atorvastatin 40 MG Tab PO SCH (21:00)
[2023-06-12] MEDS ORDERED: Mirtazapine 15 MG SoluTab PO SCH (21:00)
[2023-06-13 04:10] VITALS: BP 123/70
--- NOTE | 2023-06-13 05:06 | NUR ---
SHIFT SUMMARY PT ANXIOUS AND TEARFUL DURING THIS SHIFT. THIS RN SPOKE TO PT MULTIPLE TIMES ABOUT HER AND PERSONAL STRESSORS. PT APPEARS MORE CALM LATER IN THIS SHIFT. A&O X4. ABLE TO MAKE NEEDS KNOWN. NO NEW NEURO CHANGES NOTED; PT CONTINUES TO HAVE LEFT SIDED DEFICITS FROM PREVIOUS STROKE. REPOSITIONING Q2HRS. VSS. PUREWICK IN PLACE DRAINING YELLOW URINE. MEPILEX ON COCCYX. BED IN LOWEST POSITION AND CALL LIGHT WITHIN REACH. THIS RN WILL REPORT TO ONCOMING DAYSHIFT RN.
[2023-06-13 07:41] VITALS: BP 153/87
[2023-06-13 15:55] VITALS: BP 134/67
--- NOTE | 2023-06-13 17:54 | NUR ---
SHIFT SUMMARY; ASSUMED CARE AT 0700. A/A/OX4. LEFT SIDE FLACCID FROM PREVIOUS CVA, BILATERAL LEG CONTRACTORS. 4L 02 VIA NC, VSS. REPEAT CT TODAY. Q 2 TURNS, HEELS FLOATED T/O SHIFT. PURWICK TO WALL SUCTION. FEEDS SELF TODAY, PAIN MEDS PER EMAR. NO ACUTE MEDICAL CHANGES, WILL CONTINUE TOMONITOR AND TREAT UNTIL CHANGE OF SHIFT.
[2023-06-13 21:03] VITALS: BP 126/72
[2023-06-14 04:26] VITALS: BP 128/68
[2023-06-14 05:05] LABS: Hemoglobin 11.3 g/dL (11.5-16.0); Mean Corpuscular HGB 27.6 pg (26.0-34.0); Mean Corpuscular HGB Conc 31.4 g/dL (31.5-36.5); Mean Corpuscular Volume 88 fL (80-100); Mean Platelet Volume 9.2 fL (9.1-12.4); Platelet Count 282 K/mm3 (150-400); RDW Coefficient Variation 15.7 % (11.7-14.2); RDW Standard Deviation 50.4 fL (35.1-46.3); White Blood Cell Count 3.79 K/mm3 (4.00-11.30)
[2023-06-14 05:24] LABS: Albumin, Blood 2.3 g/dL (3.4-5.0); Anion Gap 0 mmol/L (6-16); Blood Urea Nitrogen 16 mg/dL (8-24); Bun/Creatinine Ratio 40.1 (12.0-20.0); CO2, Blood 34 mmol/L (21-32); Calcium, Blood 8.5 mg/dL (8.5-10.1); Chloride, Blood 105 mmol/L (98-108); Glomerular Filtration Rate 107 (60-); Glucose, Blood 196 mg/dL (70-99); Magnesium, Blood 2.4 mg/dL (1.6-2.4); Phosphorus, Blood 2.8 mg/dL (2.5-4.9); Potassium, Blood 3.8 mmol/L (3.5-5.5); Sodium, Blood 139 mmol/L (136-145)
--- NOTE | 2023-06-14 06:06 | NUR ---
End of shift note. Pt has been restless much of the shift, frequent use of call light for repositioning, snack and bed adjustments. Pt has been repositioned frequently. Pain meds given per MAR Periwick is in place, draining yellow urine. Pt remains on 4L supplemental O2. Some pleuric pain noted. Pt is able to make needs known, call light is within reach.
[2023-06-14 07:39] VITALS: BP 130/76
--- NOTE | 2023-06-14 13:32 | NUR ---
Upon receiving a referral for spiritual care, I visited with the patient. She is very emotional as she talks about the decline in her SO, Bill's health and a horrible shift in his level of anger and frustration. She tells me about the poor financial, relational and health related choices he has been making. She also shares about her strong belief in God and her choice to embrace people and her Jew cate while suffering loss and limitations. She asks me to pray for Gian, which I gladly do as well as providing theological insights, therapeutic listening and a calming presence. Patient responded well and showed signs of reduced stress and greater emotional stability. I will continue to remain available to patient and family.
[2023-06-14] MEDS ORDERED: LACT10SY PO (13:38)
[2023-06-14 15:33] VITALS: BP 132/69
--- NOTE | 2023-06-14 17:46 | NUR ---
SHIFT SUMMARY; ASSUMED CARE AT 0700. A/A/0X4. SLEEPS MOST OF DAY ON RIGHT SIDE. ATTEMPTED Q2 TURNS AND REPOSITIONING, REFUSED TURNS MOST OF DAY. HEELS FLOATED DURING SHIFT. USES CALL LIGHTS AND CAN MAKE NEEDS KNOWN. APPEARS WITHDRAWN T/O SHIFT. 1L 02 VIA IL, VSS. MOONWICK IN PLACE. NO ACUTE MEDICAL CHANGES, WILL CONTINUE TO MONITOR AND TREAT UNTIL CHANGE OF SHIFT.
[2023-06-14 20:35] VITALS: BP 143/78
[2023-06-15 05:29] VITALS: BP 144/84
--- NOTE | 2023-06-15 06:08 | NUR ---
End of shift note. Pt has been restless much of the shift, frequent use of call light for repositioning, snack and bed adjustments. Pt has been repositioned frequently. Pain meds given per MAR. Pt reported being very anxious and was crying for the first half the shift. Pt was mostly upset that her was not returning her phone calls. Purwick is in place, draining yellow urine. Pt remains on 1-2L supplemental O2. Room air trial 87-92 while asleep. Pt is able to make needs known, call light is within reach.
[2023-06-15 07:30] VITALS: BP 154/73
[2023-06-15 11:22] LABS: SARS-Cov-2 (COVID-19) PCR, MMC NEGATIVE (NEGATIVE)
[2023-06-15] MEDS ORDERED: HUMALOG KW100 UNIT/1 SC (12:23)
[2023-06-15] MEDS ORDERED: BASAGLAR K100 UNIT/6 SC (12:23)
--- NOTE | 2023-06-15 14:07 | NUR ---
DISCHARGED BACK TO [facility], REPORT GIVEN TO ALBERTO LINARES.
== END 2023-06-15 13:40 | DRG 189 ==
LOC: ER 21:04 → MEDS 06-12 00:09 → PCU 06-12 00:09
PROVIDERS: Emergency Medicine; Internal Medicine; ADMIT Internal Medicine
DX: J96.01 Acute respiratory failure with hypoxia (principal); J98.11 Atelectasis; J90 Pleural effusion, not elsewhere classified; I50.32 Chronic diastolic (congestive) heart failure; I69.354 Hemiplegia and hemiparesis following cerebral infarction affecting left non-dominant side; J44.9 Chronic obstructive pulmonary disease, unspecified; I11.0 Hypertensive heart disease with heart failure; F15.90 Other stimulant use, unspecified, uncomplicated; G89.29 Other chronic pain; I25.10 Atherosclerotic heart disease of native coronary artery without angina pectoris; F32.A Depression, unspecified; F17.200 Nicotine dependence, unspecified, uncomplicated; M19.90 Unspecified osteoarthritis, unspecified site; E11.65 Type 2 diabetes mellitus with hyperglycemia; Z11.52 Encounter for screening for COVID-19; Z88.0 Allergy status to penicillin; Z88.2 Allergy status to sulfonamides; Z88.5 Allergy status to narcotic agent; Z88.8 Allergy status to other drugs, medicaments and biological substances; Z79.4 Long term (current) use of insulin; Z79.82 Long term (current) use of aspirin; Z79.891 Long term (current) use of opiate analgesic; Z86.14 Personal history of Methicillin resistant Staphylococcus aureus infection; Z95.5 Presence of coronary angioplasty implant and graft; Z79.84 Long term (current) use of oral hypoglycemic drugs; Z79.1 Long term (current) use of non-steroidal anti-inflammatories (NSAID)
CPT/HCPCS: 36415; 71045; 71260; 76604; 80053; 80069; 82947; 83735; 84145; 84484; 85025; 85027; 85610; 85730; 93005; 93010; 94760; 96374; 99285-25; A9270; J1815; J1940; J2270; Q9967; U0002

== ENCOUNTER 2024-04-04 13:52 | Inpatient (IN) | payer MEDICARE, OTHER ==
[~2024-04-04] VITALS: Ht 162.6 cm; Wt 76.2 kg
[~2024-04-04 13:52] MED LIST changes: +BASAGLAR K100 UNIT/6 SC; +LEVO750 PO; +LOSARTAN POTAS100 M1 PO; +PROAIR RESPICL90 MCG INH
[2024-04-04 14:20] LABS: BASOPHILS ABSOLUTE AUTO 0.02 K/mm3 (0.00-0.23); BASOPHILS PERCENT AUTO 0 % (0-2); EOSINOPHILS PERCENT AUTO 0 % (0-6); Hematocrit 39.7 % (33.0-51.0); Hemoglobin 12.8 g/dL (11.5-16.0); IMMATURE GRAN ABSOLUTE AUTO 0.03 K/mm3 (0.00-0.10); IMMATURE GRAN PERCENT AUTO 0 % (0-1); LYMPHOCYTES ABSOLUTE AUTO 0.78 K/mm3 (0.84-5.20); LYMPHOCYTES PERCENT AUTO 10 % (21-46); MONOCYTES ABSOLUTE AUTO 0.55 K/mm3 (0.16-1.47); MONOCYTES PERCENT AUTO 7 % (4-13); Mean Corpuscular HGB Conc 32.2 g/dL (31.5-36.5); Mean Corpuscular Volume 93 fL (80-100); Mean Platelet Volume 9.5 fL (9.1-12.4); NEUTROPHILS ABSOLUTE AUTO 6.28 K/mm3 (1.96-9.15); NEUTROPHILS PERCENT AUTO 82 % (41-73); Platelet Count 160 K/mm3 (150-400); RDW Coefficient Variation 14.2 % (11.7-14.2); RDW Standard Deviation 48.6 fL (35.1-46.3); Red Blood Cell Count 4.26 M/mm3 (3.80-5.20); White Blood Cell Count 7.66 K/mm3 (4.00-11.30)
[2024-04-04] MEDS ORDERED: Cefepime HCl 2,000 MG in NS 100 ML IV ONE (14:25)
[2024-04-04] MEDS ORDERED: NS 1,000 ML IV SCH ×2 (14:25→16:50)
[2024-04-04 14:28] LABS: Source, Urine Straight Cath
[2024-04-04 14:38] LABS: Albumin, Blood 2.3 g/dL (3.4-5.0); Albumin/Globulin Ratio 0.6 (0.8-1.8); Bilirubin, Total 0.7 mg/dL (0.1-1.0); Bun/Creatinine Ratio 30.8 (12.0-20.0); Calcium, Blood 8.2 mg/dL (8.5-10.1); Creatinine, Blood 0.62 mg/dL (0.40-1.00); Globulin, Blood 3.6 g/dL (2.2-4.0); Total Protein, Blood 5.9 g/dL (6.4-8.2)
[2024-04-04 14:41] LABS: Appearance, Urine Cloudy (Clear); Blood, Urine 5+ (Neg); Color, Urine Amber (P-Yellow); Glucose Qualitative, Urine 3+ (Neg); Ketones, Urine 1+ (Neg); Leukocyte Esterase, Urine 3+ (Neg); Nitrite, Urine Neg (Neg); Protein, Urine 3+ (Neg); Urobilinogen, Urine 2+ (Normal)
[2024-04-04 14:50] LABS: Bilirubin, Urine 1+ (Neg)
[2024-04-04 14:51] LABS: White Blood Cells, Urine TNTC /hpf (0-5)
[2024-04-04 14:52] LABS: Bacteria Many /hpf; Squamous Epithelial Cells Mod /hpf (Few)
[2024-04-04 14:53] LABS: Yeast/Fungi Urine Many /hpf
[2024-04-04] MEDS ORDERED: BACL10 PO (14:54)
[2024-04-04 14:55] LABS: Transitional Epithelial Cells Rare /hpf (0-Rare)
[2024-04-04] MEDS ORDERED: MELA3 PO (14:55)
[2024-04-04] MEDS ORDERED: SERT100 PO (14:56)
[2024-04-04] MEDS ORDERED: BISA10S PR (14:58)
[2024-04-04 16:08] LABS: Influenza A, PCR NEGATIVE (NEGATIVE); Influenza B, PCR NEGATIVE (NEGATIVE); Resp Syncytial Virus, PCR NEGATIVE (NEGATIVE); SARS-Cov-2 (COVID-19) PCR, MMC NEGATIVE (NEGATIVE)
[2024-04-04] MEDS ORDERED: Lactated Ringer's 1,000 ML IV SCH (18:00)
[2024-04-04] MEDS ORDERED: FLU VACC TS2024-25(6MOS UP)/PF 45 MCG/0.5 ML SYRINGE IM SCH (18:00)
[2024-04-04] MEDS ORDERED: Ondansetron HCl 2 MG / ML 2ML Vial IV PRN (18:00)
[2024-04-04] MEDS ORDERED: Albuterol HFA200 ACT/6.7 GM INH INH PRN (18:15)
[2024-04-04] MEDS ORDERED: Lactobacil 2-S.Thermo-Bifido 1 1 Cap PO SCH (21:00)
[2024-04-04] MEDS ORDERED: Melatonin 3 MG Tab PO SCH (21:00)
[2024-04-04] MEDS ORDERED: Atorvastatin 40 MG Tab PO SCH (21:00)
[2024-04-04] MEDS ORDERED: CefTRIAXone Sodium 1,000 MG in NS 100 ML IV SCH (22:00)
[2024-04-04] MEDS ORDERED: NS 250 ML IV PRN (22:10)
[2024-04-04] MEDS ORDERED: Azithromycin 500 MG in NS 250 ML IV SCH (22:22)
[2024-04-05 00:21] VITALS: BP 107/58
[2024-04-05] MEDS ORDERED: OxyCODONE HCL 5 MG TAB PO PRN (00:35)
[2024-04-05] MEDS ORDERED: Acetaminophen 325 MG TABLET PO SCH (04:00)
[2024-04-05 04:16] VITALS: BP 134/65
--- NOTE | 2024-04-05 07:00 | NUR ---
PT STABLE THROUGHOUT THE SHIFT. PT AOX3 AND ON 2-4L O2 TO MAINTAIN SAT AT OR ABOVE 92%. PT DID C/O OF PAIN TO BACK AND HIPS AND WAS MEDICATED FOR THAT WITH MINIMAL EFFECT. PT NOT CURRENTLY ON HOME MEDS FOR CHRONIC PAIN. MED LIST WAS UPDATED DURING ADMIT AND REVIEW WAS REQUESTED FOR PT TO BE ON HOME MEDS WITH CONCERN ABOUT WITHDRAWAL. PT NEURO STATUS REMAINS UNCHANGED, LEFT HEMIPARESIS FROM OLD CVA UNCHANGED. PT IS ABLE TO MOVE RIGHT ARM AND DOES ATTEMPT TO DRINK BUT REQUIRES ASSIST AT THIS TIME. RIGHT LEG IS LIMITED IN MOBILITY. PT WAS PLACED ON PUREWICK IN ED AND THAT WAS CONTINUED TO THE FLOOR WITH NINA URINE WITH SEDIMENT PRESENT. PT IS TOLERATING IV ABX AND FLUIDS WELL.
[2024-04-05] MEDS ORDERED: Insulin Human Lispro 100 Units/ML 3ML Syringe SC SCH (07:30)
[2024-04-05 07:33] VITALS: BP 110/59
[2024-04-05] MEDS ORDERED: Insulin Glargine-Yfgn 100 Unit/mL 3 ML SYR SC SCH (09:00)
[2024-04-05] MEDS ORDERED: Enoxaparin 40 MG/0.4 ML SYR SC SCH (09:00)
[2024-04-05] MEDS ORDERED: Aspirin 81 MG Chew PO SCH (09:00)
[2024-04-05] MEDS ORDERED: Sertraline HCl 100 MG Tab PO SCH (09:00)
[2024-04-05 10:03] LABS: BASOPHILS ABSOLUTE AUTO 0.01 K/mm3 (0.00-0.23); BASOPHILS PERCENT AUTO 0 % (0-2); EOSINOPHILS ABSOLUTE AUTO 0.04 K/mm3 (0.00-0.68); EOSINOPHILS PERCENT AUTO 1 % (0-6); Hematocrit 38.5 % (33.0-51.0); Hemoglobin 12.4 g/dL (11.5-16.0); IMMATURE GRAN ABSOLUTE AUTO 0.02 K/mm3 (0.00-0.10); IMMATURE GRAN PERCENT AUTO 0 % (0-1); LYMPHOCYTES ABSOLUTE AUTO 0.96 K/mm3 (0.84-5.20); LYMPHOCYTES PERCENT AUTO 15 % (21-46); MONOCYTES ABSOLUTE AUTO 0.46 K/mm3 (0.16-1.47); MONOCYTES PERCENT AUTO 7 % (4-13); Mean Corpuscular HGB Conc 32.2 g/dL (31.5-36.5); Mean Corpuscular Volume 93 fL (80-100); Mean Platelet Volume 9.7 fL (9.1-12.4); NEUTROPHILS PERCENT AUTO 77 % (41-73); Platelet Count 148 K/mm3 (150-400); RDW Coefficient Variation 14.4 % (11.7-14.2); Red Blood Cell Count 4.14 M/mm3 (3.80-5.20); White Blood Cell Count 6.39 K/mm3 (4.00-11.30)
[2024-04-05 10:26] LABS: Albumin, Blood 2.2 g/dL (3.4-5.0); Albumin/Globulin Ratio 0.6 (0.8-1.8); Bilirubin, Total 0.6 mg/dL (0.1-1.0); Bun/Creatinine Ratio 37.3 (12.0-20.0); Calcium, Blood 8.1 mg/dL (8.5-10.1); Creatinine, Blood 0.48 mg/dL (0.40-1.00); Globulin, Blood 3.5 g/dL (2.2-4.0); Magnesium, Blood 2.2 mg/dL (1.6-2.4); Potassium, Blood 3.7 mmol/L (3.5-5.5); Total Protein, Blood 5.7 g/dL (6.4-8.2)
[2024-04-05] MEDS ORDERED: Albuterol 2.5 MG/3 ML VIAL INH PRN (11:55)
[2024-04-05 12:35] VITALS: BP 127/62
[2024-04-05] MEDS ORDERED: Methylnaltrexone Bromide 12 MG/0.6 ML Injection SC SCH (13:00)
[2024-04-05] MEDS ORDERED: HYDROcodone 5-APAP 325 TAB PO PRN (13:05)
[2024-04-05] MEDS ORDERED: CALCIUM GLUC IN NACL, ISO-OSM 100 ML IV ONE (13:05)
[2024-04-05] MEDS ORDERED: Naloxegol Oxalate 12.5 MG Tab PO SCH (14:00)
--- NOTE | 2024-04-05 15:35 | NUR ---
DR. SHULTZ CALLED ABOUT PT'S EXTRA LARGE LOOSE BOWEL MOVEMENT AND NAUSEA AFTER RECEIVING MOVANTIK. DR. SHULTZ STATES HE WOULD REDUCE THE DOSE. WHILE ON THE PHONE THE CONCERN OF THE PT'S SCHEDULED TYLENOL WAS DISCUSSED. THE PT HAS Q5 SCHEDULED TYLENOL AND HAS PRN NORCO. THE PT WILL RECIEVE >4,000MG OF TYLENOL WITH THE CURRENT PAIN MEDICATION REGIMINE. HE STATED HE WOULD MAKE ADJUSTMENTS.
[2024-04-05] MEDS ORDERED: MetroNIDAZOLE 500MG/NS 100 ml 100 ML IV SCH (16:00)
[2024-04-05 16:16] VITALS: BP 155/73
[2024-04-05] MEDS ORDERED: Acetaminophen 325 MG TABLET PO PRN (16:35)
[2024-04-05] MEDS ORDERED: Metoclopramide HCl 5MG / ML 2ML Vial IV PRN (16:40)
--- NOTE | 2024-04-05 16:49 | NUR ---
Pt states her "stomach hurts so bad". Given reglan IV at this time, per PRN orders. Bladder scan in progress at beside.
--- NOTE | 2024-04-05 17:51 | NUR ---
SHIFT SUMMARY PT IS A&OX3-4, AND IS FORGETFUL AT TIMES. 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 THE PT HAS LEFT SIDED DEFICIT R/T PAST CVA. THE PT HAS BEEN C/O NEW NUMBNESS ON THE LEFT SIDE OF HER FACE, LEFT ARM, AND RIGHT LEG. PROVIDERS AWARE AND ASSESSED THE PT. THE COMPLAINT STARTED 12 ACCORDING TO THE PT. SHE HAS NO MOVEMENT ON THE LEFT SIDE OF HER BODY AND HAS LEFT HAND CONTRACTURES. THE PT IS ON A SUPERVISED SOFT BITE SIZED DIET. SHE TAKES HER MEDICATIONS W/ APPLE SAUCE . T/O THE DAY SHE HAS BEEN C/O PAIN IN HER NECK, BACK , HIPS, AND TAILBONE. SHE IS BEING MEDICATED PER EMAR, AND REPOSITIONED A MINIMUM OF Q2 HOURS. THE PT HAS A PURWICK SET UP TO SUCTION, POOR OUTPUT. PT WAS BLADDER SCANNED AND 220CC S NOTED. THIS WAS DISCUSSED WITH DR. SHULTZ.. THE PT HAD ONE EXTRA LARGE LOOSE BM AND SOME NAUSEA, SEE PREVIOUS NOTE FOR DETAILS. BED IN LOW, CALL LIGHT IN REACH. SEE NOTES FOR ANY UPDATES
[2024-04-05 20:51] VITALS: BP 155/88
[2024-04-05] MEDS ORDERED: Morphine Sulfate 15 MG TABCR PO SCH (21:00)
[2024-04-05] MEDS ORDERED: HyDROXyzine HCl 25 MG Tab PO ONE (22:20)
[2024-04-06 03:32] VITALS: BP 164/85
[2024-04-06 04:25] LABS: BASOPHILS ABSOLUTE AUTO 0.01 K/mm3 (0.00-0.23); BASOPHILS PERCENT AUTO 0 % (0-2); EOSINOPHILS ABSOLUTE AUTO 0.01 K/mm3 (0.00-0.68); EOSINOPHILS PERCENT AUTO 0 % (0-6); Hematocrit 41.2 % (33.0-51.0); Hemoglobin 13.6 g/dL (11.5-16.0); IMMATURE GRAN ABSOLUTE AUTO 0.03 K/mm3 (0.00-0.10); IMMATURE GRAN PERCENT AUTO 0 % (0-1); LYMPHOCYTES ABSOLUTE AUTO 0.84 K/mm3 (0.84-5.20); LYMPHOCYTES PERCENT AUTO 12 % (21-46); MONOCYTES ABSOLUTE AUTO 0.37 K/mm3 (0.16-1.47); MONOCYTES PERCENT AUTO 5 % (4-13); Mean Corpuscular HGB 29.8 pg (26.0-34.0); Mean Corpuscular Volume 90 fL (80-100); Mean Platelet Volume 9.9 fL (9.1-12.4); NEUTROPHILS ABSOLUTE AUTO 5.53 K/mm3 (1.96-9.15); NEUTROPHILS PERCENT AUTO 82 % (41-73); Platelet Count 162 K/mm3 (150-400); RDW Coefficient Variation 13.8 % (11.7-14.2); RDW Standard Deviation 45.9 fL (35.1-46.3); Red Blood Cell Count 4.57 M/mm3 (3.80-5.20); White Blood Cell Count 6.79 K/mm3 (4.00-11.30)
[2024-04-06 05:13] LABS: Calcium, Blood 7.9 mg/dL (8.5-10.1); Creatinine, Blood 0.38 mg/dL (0.40-1.00); Potassium, Blood 3.3 mmol/L (3.5-5.5)
--- NOTE | 2024-04-06 05:58 | NUR ---
PREPRESS OPERATOR RESIDENT NOTIFIED PT CALCIUM 7.9 AND POTASSIUM 3.3, RESIDENT WILL PLACE ORDERS.
--- NOTE | 2024-04-06 05:59 | NUR ---
SHIFT SUMMARY NOC PT A/O X 3-4. VSS. EXTREMELY FORGETFUL. USES CALL LIGHT INAPPROPRIATELY EVERY 10 MINUTES FOR REPOSITIONING. PT WAS TOLD MULTIPLE TIMES THAT ROUNDING IS Q2H , BUT STILL IS BIOPSYCHOLOGIST LIGHT. PT PAIN BEING MANAGED PER EMAR. ON O2 3L/NC SPO2 >92% ON CONTINOUS SPO2 MONITOR. PT HAS C/O OF NAUSEA AND GIVEN ZOFRAN. PT WAS HIGHLY ANXIOUS AND GIVEN ONE TIME DOSE OF ATARAX 50 MG WITH LITTLE EFFECT. PT ON CONTINOUS CARDIAC MONITORING IN 90'S. PT HAD C/O OF NOT FEELING WELL FROM PRIOR DOSE OF NALOXEGOL GIVEN DURING DAY FOR OPIOD INDUCED CONSTIPATION. PT HAS SINCE REPORTED FEELING BETTER NOW THAT RX HAS CLEARED SYSTEM. PT HAS HAD 2 LOOSE INC BM DURING SHIFT. HAS PUREWICK IN PLACE FOR INCONTINENCE. PT BLADDER SCANNED RETAINING 300 ML. POTASSIUM 3.3 AND 20 MEQ PO ORDERED. LR INFUSING @ 100 ML/HR. PT CURRENTLY RESTING WITH BED IN LOWEST POSITION, AND CALL LIGHT WITHIN REACH.
[2024-04-06] MEDS ORDERED: Potassium Chloride 20 MEQ/15 ML UDC PO ONE (06:00)
[2024-04-06] MEDS ORDERED: Losartan Potassium 50 MG Tab PO SCH (07:00)
[2024-04-06 07:36] VITALS: BP 150/66
[2024-04-06] MEDS ORDERED: Ergocalciferol 50000 Intn'l Units PO SCH (09:00)
[2024-04-06 12:19] VITALS: BP 138/79
--- NOTE | 2024-04-06 15:26 | NUR ---
PT'S DAUGHTER CALLED AND NOTIFIED OF THE PT'S HOSPITALIZATION. UPDATED ON CARE PER PT REQUEST.
[2024-04-06 15:43] VITALS: BP 127/59
--- NOTE | 2024-04-06 17:05 | NUR ---
SHIFT SUMMARY PT IS A&OX3-4, REMAINS FORGETFUL AT TIMES. 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 THE PT HAS LEFT SIDED DEFICIT R/T PAST CVA. THE PT HAS BEEN COMPLAINING OF PAIN AND HAS BEEN MEDICATED PER EMAR AND FREQUENTLY REPOSITIONED. HER STOMACH HAS BEEN UPSETTING HER SINCE . AFTERNOON. SHE HAS BEEN MEDICATED WITH REGLAN AND ZOFRAN PER EMAR. HER APPETITE HAS BEEN POOR AND HER BLOOD SUGARS HAVE BEEN IN THE 70 S MAJORITY OF THE DAY. WE HAVE BEEN PRESSING JUICES AND ENSURES. DINNER CBG CHECK WAS 158 AND HER INSULIN WAS HELD. THIS WAS DISCUSSED W/ DR. IBANEZ. THE PT IS ON A SUPERVISED SOFT BITE SIZED DIET. SHE TAKES HER MEDICATIONS W/ APPLE SAUCE . THE PT HAS A PURWICK SET UP TO SUCTION, POOR OUTPUT BUT IMPROVED SINCE 04/05. THIS WAS DISCUSSED WITH DR. SHULTZ DURING MORNING ROUNDS. SEE PREVIOUS NOTE FOR DETAILS. BED IN LOW, CALL LIGHT IN REACH. SEE NOTES FOR ANY UPDATES
--- NOTE | 2024-04-06 17:47 | NUR ---
PT'S CARI SAMUEL NOTIFIED THAT THE PT WILL BE TRANSFERING TO ROOM 327.
--- NOTE | 2024-04-06 18:43 | NUR ---
PT TRANSFERRED FROM U, ORIENTED TO ROOM. ANA REPLACED. CALL LIGHT IN REACH
[2024-04-06 19:51] VITALS: BP 152/67
--- NOTE | 2024-04-06 23:10 | NUR ---
Call to pharmacy; Confirmed Metronidazole is compatible with LR.
[2024-04-07 02:51] VITALS: BP 152/66
--- NOTE | 2024-04-07 05:30 | NUR ---
SHIFT SUMMARY PATIENT IS ALERT AND ORIENTED. PATIENT HAS HAD NO ACUTE EVENTS THIS SHIFT. VITAL SIGNS REVIEWED. PATIENT HAS REPORTED GENERALIZED PAIN THIS SHIFT. PATIENT HAS COMPLAINED OF NAUSEA THIS SHIFT AND MEDICATED PER EMAR. PATIENT HAS REPORTED NO SOB, OR VOMITTING THIS SHIFT. PATIENT HAS BEEN HEAVY ACCOUNTS RECEIVABLE ADMINISTRATOR LIGHT FOR LITTLE THINGS OFTEN. PATIENT TURNED EVERY TIME PATIENT CALLED. PUREWICK IN PLACE. BED IN LOCKED AND LOWEST POSITION. CALL LIGHT IN PLACE.
[2024-04-07 07:09] VITALS: BP 156/69
[2024-04-07] MEDS ORDERED: Losartan Potassium 50 MG Tab PO SCH ×2 (08:00)
[2024-04-07] MEDS ORDERED: Insulin Glargine-Yfgn 100 Unit/mL 3 ML SYR SC SCH (09:00)
[2024-04-07 09:15] LABS: BASOPHILS ABSOLUTE AUTO 0.02 K/mm3 (0.00-0.23); BASOPHILS PERCENT AUTO 0 % (0-2); EOSINOPHILS PERCENT AUTO 2 % (0-6); Hematocrit 42.9 % (33.0-51.0); Hemoglobin 14.3 g/dL (11.5-16.0); IMMATURE GRAN PERCENT AUTO 0 % (0-1); LYMPHOCYTES ABSOLUTE AUTO 0.94 K/mm3 (0.84-5.20); LYMPHOCYTES PERCENT AUTO 21 % (21-46); MONOCYTES ABSOLUTE AUTO 0.38 K/mm3 (0.16-1.47); MONOCYTES PERCENT AUTO 8 % (4-13); Mean Corpuscular HGB 30.1 pg (26.0-34.0); Mean Corpuscular HGB Conc 33.3 g/dL (31.5-36.5); Mean Corpuscular Volume 90 fL (80-100); Mean Platelet Volume 9.4 fL (9.1-12.4); NEUTROPHILS ABSOLUTE AUTO 3.15 K/mm3 (1.96-9.15); NEUTROPHILS PERCENT AUTO 69 % (41-73); Platelet Count 171 K/mm3 (150-400); RDW Coefficient Variation 13.7 % (11.7-14.2); RDW Standard Deviation 46.1 fL (35.1-46.3); Red Blood Cell Count 4.75 M/mm3 (3.80-5.20); White Blood Cell Count 4.59 K/mm3 (4.00-11.30)
[2024-04-07 09:43] LABS: Bun/Creatinine Ratio 21.1 (12.0-20.0); Calcium, Blood 7.7 mg/dL (8.5-10.1); Creatinine, Blood 0.33 mg/dL (0.40-1.00); Potassium, Blood 3.3 mmol/L (3.5-5.5)
[2024-04-07] MEDS ORDERED: Morphine Sulfate 15 MG TABCR PO ONE (13:00)
--- NOTE | 2024-04-07 16:08 | NUR ---
Met with pt for goals of care, pain assessment. The patient tells me her 3 months ago, and she is still grieving his passing. She states she has been living at [facility] for "quite a while", even before her passed. She has history of CVA with L side deficit. She is here with pneumonia after c/o dyspnea and weakness for 7 days, and poor appetite for 2 weeks. She was hypotensive in the ED, but improved with fluids. Pt has history of chronic pain. She was restarted today on her usual dose of MS Contin 30mg twice daily and [place] 5/325mg 1 tab every 6 hours as needed. Pain remained uncontrolled. Physician will add breakthrough roxanol for tonight, re-evaluate in the morning. POLST: Pt reviewed, signed DNR POLST. Plan to follow up with her in the morning.
[2024-04-07] MEDS ORDERED: Morphine Sulfate 20 MG/1ML 1 ML Oral Syringe PO PRN (16:15)
[2024-04-07 16:35] VITALS: BP 148/79
--- NOTE | 2024-04-07 17:34 | NUR ---
REPORT RECEIVED VERIFIED PT A/O AND IN A LOT OF PAIN, IT HAS BEEN DIFFICULT TO CONTROL PAIN THIS MORNING AND ATTEMPS TO REPOSITION TO FIND RELIEF HAVE BEEN UNSUCCESSFUL. PT WAS PLACED IN RECLYNER VIA HOIST LIFT BUT QUICKLY WANTED TO BE PLACED BACK IN BED. MD WAS MADE AWARE AND IS MAKING CHANGES TO MATCH PT HOME CARE REGIMEN.
--- NOTE | 2024-04-07 17:40 | NUR ---
PT VERY TEARFUL AND IS OFTEN REASURRED BY HAVING ME AT BEDSIDE, BUT IS STILL C/O SEVER PAIN. PALATIVE CARE WAS MADE AWARE WELL MD AND BOTH ARE TO MEET UP WITH PT TO DISCUSS OPTIONS.
--- NOTE | 2024-04-07 17:42 | NUR ---
PALATIVE CARE DISCUSSED WITH PT HER OPTION AND NEW MEDICATION WAS ORDERED AND IMPLEMENTED. NEW MEDICATION SEEMED TO HELP PT FOR NOW, PAIN SO FAR IS TOLERABLE
[2024-04-07] MEDS ORDERED: Morphine Sulfate 30 MG TabCR PO SCH (21:00)
[2024-04-08 03:12] VITALS: BP 148/75
--- NOTE | 2024-04-08 04:04 | NUR ---
SHIFT SUMMARY PT ALERT ORIENTED BUT FORGETFUL. CALLS OUT FREQUESNTLY WITH HER CALL LIGHT. SHE KEPT WANTING TO SIT UP ON THE SIDE OF BED AND WHEN WE WOULD SIT HER UP SHE WOULD BE IN ALOT OF PAIN AND HAD TO BE LAID RIGHT BACK DOWN. VSS ON O2 AT 2L SATTING AT 98%. REMAINS ON A CONTINUOUS PULSE OX. BP GOOD THIS SHIFT. C/O GENERALIZED PAIN MEDICATED WITH MS CONTIN AND ROXANOL. SHE SLEPT MOST OF THE SHIFT AFTER BEING MEDICATED. REMAINS ON FLAGYL Q8HR AND ROCEPHIN Q24HR ORDERED FOR UTI. SHE HAD A PUREWICK IN PLACE AT START OF SHIFT BUT WE REMOVED IT BECAUSE IT WASNT WORKING FOR HER. SHES INC OF B&B. REMAINS ON LR AT 100. NO C/O NAUSEA THIS SHIFT. SLEEPING IN BED AT THIS TIME WITH CALL LIGHT IN REACH
[2024-04-08 06:04] LABS: BASOPHILS ABSOLUTE AUTO 0.03 K/mm3 (0.00-0.23); BASOPHILS PERCENT AUTO 1 % (0-2); EOSINOPHILS ABSOLUTE AUTO 0.11 K/mm3 (0.00-0.68); EOSINOPHILS PERCENT AUTO 2 % (0-6); Hematocrit 41.1 % (33.0-51.0); Hemoglobin 13.4 g/dL (11.5-16.0); IMMATURE GRAN ABSOLUTE AUTO 0.01 K/mm3 (0.00-0.10); IMMATURE GRAN PERCENT AUTO 0 % (0-1); LYMPHOCYTES ABSOLUTE AUTO 1.51 K/mm3 (0.84-5.20); LYMPHOCYTES PERCENT AUTO 32 % (21-46); MONOCYTES ABSOLUTE AUTO 0.55 K/mm3 (0.16-1.47); MONOCYTES PERCENT AUTO 12 % (4-13); Mean Corpuscular HGB 30.1 pg (26.0-34.0); Mean Corpuscular HGB Conc 32.6 g/dL (31.5-36.5); Mean Corpuscular Volume 92 fL (80-100); Mean Platelet Volume 9.3 fL (9.1-12.4); NEUTROPHILS PERCENT AUTO 53 % (41-73); Platelet Count 143 K/mm3 (150-400); RDW Coefficient Variation 13.7 % (11.7-14.2); RDW Standard Deviation 46.6 fL (35.1-46.3); Red Blood Cell Count 4.45 M/mm3 (3.80-5.20); White Blood Cell Count 4.71 K/mm3 (4.00-11.30)
[2024-04-08 06:36] LABS: Bun/Creatinine Ratio 15.4 (12.0-20.0); Calcium, Blood 7.7 mg/dL (8.5-10.1); Creatinine, Blood 0.33 mg/dL (0.40-1.00); Potassium, Blood 3.3 mmol/L (3.5-5.5)
[2024-04-08 07:34] VITALS: BP 157/76
[2024-04-08 15:26] VITALS: BP 172/74
[2024-04-08 19:25] VITALS: BP 166/74
--- NOTE | 2024-04-08 19:37 | NUR ---
report received verified much better day today with pain control, pt was not crying out and would only call every couple of hours to be turned. pain madication every 4 hours was administered for generalized pain as well as routine. pt stated she was comfortable now. o2 sat remain in the high 90s on 2l nc. 1630 requested to get in chair. pt remained in chair until 183 and is ow back in bed comfortable and sleeping, purwic was removed but was inc of urine twice this shift
[2024-04-09 03:34] VITALS: BP 170/81
--- NOTE | 2024-04-09 04:43 | NUR ---
SHIFT SUMMARY PT ALERT ORIENTED SEEMS TO BE FEELING ALOT BETTER THIS SHIFT. SHE REMAINS ON ROXANOL PRN FOR PAIN CONTROL AND THIS IS HELPING TO CONTROL HER PAIN. SHES INC OF B7B AND WEARS BRIEFS. SHES KEPT TURNED BUT DOESNT LIKE TO LAY ON HER WEAK SIDE. REMAINS ON 2L OF O2 VIA NC. CONTINUES ON FLAGYL AND ROCEPHIN FOR HER UTI. NO C/O N/V THIS SHIFT. DOES GET SOB ON EXERTION. CONTINUES ON A CONTINUOUS PULSE OX. SHE IS FLACCID TO HER LT SIDE R/T PAST CVA. FS DONE BEFORE MEALS. RESTING IN BED AT THIS TIME WITH CALL LIGHT IN REACH
[2024-04-09 05:49] LABS: BASOPHILS ABSOLUTE AUTO 0.02 K/mm3 (0.00-0.23); BASOPHILS PERCENT AUTO 0 % (0-2); EOSINOPHILS ABSOLUTE AUTO 0.14 K/mm3 (0.00-0.68); EOSINOPHILS PERCENT AUTO 3 % (0-6); Hematocrit 37.8 % (33.0-51.0); Hemoglobin 12.2 g/dL (11.5-16.0); IMMATURE GRAN ABSOLUTE AUTO 0.02 K/mm3 (0.00-0.10); IMMATURE GRAN PERCENT AUTO 0 % (0-1); LYMPHOCYTES ABSOLUTE AUTO 0.97 K/mm3 (0.84-5.20); LYMPHOCYTES PERCENT AUTO 22 % (21-46); MONOCYTES PERCENT AUTO 11 % (4-13); Mean Corpuscular HGB 29.8 pg (26.0-34.0); Mean Corpuscular HGB Conc 32.3 g/dL (31.5-36.5); Mean Corpuscular Volume 92 fL (80-100); Mean Platelet Volume 9.1 fL (9.1-12.4); NEUTROPHILS ABSOLUTE AUTO 2.82 K/mm3 (1.96-9.15); NEUTROPHILS PERCENT AUTO 63 % (41-73); Platelet Count 160 K/mm3 (150-400); RDW Coefficient Variation 13.5 % (11.7-14.2); RDW Standard Deviation 46.3 fL (35.1-46.3); Red Blood Cell Count 4.09 M/mm3 (3.80-5.20); White Blood Cell Count 4.47 K/mm3 (4.00-11.30)
[2024-04-09 06:42] LABS: Bun/Creatinine Ratio 20.5 (12.0-20.0); Calcium, Blood 7.9 mg/dL (8.5-10.1); Creatinine, Blood 0.29 mg/dL (0.40-1.00)
[2024-04-09 07:37] VITALS: BP 171/76
[2024-04-09] MEDS ORDERED: Losartan Potassium 50 MG Tab PO SCH (09:00)
[2024-04-09] MEDS ORDERED: Potassium Chloride 20 MEQ TabCR PO ONE ×2 (10:00→13:00)
[2024-04-09] MEDS ORDERED: HYDROcodone 5-APAP 325 TAB PO PRN (13:20)
[2024-04-09 15:07] VITALS: BP 174/87
--- NOTE | 2024-04-09 15:21 | NUR ---
PT BP 174/86, NON SYMPTOMATIC. DR HUITRON NOTIFIED, NO NEW ORDERS AT THIS TIME
[2024-04-09] MEDS ORDERED: ALPRAZolam 0.25 MG Tab PO PRN (16:45)
--- NOTE | 2024-04-09 16:52 | NUR ---
SUMMARY NO ACUTE CHANGES THIS SHIFT. PT WAS UP TO CHAIR FOR APPROX 2.5 HRS. TOLORATED WELL. RETURNED TO BED DUE TO PAIN IN LEGS AND HIP. PT DAUGHTER CALLED FOR UPDATE PT GAVE PERMISSION TO SPEAK WITH DAUGHTER. DAUGHTER WANTS PT TO MOVE TO [facility] FAM[facility]. SPOKE WITH EMBEDDED SOFTWARE MANAGER. WILL NEED TO REVISIT TOMORROW WHEN STAFF IS AVAILABLE AT FACILITY. BED/CHAIR REST LIFT NEEDED. ALERT AND ORIENTED X4. 9900-CALLED TO BEDSIDE. PT EXPERIENCING ANXIETY CONCERNING DISCHARGE. NOTIFIED DR. HUITRON, EMAR UPDATED
[2024-04-09 19:27] VITALS: BP 158/81
[2024-04-10 02:12] VITALS: BP 147/74
[2024-04-10 05:40] LABS: BASOPHILS ABSOLUTE AUTO 0.02 K/mm3 (0.00-0.23); BASOPHILS PERCENT AUTO 1 % (0-2); EOSINOPHILS PERCENT AUTO 3 % (0-6); Hematocrit 38.3 % (33.0-51.0); Hemoglobin 12.2 g/dL (11.5-16.0); IMMATURE GRAN ABSOLUTE AUTO 0.02 K/mm3 (0.00-0.10); IMMATURE GRAN PERCENT AUTO 1 % (0-1); LYMPHOCYTES ABSOLUTE AUTO 1.13 K/mm3 (0.84-5.20); LYMPHOCYTES PERCENT AUTO 31 % (21-46); MONOCYTES ABSOLUTE AUTO 0.38 K/mm3 (0.16-1.47); MONOCYTES PERCENT AUTO 10 % (4-13); Mean Corpuscular HGB 29.3 pg (26.0-34.0); Mean Corpuscular HGB Conc 31.9 g/dL (31.5-36.5); Mean Corpuscular Volume 92 fL (80-100); NEUTROPHILS ABSOLUTE AUTO 2.02 K/mm3 (1.96-9.15); NEUTROPHILS PERCENT AUTO 55 % (41-73); Platelet Count 135 K/mm3 (150-400); RDW Coefficient Variation 13.7 % (11.7-14.2); RDW Standard Deviation 46.3 fL (35.1-46.3); Red Blood Cell Count 4.16 M/mm3 (3.80-5.20); White Blood Cell Count 3.67 K/mm3 (4.00-11.30)
[2024-04-10 06:12] LABS: Bun/Creatinine Ratio 20.9 (12.0-20.0); Creatinine, Blood 0.29 mg/dL (0.40-1.00)
--- NOTE | 2024-04-10 06:16 | NUR ---
PT STABLE THROUGHOUT THE SHIFT, EPISODES OF HTN W/O PROBLEM. PT TOLERATING IV ABX WELL. PT REMAINS AOX3-4, ON 2L O2, AND ASSIST WITH EATING AND DRINKING. LEFT SIDE FLACCID FROM OLD CVA, EDEMA TO LEFT FOOT. PT HAS BEEN REPOSITIONED SEVERAL TIMES. PT WAS INCONTINENT OF URINE AND A PUREWICK WAS PLACED WITH GOOD EFFECT. PAIN CONTROLLED WITH SCHEDULED MEDICATIONS.
[2024-04-10 07:21] VITALS: BP 132/62
[2024-04-10] MEDS ORDERED: Furosemide 20 MG Tab PO SCH (09:00)
[2024-04-10] MEDS ORDERED: ERGO50000 PO (13:53)
[2024-04-10 15:01] VITALS: BP 173/79
[2024-04-10 15:01] LABS: SARS-Cov-2 (COVID-19) PCR, MMC POSITIVE (NEGATIVE)
[2024-04-10] MEDS ORDERED: Morphine Sulfate 20 MG/1ML 1 ML Oral Syringe PO ONE (16:00)
--- NOTE | 2024-04-10 16:05 | NUR ---
[facility] ARRIVED WITH WHEELCHAIR FOR TRANSPORT BACK TO FACILITY. PATIENT CRYING DUE TO PAIN. NEXT [facility] NOT AVAILABLE UNTIL 1800. CALL TO DR SHULTZ FOR ADDITIONAL DOSE OF PAIN MEDICATIONS TO GET PATIENT HOME. HOWEVER, WHEN LIFTING PATIENT WITH LIFT, SHE BEGAN CRYING IN PAIN IN LEFT GROIN/HIP. CALL TO DR SHULTZ; HE AND DR WILSON WILL COME ASSESS. DISCHARGE POTENTIALLY DELAYED UNTIL TOMORROW PENDING PROVIDER ASSESSMENT AND DIAGNOSTICS.
[2024-04-10 19:24] VITALS: BP 168/68
--- NOTE | 2024-04-10 19:40 | NUR ---
A&Ox4. PLEASANT AND COOPERATIVE WITH CARE. CALLS APPROPRIATELY AND IS ABLE TO ADVOCATE NEEDS EFFECTIVELY. MEDS WHOLE WITH APPLESAUCE. PUREWICK IN PLACE SECONDARY TO IMPAIRED MOBILITY AND URINARY INCONTINENCE. NO BOWEL MOVEMENT TODAY. C/O EXTREME LEFT GROIN PAIN UNRELIEVED WITH ANY REPOSITIONING OR PAIN MEDICATION; SO MUCH SO THAT HER DISCHARGE WAS DEFERRED UNTIL AFTER FURTHER WORKUP. PROVIDER NOTIFIED AND XR ORDERED. RAPID COVID POSITIVE, BUT CELL COUNT 44 INDICATING OLD INFx AND PRECAUTIONS NOT INDICATED. MEDICATED x2 PRN REGLAN FOR NAUSEA/UPSET STOMACH. MULTIPLE FAILED ATTEMPTS TO RELIEVE PAIN WITH REPOSITIONING. REPORT TO ONCOMING NURSE.
[2024-04-10] MEDS ORDERED: FentaNYL Citrate 50 MCG/ML 2 ML Injection IV ONE (20:10)
[2024-04-11] MEDS ORDERED: FentaNYL Citrate 50 MCG/ML 2 ML Injection IV PRN (00:45)
--- NOTE | 2024-04-11 04:36 | NUR ---
NOC SUMMARY- PT CONTINUES TO COMPLAIN OF LEFT HIP/ GROIN PAIN. PT WAS GETTING LITTLE RELIEF FROM PO PAIN MEDS. PROVIDER CALLED AND ORDERED IV PAIN MEDS. PT HAS BEEN ABLE TO REST MORE COMFORTABLY. PT CONTINUES TO VOID VIA PUREWICK. PT BRIEF CHANGED NEEDED. PT REMAINS ON O2 VIA NC. PT DENIES SOB. SPO2>90%. PT REPOSITIONED TOLERATED. CALL LIGHT IN REACH.
[2024-04-11 06:27] VITALS: BP 170/86
[2024-04-11 07:20] VITALS: BP 168/79
[2024-04-11] MEDS ORDERED: Polyethylene Glycol 3350 17 gm PO SCH (10:00)
[2024-04-11] MEDS ORDERED: Docusate Sodium/Senna 1 Tab PO SCH (10:00)
[2024-04-11] MEDS ORDERED: Naloxegol Oxalate 12.5 MG Tab PO ONE (10:00)
[2024-04-11 15:12] VITALS: BP 159/93
--- NOTE | 2024-04-11 15:32 | NUR ---
REPORT CALLED TO ALBERTO RN @[phone], DAUGHTER UPATED ON PICKUP TIME ETA FOR TRANSFER BACK TO [facility]
--- NOTE | 2024-04-11 17:09 | NUR ---
PATIENT DISCHARGED BACK TO [facility] AT 1709. 1 UNIT OF INSULIN AND XANAX PRN GIVEN PRIOR TO DISCHARGE. PATIENT SENT VIA GURNEY. IV WAS REMOVED. BELONGINGS RETURNED. FAMILY NOTIFIED.
== END 2024-04-11 17:14 | DRG 177 ==
LOC: ER 13:52 → PCU 20:25 → MEDS 04-05 15:27 → PCU 04-05 15:28 → MEDS 04-06 17:51
PROVIDERS: Emergency Medicine; Family Medicine; Nurse Practitioner Acute Care; ADMIT Student in an Organized Health Care Education/Training Program
DX: J69.0 Pneumonitis due to inhalation of food and vomit (principal); J96.01 Acute respiratory failure with hypoxia; U07.1 COVID-19; N39.0 Urinary tract infection, site not specified; I69.954 Hemiplegia and hemiparesis following unspecified cerebrovascular disease affecting left non-dominant side; I50.32 Chronic diastolic (congestive) heart failure; I11.0 Hypertensive heart disease with heart failure; I95.2 Hypotension due to drugs; K59.03 Drug induced constipation; T40.2X5A Adverse effect of other opioids, initial encounter; Z99.81 Dependence on supplemental oxygen; I44.0 Atrioventricular block, first degree; E55.9 Vitamin D deficiency, unspecified; B37.9 Candidiasis, unspecified; R20.0 Anesthesia of skin; K21.9 Gastro-esophageal reflux disease without esophagitis; M19.90 Unspecified osteoarthritis, unspecified site; R13.10 Dysphagia, unspecified; E11.9 Type 2 diabetes mellitus without complications; E78.5 Hyperlipidemia, unspecified; I25.10 Atherosclerotic heart disease of native coronary artery without angina pectoris; G89.4 Chronic pain syndrome; F32.A Depression, unspecified; Z88.5 Allergy status to narcotic agent; Z88.0 Allergy status to penicillin; Z88.2 Allergy status to sulfonamides; Z88.8 Allergy status to other drugs, medicaments and biological substances; Z79.899 Other long term (current) drug therapy; Z86.14 Personal history of Methicillin resistant Staphylococcus aureus infection; Z95.5 Presence of coronary angioplasty implant and graft; Z90.89 Acquired absence of other organs; Z98.890 Other specified postprocedural states
CPT/HCPCS: 0241U; 36415; 71045; 71260; 73502; 80048; 80053; 81001; 82306; 82330; 82533; 82607; 82746; 82947; 83036; 83605; 83735; 83880; 83970; 84100; 84145; 84443; 85025; 87040; 87086; 87106; 92526; 92610; 93005; 93010; 94640; 94664; 94762; 96361; 96365-59; 96367; 96372; 96375; 99285-25; A9270; G0378; J0456; J0612; J0692; J0696; J1650; J1815; J2405; J2765; J3010; J7030; J7050; J7120; Q9967; U0002

== ENCOUNTER 2024-10-02 01:14 | Emergency (ER) | payer MEDICARE, OTHER ==
[~2024-10-02] VITALS: Ht 162.6 cm; Wt 68.0 kg
[~2024-10-02 01:14] MED LIST changes: +BACL10 PO; +BISA10S PR; +ERGO50000 PO; +MELA3 PO; +SERT100 PO
[2024-10-02 08:25] LABS: BASOPHILS ABSOLUTE AUTO 0.02 K/mm3 (0.00-0.23); BASOPHILS PERCENT AUTO 0 % (0-2); EOSINOPHILS ABSOLUTE AUTO 0.06 K/mm3 (0.00-0.68); EOSINOPHILS PERCENT AUTO 1 % (0-6); Hematocrit 40.4 % (33.0-51.0); Hemoglobin 13.2 g/dL (11.5-16.0); IMMATURE GRAN ABSOLUTE AUTO 0.02 K/mm3 (0.00-0.10); IMMATURE GRAN PERCENT AUTO 0 % (0-1); LYMPHOCYTES ABSOLUTE AUTO 1.47 K/mm3 (0.84-5.20); LYMPHOCYTES PERCENT AUTO 20 % (21-46); MONOCYTES ABSOLUTE AUTO 0.48 K/mm3 (0.16-1.47); MONOCYTES PERCENT AUTO 7 % (4-13); Mean Corpuscular HGB 29.4 pg (26.0-34.0); Mean Corpuscular HGB Conc 32.7 g/dL (31.5-36.5); Mean Corpuscular Volume 90 fL (80-100); Mean Platelet Volume 9.2 fL (9.1-12.4); NEUTROPHILS ABSOLUTE AUTO 5.21 K/mm3 (1.96-9.15); NEUTROPHILS PERCENT AUTO 72 % (41-73); Platelet Count 185 K/mm3 (150-400); RDW Coefficient Variation 15.4 % (11.7-14.2); RDW Standard Deviation 51.2 fL (35.1-46.3); Red Blood Cell Count 4.49 M/mm3 (3.80-5.20); White Blood Cell Count 7.26 K/mm3 (4.00-11.30)
[2024-10-02 08:43] LABS: Albumin, Blood 2.7 g/dL (3.4-5.0); Albumin/Globulin Ratio 0.6 (0.8-1.8); Bilirubin, Total 0.5 mg/dL (0.1-1.0); Bun/Creatinine Ratio 34.9 (12.0-20.0); Calcium, Blood 8.8 mg/dL (8.5-10.1); Creatinine, Blood 0.55 mg/dL (0.40-1.00); Globulin, Blood 4.6 g/dL (2.2-4.0); Potassium, Blood 4.2 mmol/L (3.5-5.5); Total Protein, Blood 7.3 g/dL (6.4-8.2)
[2024-10-02 08:51] LABS: CORONAVIRUS COVID-19 AG Negative (NEGATIVE); INFLUENZA A AG Negative (NEGATIVE); INFLUENZA B AG Negative (NEGATIVE)
[2024-10-02 10:30] VITALS: BP 125/70
== END 2024-10-02 10:58 | disposition home or self-care (01) ==
LOC: ER 01:14
PROVIDERS: Emergency Medicine
DX: R06.02 Shortness of breath (principal); R05.3 Chronic cough; K59.09 Other constipation; E11.9 Type 2 diabetes mellitus without complications; I11.0 Hypertensive heart disease with heart failure; I50.30 Unspecified diastolic (congestive) heart failure; J44.9 Chronic obstructive pulmonary disease, unspecified; I25.10 Atherosclerotic heart disease of native coronary artery without angina pectoris; F17.210 Nicotine dependence, cigarettes, uncomplicated; Z95.5 Presence of coronary angioplasty implant and graft; Z99.81 Dependence on supplemental oxygen; Z86.73 Personal history of transient ischemic attack (TIA), and cerebral infarction without residual deficits; Z88.0 Allergy status to penicillin; Z88.2 Allergy status to sulfonamides; Z88.5 Allergy status to narcotic agent; Z88.8 Allergy status to other drugs, medicaments and biological substances; Z79.84 Long term (current) use of oral hypoglycemic drugs; Z79.82 Long term (current) use of aspirin; Z79.4 Long term (current) use of insulin; Z79.899 Other long term (current) drug therapy
CPT/HCPCS: 71045; 80053; 83690; 83880; 84484; 85025; 87428-QW; 93005; 93010; 99285-25

== ENCOUNTER 2024-12-29 00:38 | Inpatient (IN) | payer MEDICARE, OTHER ==
[~2024-12-29] VITALS: Ht 165.1 cm; Wt 86.2 kg
[2024-12-29] MEDS ORDERED: NS 1,000 ML IV SCH ×2 (00:45→03:00)
[2024-12-29 01:07] LABS: BASOPHILS ABSOLUTE AUTO 0.02 K/mm3 (0.00-0.23); BASOPHILS PERCENT AUTO 0 % (0-2); EOSINOPHILS ABSOLUTE AUTO 0.05 K/mm3 (0.00-0.68); EOSINOPHILS PERCENT AUTO 1 % (0-6); Hematocrit 39.3 % (33.0-51.0); Hemoglobin 12.7 g/dL (11.5-16.0); IMMATURE GRAN ABSOLUTE AUTO 0.05 K/mm3 (0.00-0.10); IMMATURE GRAN PERCENT AUTO 1 % (0-1); LYMPHOCYTES ABSOLUTE AUTO 0.82 K/mm3 (0.84-5.20); LYMPHOCYTES PERCENT AUTO 10 % (21-46); MONOCYTES ABSOLUTE AUTO 0.39 K/mm3 (0.16-1.47); MONOCYTES PERCENT AUTO 5 % (4-13); Mean Corpuscular HGB Conc 32.3 g/dL (31.5-36.5); Mean Corpuscular Volume 91 fL (80-100); NEUTROPHILS ABSOLUTE AUTO 7.06 K/mm3 (1.96-9.15); NEUTROPHILS PERCENT AUTO 84 % (41-73); NRBC ABSOLUTE 0.00 K/mm3 (0.00-0.02); NRBC Auto 0.0 /100 WBC (0.0-0.2); Platelet Count 216 K/mm3 (150-400); RDW Coefficient Variation 13.9 % (11.7-14.2); RDW Standard Deviation 46.5 fL (35.1-46.3)
[2024-12-29 01:21] LABS: pH Blood Venous 7.42 (7.34-7.37)
[2024-12-29 01:26] LABS: Alanine Aminotransfer (ALT/SGP 27.0 U/L (12-78); Albumin, Blood 2.5 g/dL (3.4-5.0); Albumin/Globulin Ratio 0.5 (0.8-1.8); Anion Gap 8.0 mmol/L (3-11); Aspartate Aminotrans (AST/SGOT 32.0 U/L (12-37); Bilirubin, Total 0.4 mg/dL (0.1-1.0); Blood Urea Nitrogen 28.0 mg/dL (8-24); CO2, Blood 31.0 mmol/L (21-32); Calcium, Blood 8.1 mg/dL (8.5-10.1); Chloride, Blood 102.0 mmol/L (98-108); Creatinine, Blood 0.77 mg/dL (0.40-1.00); Globulin, Blood 5.2 g/dL (2.2-4.0); Glucose, Blood 198.0 mg/dL (70-99); Potassium, Blood 4.8 mmol/L (3.5-5.5); Sodium, Blood 136.0 mmol/L (136-145); Total Protein, Blood 7.7 g/dL (6.4-8.2)
[2024-12-29 02:10] LABS: Influenza A, PCR NEGATIVE (NEGATIVE); Influenza B, PCR NEGATIVE (NEGATIVE); Resp Syncytial Virus, PCR NEGATIVE (NEGATIVE); SARS-Cov-2 (COVID-19) PCR, MMC NEGATIVE (NEGATIVE)
[2024-12-29] MEDS ORDERED: CefTRIAXone Sodium 2,000 MG in NS 100 ML IV ONE (03:00)
[2024-12-29 03:18] LABS: Source, Urine Clean Catch
[2024-12-29] MEDS ORDERED: NS 1,000 ML IV ONE (03:35)
[2024-12-29] MEDS ORDERED: Ondansetron HCl 2 MG / ML 2ML Vial IV PRN (03:35)
[2024-12-29 03:44] LABS: Bilirubin, Urine Neg (Neg); Glucose Qualitative, Urine 4+ (Neg); Ketones, Urine Neg (Neg); Leukocyte Esterase, Urine 3+ (Neg); Protein, Urine 4+ (Neg); Specific Gravity, Urine 1.020 (1.003-1.022); Urobilinogen, Urine NORM (Normal)
[2024-12-29 04:02] LABS: Color, Urine Pale Yellow (P-Yellow)
[2024-12-29 04:05] LABS: Red Blood Cells, Urine 50-100 /hpf (0-2); White Blood Cells, Urine TNTC /hpf (0-5)
[2024-12-29] MEDS ORDERED: Albumin (Human) 25gm/100ml 100 ML IV ONE (04:30)
[2024-12-29] MEDS ORDERED: Insulin Human Lispro 100 Units/ML 3ML Syringe SC SCH (07:30)
[2024-12-29] MEDS ORDERED: Enoxaparin 40 MG/0.4 ML SYR SC SCH (09:00)
[2024-12-29 13:41] LABS: BASOPHILS ABSOLUTE AUTO 0.01 K/mm3 (0.00-0.23); BASOPHILS PERCENT AUTO 0 % (0-2); EOSINOPHILS ABSOLUTE AUTO 0.02 K/mm3 (0.00-0.68); EOSINOPHILS PERCENT AUTO 0 % (0-6); Hematocrit 31.8 % (33.0-51.0); Hemoglobin 10.1 g/dL (11.5-16.0); IMMATURE GRAN ABSOLUTE AUTO 0.02 K/mm3 (0.00-0.10); IMMATURE GRAN PERCENT AUTO 0 % (0-1); LYMPHOCYTES ABSOLUTE AUTO 0.64 K/mm3 (0.84-5.20); LYMPHOCYTES PERCENT AUTO 13 % (21-46); MONOCYTES ABSOLUTE AUTO 0.46 K/mm3 (0.16-1.47); MONOCYTES PERCENT AUTO 9 % (4-13); Mean Corpuscular HGB Conc 31.8 g/dL (31.5-36.5); Mean Corpuscular Volume 93 fL (80-100); NEUTROPHILS ABSOLUTE AUTO 3.95 K/mm3 (1.96-9.15); NEUTROPHILS PERCENT AUTO 78 % (41-73); NRBC ABSOLUTE 0.00 K/mm3 (0.00-0.02); NRBC Auto 0.0 /100 WBC (0.0-0.2); Platelet Count 173 K/mm3 (150-400); RDW Coefficient Variation 14.1 % (11.7-14.2); RDW Standard Deviation 48.1 fL (35.1-46.3)
[2024-12-29 14:05] LABS: Alanine Aminotransfer (ALT/SGP 21.0 U/L (12-78); Albumin, Blood 2.4 g/dL (3.4-5.0); Albumin/Globulin Ratio 0.6 (0.8-1.8); Anion Gap 5.0 mmol/L (3-11); Aspartate Aminotrans (AST/SGOT 27.0 U/L (12-37); Bilirubin, Total 0.3 mg/dL (0.1-1.0); Blood Urea Nitrogen 21.0 mg/dL (8-24); CO2, Blood 30.0 mmol/L (21-32); Calcium, Blood 7.7 mg/dL (8.5-10.1); Chloride, Blood 109.0 mmol/L (98-108); Creatinine, Blood 0.62 mg/dL (0.40-1.00); Globulin, Blood 4.2 g/dL (2.2-4.0); Glucose, Blood 122.0 mg/dL (70-99); Potassium, Blood 4.4 mmol/L (3.5-5.5); Sodium, Blood 140.0 mmol/L (136-145); Total Protein, Blood 6.6 g/dL (6.4-8.2)
[2024-12-29] MEDS ORDERED: Albuterol 2.5 MG/3 ML VIAL INH PRN (15:30)
[2024-12-29] MEDS ORDERED: HYDROcodone 5-APAP 325 TAB PO PRN (15:30)
[2024-12-29 16:08] VITALS: BP 127/56
--- NOTE | 2024-12-29 17:37 | NUR ---
ADMISSION AND SHIFT SUMMARY PATIENT ADMITTED TO MEDICAL FLOOR. PATIENT RESIDES AT [facility]. PATIENT HAS A HX OF CVA WITH L SIDED DEFICIT AND CONTRACTURES ON THAT SIDE. PATIENT RESTING WHEN UNDISTURBED. AROUSES EASILY. PATIENT INCONTINENT URINE AND PURWICK IN PLACE. IV FLUIDS INFUSING.
--- NOTE | 2024-12-29 17:54 | NUR ---
PALLIATIVE CARE CONSULT: CONSULT RECIEVED FOR AD PLANNING, SYMPTOM MANAGEMENT. REVIEWED MEDICAL RECORD POLST REGISTRY PRIOR TO VISIT. FOUND POLST THROUGH REGISTRY SIGNED ON 04/07/24 WITH DNR/LIMITED STATUS. MET WITH PT TO DISCUSS ABOVE. PT APPEARS TO BE TIRED AND WEAK, SHE DOES WAKE UP AND IS ABLE TO PARTICIPATE IN DISCUSSION AND MAKE NEEDS KNOWN. SHE CONFIRMS SHE WANTS TO HAVE DNR CODE STATUS AND TO FOLLOW POLST. PT IS AGREEABLE TO HAVING GOC DISCUSSION WHEN SHE IS FEELING BETTER AND NOT SO TIRED. PT REPORTS PAIN TO L HIP DESCRIBED CHRONIC ACHY PAIN. SHE STATES SHE USES PAIN CREAM FOR HER HIP PAIN. PT DENIES RECENT FALLS. SHE IS WEAK, LETHARGIC. SHE DENIES NAUSEA, DECREASED APPETITE, CONSTIPATION, DIARRHEA. CALLED DR. NASSAR. SHE IS AGREEABLE TO CHANGING CODE STATUS TO DNR. ORDER RECEIVED FOR LIDOCAINE PATCH DAILY TO LEFT HIP. ORDERS PLACED. UPDATED PRIMARY RN.
--- NOTE | 2024-12-29 18:05 | NUR ---
PLACED COPY OF POLST IN CHART. SENT COPY TO MEDICAL RECORDS AND REQUESTED POLST ON FILE BE DELETED AND NEW POLST FILED.
[2024-12-29 20:13] VITALS: BP 115/51
[2024-12-29] MEDS ORDERED: Lactobacil 2-S.Thermo-Bifido 1 1 Cap PO SCH (21:00)
[2024-12-29] MEDS ORDERED: NS 250 ML IV PRN (23:40)
[2024-12-30] VITALS (7 sets, daily range): BP systolic 125–150; BP diastolic 54–71
--- NOTE | 2024-12-30 04:48 | NUR ---
SHIFT SUMMARY PATIENT A/O X3- BEDREST THROUGHOUT SHIFT, REPOSITIONED Q2H. ON 3L VIA NC. PT COMPLAINED OF PAIN WHILE URINATING, PUREWICK IN PLACE, FOUL SMELLING NINA URINE. PATIENT MEDICATED FOR PAIN X1 AND FOR NAUSEA X1 THIS SHIFT. TELE REPORT SINUS MEJIA TO NORMAL SINUS 55-65 WITH BBB. NO REPORT OF CHEST PAIN OR PRESSURE. IV ABX CONTINUED. WILL CONTINUE TO MONITOR AND REPORT TO ONCOMING RN.
[2024-12-30 04:54] LABS: BASOPHILS ABSOLUTE AUTO 0.02 K/mm3 (0.00-0.23); BASOPHILS PERCENT AUTO 0 % (0-2); EOSINOPHILS ABSOLUTE AUTO 0.04 K/mm3 (0.00-0.68); EOSINOPHILS PERCENT AUTO 1 % (0-6); Hematocrit 40.8 % (33.0-51.0); Hemoglobin 12.6 g/dL (11.5-16.0); IMMATURE GRAN ABSOLUTE AUTO 0.07 K/mm3 (0.00-0.10); IMMATURE GRAN PERCENT AUTO 1 % (0-1); LYMPHOCYTES ABSOLUTE AUTO 2.36 K/mm3 (0.84-5.20); LYMPHOCYTES PERCENT AUTO 33 % (21-46); MONOCYTES ABSOLUTE AUTO 0.52 K/mm3 (0.16-1.47); MONOCYTES PERCENT AUTO 7 % (4-13); Mean Corpuscular HGB Conc 30.9 g/dL (31.5-36.5); Mean Corpuscular Volume 92 fL (80-100); NEUTROPHILS ABSOLUTE AUTO 4.14 K/mm3 (1.96-9.15); NEUTROPHILS PERCENT AUTO 58 % (41-73); NRBC ABSOLUTE 0.00 K/mm3 (0.00-0.02); NRBC Auto 0.0 /100 WBC (0.0-0.2); Platelet Count 179 K/mm3 (150-400); RDW Coefficient Variation 14.2 % (11.7-14.2); RDW Standard Deviation 48.2 fL (35.1-46.3)
[2024-12-30 05:26] LABS: Alanine Aminotransfer (ALT/SGP 28.0 U/L (12-78); Albumin, Blood 2.8 g/dL (3.4-5.0); Albumin/Globulin Ratio 0.6 (0.8-1.8); Anion Gap 5.0 mmol/L (3-11); Aspartate Aminotrans (AST/SGOT 40.0 U/L (12-37); Bilirubin, Total 0.4 mg/dL (0.1-1.0); Blood Urea Nitrogen 21.0 mg/dL (8-24); CO2, Blood 32.0 mmol/L (21-32); Calcium, Blood 8.3 mg/dL (8.5-10.1); Chloride, Blood 106.0 mmol/L (98-108); Creatinine, Blood 0.59 mg/dL (0.40-1.00); Globulin, Blood 4.8 g/dL (2.2-4.0); Glucose, Blood 138.0 mg/dL (70-99); Potassium, Blood 4.2 mmol/L (3.5-5.5); Sodium, Blood 139.0 mmol/L (136-145); Total Protein, Blood 7.6 g/dL (6.4-8.2)
[2024-12-30] MEDS ORDERED: Lidocaine 4% 1 Patch TOP SCH (09:00)
--- NOTE | 2024-12-30 17:53 | NUR ---
PATIENT RESTED IN BED TODAY, MEDICATION TOLERATED, ATE SMALL AMOUNTS OF MEAL. REPOSITIONED TOLERATED. PATIENT ABLE TO VERBALIZE COMFORTABLE POSITIONS AND CONCERNS.
[2024-12-31 04:01] VITALS: BP 134/53
--- NOTE | 2024-12-31 04:40 | NUR ---
SHIFT SUMMARY A/O X2-3, INTERMITTENT CONFUSION. BEDREST THROUGHOUT THE SHIFT. ATTENDS CHANGED PRN, PUREWICK DRAINING NINA URINE. REPOSITOINED Q2H. MEDICATED FOR PAIN PER EMAR. RT TO BEDSIDE X1 FOR PRN BREATHING TREATMENT FOR INCREASED WHEEZING. NO ACUTE CHANGES THROUGHOUT THE SHIFT. WILL CONTINUE TO MONITOR AND REPORT TO ONCOMING RN.
[2024-12-31 05:07] LABS: BASOPHILS ABSOLUTE AUTO 0.01 K/mm3 (0.00-0.23); BASOPHILS PERCENT AUTO 0 % (0-2); EOSINOPHILS ABSOLUTE AUTO 0.06 K/mm3 (0.00-0.68); EOSINOPHILS PERCENT AUTO 2 % (0-6); Hematocrit 35.1 % (33.0-51.0); Hemoglobin 11.1 g/dL (11.5-16.0); IMMATURE GRAN ABSOLUTE AUTO 0.04 K/mm3 (0.00-0.10); IMMATURE GRAN PERCENT AUTO 1 % (0-1); LYMPHOCYTES ABSOLUTE AUTO 1.15 K/mm3 (0.84-5.20); LYMPHOCYTES PERCENT AUTO 28 % (21-46); MONOCYTES ABSOLUTE AUTO 0.49 K/mm3 (0.16-1.47); MONOCYTES PERCENT AUTO 12 % (4-13); Mean Corpuscular HGB Conc 31.6 g/dL (31.5-36.5); Mean Corpuscular Volume 91 fL (80-100); NEUTROPHILS ABSOLUTE AUTO 2.31 K/mm3 (1.96-9.15); NEUTROPHILS PERCENT AUTO 57 % (41-73); NRBC ABSOLUTE 0.00 K/mm3 (0.00-0.02); NRBC Auto 0.0 /100 WBC (0.0-0.2); Platelet Count 173 K/mm3 (150-400); RDW Coefficient Variation 14.1 % (11.7-14.2); RDW Standard Deviation 47.1 fL (35.1-46.3)
[2024-12-31 05:30] LABS: Anion Gap 5.0 mmol/L (3-11); Blood Urea Nitrogen 15.0 mg/dL (8-24); CO2, Blood 31.0 mmol/L (21-32); Calcium, Blood 8.1 mg/dL (8.5-10.1); Chloride, Blood 107.0 mmol/L (98-108); Creatinine, Blood 0.56 mg/dL (0.40-1.00); Glucose, Blood 123.0 mg/dL (70-99); Potassium, Blood 3.8 mmol/L (3.5-5.5); Sodium, Blood 139.0 mmol/L (136-145)
[2024-12-31 07:40] VITALS: BP 132/57
[2024-12-31 11:25] VITALS: BP 151/70
[2024-12-31] MEDS ORDERED: Vancomycin (Pharmacy Consult) IV SCH (14:00)
[2024-12-31 15:39] VITALS: BP 142/74
--- NOTE | 2024-12-31 19:33 | NUR ---
SHIFT SUMMARY IV ABX PER EMAR, LLE VENOUS DUPLEX PERFORMED TODAY, PT PAINFUL WITH CHRONIC PAIN, REPORTS THE SMAE NUMBER BUT APPEARS TO HAVE SOME RELIEF WITH PAIN MEDS, NO ACUTE EVENTS THIS SHIFT, CALL LIGHT IN REACH.
[2024-12-31 20:20] VITALS: BP 153/71
[2025-01-01 00:15] VITALS: BP 137/67
[2025-01-01 04:08] VITALS: BP 171/84
--- NOTE | 2025-01-01 04:31 | NUR ---
SHIFT SUMMARY A&OX4, VSS, MEDICATED PER MAR FOR C/O GENERALIZED PAIN, ASSISTED W/REPOSITIONS, DANGLED AT SIDE OF BED X1, SLEEPING AT THIS TIME, WILL CONT TO MONITOR UNTIL REPORT GIVEN TO ONCOMING NURSE.
[2025-01-01 05:53] LABS: BASOPHILS ABSOLUTE AUTO 0.01 K/mm3 (0.00-0.23); BASOPHILS PERCENT AUTO 0 % (0-2); EOSINOPHILS ABSOLUTE AUTO 0.13 K/mm3 (0.00-0.68); EOSINOPHILS PERCENT AUTO 3 % (0-6); Hematocrit 35.4 % (33.0-51.0); Hemoglobin 11.3 g/dL (11.5-16.0); IMMATURE GRAN ABSOLUTE AUTO 0.06 K/mm3 (0.00-0.10); IMMATURE GRAN PERCENT AUTO 1 % (0-1); LYMPHOCYTES ABSOLUTE AUTO 1.34 K/mm3 (0.84-5.20); LYMPHOCYTES PERCENT AUTO 31 % (21-46); MONOCYTES ABSOLUTE AUTO 0.40 K/mm3 (0.16-1.47); MONOCYTES PERCENT AUTO 9 % (4-13); Mean Corpuscular HGB Conc 31.9 g/dL (31.5-36.5); Mean Corpuscular Volume 91 fL (80-100); NEUTROPHILS ABSOLUTE AUTO 2.35 K/mm3 (1.96-9.15); NEUTROPHILS PERCENT AUTO 55 % (41-73); NRBC ABSOLUTE 0.00 K/mm3 (0.00-0.02); NRBC Auto 0.0 /100 WBC (0.0-0.2); Platelet Count 171 K/mm3 (150-400); RDW Coefficient Variation 13.9 % (11.7-14.2); RDW Standard Deviation 46.4 fL (35.1-46.3)
[2025-01-01 06:16] LABS: Alanine Aminotransfer (ALT/SGP 36.0 U/L (12-78); Albumin, Blood 2.3 g/dL (3.4-5.0); Albumin/Globulin Ratio 0.5 (0.8-1.8); Anion Gap 4.0 mmol/L (3-11); Aspartate Aminotrans (AST/SGOT 48.0 U/L (12-37); Bilirubin, Total 0.3 mg/dL (0.1-1.0); Blood Urea Nitrogen 9.0 mg/dL (8-24); CO2, Blood 31.0 mmol/L (21-32); Calcium, Blood 7.9 mg/dL (8.5-10.1); Chloride, Blood 108.0 mmol/L (98-108); Creatinine, Blood 0.36 mg/dL (0.40-1.00); Globulin, Blood 4.3 g/dL (2.2-4.0); Glucose, Blood 135.0 mg/dL (70-99); Potassium, Blood 3.5 mmol/L (3.5-5.5); Sodium, Blood 139.0 mmol/L (136-145); Total Protein, Blood 6.6 g/dL (6.4-8.2)
[2025-01-01 06:51] VITALS: BP 151/68
[2025-01-01 07:31] VITALS: BP 171/80
--- NOTE | 2025-01-01 08:41 | NUR ---
THIS RN NOTIFIED OF PT'S ELEVATED BP. PT ASYMPTOMATIC AT THIS TIME. PROVIDER TO UPDATE EMAR.
[2025-01-01] MEDS ORDERED: CefTRIAXone Sodium 1,000 MG in NS 100 ML IV SCH (09:00)
[2025-01-01] MEDS ORDERED: HYDROcodone 5-APAP 325 TAB PO PRN (13:25)
[2025-01-01 15:40] VITALS: BP 166/83
--- NOTE | 2025-01-01 18:02 | NUR ---
SHIFT SUMMARY PT A&OX2 W/ CONFUSION AT TIMES, BEDRIDDEN, TOLERATING PO, VOIDING, AND PAIN MANAGED PER EMAR. PT HYPERTENSIVE THIS AM, BUT ASYMPTOMATIC. PROVIDER AWARE, SEE PREVIOUS NOTE. PT REMAINS HYPERTENSIVE, BUT IMPROVED. PT C/O PAIN T/O SHIFT THAT WAS OUT OF PROPORTION, THIS RN CALLED DR. HUITRON AND EMAR UPDATED AND PT MEDICATED. PT STATED PAIN IMPROVED. IV ABX INFUSED. NO OTHER ACUTE CHANGES. CALL LIGHT WITHIN REACH AND PT ABLE TO MAKE NEEDS KNOWN.
[2025-01-01 19:26] VITALS: BP 150/71
[2025-01-01] MEDS ORDERED: Docusate Sodium/Senna 1 Tab PO SCH (21:00)
[2025-01-02 02:17] LABS: Vancomycin, Trough 19.5 ug/mL (5.0-10.0)
[2025-01-02 03:38] VITALS: BP 151/66
--- NOTE | 2025-01-02 03:51 | NUR ---
SHIFT SUMMARY PT A&OX2-3 W/CONFUSION AT NIGHT, VSS, MEDICATED PER MAR FOR PAIN, PT STATES PAIN IS NOT BEING WELL CONTROLLED, C/O PAIN T/O MOST OF THIS SHIFT, REPOSITIONED Q2 FOR COMFORT, BEDRESTING NOW, CALL LIGHT IN REACH, WILL CONT TO MONITOR UNTIL REPORT GIVEN TO ONCOMING NURSE.
[2025-01-02 07:15] VITALS: BP 171/86
[2025-01-02] MEDS ORDERED: Insulin Glargine,Hum.Rec.Anlog 100 UNIT/ML 3MLSYR SC SCH (09:00)
[2025-01-02 15:07] VITALS: BP 141/74
--- NOTE | 2025-01-02 16:15 | NUR ---
DISCHARGE NOTE PT WAS DISCHARGED BACK TO [facility] AT APPROX 1600. PT A/OX4 AND VSS AT TIME OF DISCHARGE. PT RECEIVED VERBAL AND WRITTEN DISCHARGE EDUCATION. PT VERBALIZED AN UNDERSTANDING OF DISCHARGE EDUCATION. ALL PERSONAL BELONGINGS TAKEN WITH PT. PT WAS ESCORTED OUT VIA [facility].
--- NOTE | 2025-01-02 18:31 | NUR ---
SHIFT SUMMARY PT IS A&OX3-4 WITH CONFUSION AT TIMES. PT IS ABLE TO MAKE NEEDS KNOWN PT IS TOELRATING PO INTAKE, VOIDING APPROPRIATELY WITH PUREWICK, AND BEDRIDDEN. PT REPORTS PAIN AND HAS A HX OF CHRONIC PAIN, PT WAS MEDICATED PER EMAR THROUGHOUT SHIFT. NO ACUTE CHANGES THIS SHIFT CALL LIGHT WITHIN REACH OF PT.
[2025-01-02 19:25] VITALS: BP 153/73
[2025-01-03] VITALS (7 sets, daily range): BP systolic 140–157; BP diastolic 66–76
[2025-01-03 04:52] LABS: BASOPHILS ABSOLUTE AUTO 0.02 K/mm3 (0.00-0.23); BASOPHILS PERCENT AUTO 0 % (0-2); EOSINOPHILS ABSOLUTE AUTO 0.08 K/mm3 (0.00-0.68); EOSINOPHILS PERCENT AUTO 2 % (0-6); Hematocrit 33.2 % (33.0-51.0); Hemoglobin 10.5 g/dL (11.5-16.0); IMMATURE GRAN ABSOLUTE AUTO 0.03 K/mm3 (0.00-0.10); IMMATURE GRAN PERCENT AUTO 1 % (0-1); LYMPHOCYTES ABSOLUTE AUTO 1.25 K/mm3 (0.84-5.20); LYMPHOCYTES PERCENT AUTO 28 % (21-46); MONOCYTES ABSOLUTE AUTO 0.39 K/mm3 (0.16-1.47); MONOCYTES PERCENT AUTO 9 % (4-13); Mean Corpuscular HGB Conc 31.6 g/dL (31.5-36.5); Mean Corpuscular Volume 91 fL (80-100); NEUTROPHILS ABSOLUTE AUTO 2.78 K/mm3 (1.96-9.15); NEUTROPHILS PERCENT AUTO 61 % (41-73); NRBC ABSOLUTE 0.00 K/mm3 (0.00-0.02); NRBC Auto 0.0 /100 WBC (0.0-0.2); Platelet Count 164 K/mm3 (150-400); RDW Coefficient Variation 13.6 % (11.7-14.2); RDW Standard Deviation 45.0 fL (35.1-46.3)
--- NOTE | 2025-01-03 05:08 | NUR ---
SHIFT SUMMARY PATIENT A/O X3-4, INTERMITTENT CONFUSION BUT EASILY REDIRECTABLE. PATIENT REPORTING PAIN, MANAGED BY MEDICATION ON EMAR W/ GOOD RELIEF. PATIENT VOIDING WELL, PUREWICK IN PLACE, NINA COLORED URINE. PATIENT REMAINED BEDREST THIS SHIFT. BEDBATH GIVEN, ATTENDS AND LINENS CHANGES. ABX PER EMAR. NO ACUTE CHANGES THROUGHOUT SHIFT. WILL CONTINUE TO MONITOR AND REPORT TO ONCOMING RN.
[2025-01-03 05:37] LABS: Anion Gap 9.0 mmol/L (3-11); Blood Urea Nitrogen 11.0 mg/dL (8-24); CO2, Blood 32.0 mmol/L (21-32); Calcium, Blood 7.8 mg/dL (8.5-10.1); Chloride, Blood 104.0 mmol/L (98-108); Creatinine, Blood 0.43 mg/dL (0.40-1.00); Glucose, Blood 184.0 mg/dL (70-99); Potassium, Blood 3.5 mmol/L (3.5-5.5); Sodium, Blood 141.0 mmol/L (136-145)
[2025-01-03] MEDS ORDERED: BACTRIM DS TAB1 EAC6 PO (12:35)
--- NOTE | 2025-01-03 18:00 | NUR ---
SHIFT SUMMARY PATIENT ALERT AND INTERACTIVE BUT CONFUSED AT TIMES. HX OF CVA WITH L SIDED DEFICITS AND CONTRACTURES. PATIENT ABLE TO MAKE NEEDS KNOWN. PATIENT MEDICATED FOR PAIN PER MAR. PLAN TO TRANSFER BACK TO [facility] TOMORROW. TRANSPORTATION NOT AVAILABLE TODAY.
[2025-01-04 02:32] LABS: Vancomycin, Trough 28.6 ug/mL (5.0-10.0)
[2025-01-04 04:31] VITALS: BP 152/74
--- NOTE | 2025-01-04 04:36 | NUR ---
PT A&O X4, PT WITH LARRY, TURNED, VS WNL, O2 @ 2L/ NC THIS IS BL FOR HER. TELE NSR WITH BBB AND 1ST DEGREE. CBG WNL NO SSI ORDERED. PLAN TO D/C TO [facility] TODAY.
[2025-01-04 07:28] VITALS: BP 160/70
[2025-01-04 15:55] LABS: Vancomycin, Random 23.3 ug/mL
--- NOTE | 2025-01-04 16:29 | NUR ---
PATIENT LEFT VIA WC AND OXYGEN WITH TRANSPORT TO [facility]. REPORT GIVEN TO JOBY
== END 2025-01-04 15:23 | DRG 871 ==
LOC: ER 00:38 → ERHOLD 03:31 → MEDS 03:31 → ENPENDDIS 01-03 11:57 → MEDS 01-04 15:23
PROVIDERS: Emergency Medicine; Student in an Organized Health Care Education/Training Program; ADMIT Internal Medicine
DX: A41.9 Sepsis, unspecified organism (principal); G92.8 Other toxic encephalopathy; J18.9 Pneumonia, unspecified organism; J96.21 Acute and chronic respiratory failure with hypoxia; I50.32 Chronic diastolic (congestive) heart failure; N12 Tubulo-interstitial nephritis, not specified as acute or chronic; I69.354 Hemiplegia and hemiparesis following cerebral infarction affecting left non-dominant side; Z88.5 Allergy status to narcotic agent; Z88.8 Allergy status to other drugs, medicaments and biological substances; Z88.0 Allergy status to penicillin; Z88.2 Allergy status to sulfonamides; Z79.82 Long term (current) use of aspirin; Z79.891 Long term (current) use of opiate analgesic; Z79.899 Other long term (current) drug therapy; Z79.84 Long term (current) use of oral hypoglycemic drugs; J44.9 Chronic obstructive pulmonary disease, unspecified; I25.10 Atherosclerotic heart disease of native coronary artery without angina pectoris; I11.0 Hypertensive heart disease with heart failure; Z86.19 Personal history of other infectious and parasitic diseases; Z79.4 Long term (current) use of insulin; F32.A Depression, unspecified; Z95.5 Presence of coronary angioplasty implant and graft; Z90.89 Acquired absence of other organs; Z98.890 Other specified postprocedural states; F17.210 Nicotine dependence, cigarettes, uncomplicated; I45.10 Unspecified right bundle-branch block; R65.20 Severe sepsis without septic shock; E11.42 Type 2 diabetes mellitus with diabetic polyneuropathy; E78.5 Hyperlipidemia, unspecified; M16.0 Bilateral primary osteoarthritis of hip; R91.8 Other nonspecific abnormal finding of lung field
CPT/HCPCS: 36415; 70450; 71045; 71260; 74177; 80048; 80053; 80202; 81001; 82803; 82947; 83605; 83880; 84484; 85025; 87040; 87070; 87077; 87086; 87186; 87205; 87637; 92526; 92610; 93005; 93010; 93971; 94640; 94664; 94760; 94762; 96360-59; 99285-25; A6590; A9270; J0456; J0696; J1650; J2185; J2405; J3373; J7030; J7040; J7050; P9047; Q9967

== ENCOUNTER 2025-01-19 20:52 | Inpatient (IN) | payer MEDICARE, OTHER ==
[~2025-01-19] VITALS: Ht 157.5 cm; Wt 84.9 kg
[~2025-01-19 20:52] MED LIST changes: +BACTRIM DS TAB1 EAC6 PO
[2025-01-19 21:03] LABS: pH Blood Venous 7.42 (7.34-7.37)
[2025-01-19 21:35] LABS: Alanine Aminotransfer (ALT/SGP 26 U/L (12-78); Albumin, Blood 2.2 g/dL (3.4-5.0); Albumin/Globulin Ratio 0.4 (0.8-1.8); Anion Gap 8 mmol/L (3-11); Aspartate Aminotrans (AST/SGOT 51 U/L (12-37); Bilirubin, Total 0.6 mg/dL (0.1-1.0); Blood Urea Nitrogen 49 mg/dL (8-24); CO2, Blood 30 mmol/L (21-32); Calcium, Blood 8.2 mg/dL (8.5-10.1); Chloride, Blood 100 mmol/L (98-108); Creatinine, Blood 1.14 mg/dL (0.40-1.00); Globulin, Blood 5.6 g/dL (2.2-4.0); Glucose, Blood 154 mg/dL (70-99); Potassium, Blood 4.4 mmol/L (3.5-5.5); Sodium, Blood 134 mmol/L (136-145); Total Protein, Blood 7.8 g/dL (6.4-8.2)
[2025-01-19 21:40] LABS: Hematocrit 33.7 % (33.0-51.0); Hemoglobin 10.5 g/dL (11.5-16.0); Mean Corpuscular HGB Conc 31.2 g/dL (31.5-36.5); Mean Corpuscular Volume 91 fL (80-100); NRBC ABSOLUTE 0.00 K/mm3 (0.00-0.02); NRBC Auto 0.0 /100 WBC (0.0-0.2); Platelet Count 268 K/mm3 (150-400); RDW Coefficient Variation 14.8 % (11.7-14.2); RDW Standard Deviation 49.9 fL (35.1-46.3)
[2025-01-19 22:03] LABS: BAND PERCENT MAN 20 % (0-8); BASOPHILS ABSOLUTE MAN 0.00 K/mm3 (0.00-0.23); BASOPHILS PERCENT MAN 0 % (0-2); EOSINOPHILS ABSOLUTE MAN 0.00 K/mm3 (0.00-0.68); EOSINOPHILS PERCENT MAN 0 % (0-6); LYMPHOCYTES ABSOLUTE MAN 1.23 K/mm3 (0.84-5.20); LYMPHOCYTES PERCENT MAN 10 % (21-46); MONOCYTES ABSOLUTE MAN 0.12 K/mm3 (0.16-1.47); MONOCYTES PERCENT MAN 1 % (4-13); NEUTROPHILS ABSOLUTE MAN 10.94 K/mm3 (1.96-9.15); SEG NEUTROPHILS PERCENT MAN 69 % (41-73)
[2025-01-19] MEDS ORDERED: Vancomycin (Pharmacy Consult) IV PRN (23:45)
[2025-01-19] MEDS ORDERED: Cefepime HCl 2,000 MG in NS 100 ML IV ONE (23:45)
[2025-01-20] VITALS (77 sets, daily range): BP systolic 67–152; BP diastolic 36–109
[2025-01-20] MEDS ORDERED: FLU VACC TS2025(65UP)/MF59C/PF 45 MCG/0.5 ML SYRINGE IM SCH (00:45)
[2025-01-20] MEDS ORDERED: Vancomycin (Pharmacy Consult) IV SCH (00:50)
[2025-01-20] MEDS ORDERED: LevoFLOXacin 750 MG/D5W 150ML 150 ML IV SCH (01:45)
[2025-01-20 02:18] LABS: Influenza A, PCR NEGATIVE (NEGATIVE); Influenza B, PCR NEGATIVE (NEGATIVE); Resp Syncytial Virus, PCR NEGATIVE (NEGATIVE); SARS-Cov-2 (COVID-19) PCR, MMC NEGATIVE (NEGATIVE)
[2025-01-20] MEDS ORDERED: NS 250 ML IV ONE ×2 (03:05→04:15)
[2025-01-20 03:41] LABS: Hematocrit 26.6 % (33.0-51.0); Hemoglobin 8.3 g/dL (11.5-16.0); Mean Corpuscular HGB Conc 31.2 g/dL (31.5-36.5); Mean Corpuscular Volume 92 fL (80-100); NRBC ABSOLUTE 0.00 K/mm3 (0.00-0.02); NRBC Auto 0.0 /100 WBC (0.0-0.2); Platelet Count 214 K/mm3 (150-400); RDW Coefficient Variation 14.7 % (11.7-14.2); RDW Standard Deviation 49.9 fL (35.1-46.3)
[2025-01-20 03:59] LABS: Source, Urine Foley catheter
[2025-01-20 04:03] LABS: Magnesium, Blood 2.0 mg/dL (1.6-2.4)
[2025-01-20 04:04] LABS: Alanine Aminotransfer (ALT/SGP 21.0 U/L (12-78); Albumin, Blood 1.9 g/dL (3.4-5.0); Albumin/Globulin Ratio 0.4 (0.8-1.8); Anion Gap 7.0 mmol/L (3-11); Aspartate Aminotrans (AST/SGOT 46.0 U/L (12-37); Bilirubin, Total 0.5 mg/dL (0.1-1.0); Blood Urea Nitrogen 53.0 mg/dL (8-24); CO2, Blood 32.0 mmol/L (21-32); Calcium, Blood 7.4 mg/dL (8.5-10.1); Chloride, Blood 101.0 mmol/L (98-108); Creatinine, Blood 1.17 mg/dL (0.40-1.00); Globulin, Blood 4.3 g/dL (2.2-4.0); Glucose, Blood 161.0 mg/dL (70-99); Potassium, Blood 4.2 mmol/L (3.5-5.5); Sodium, Blood 136.0 mmol/L (136-145); Total Protein, Blood 6.2 g/dL (6.4-8.2)
[2025-01-20] MEDS ORDERED: Meropenem 2,000 MG in NS 250 ML IV SCH (04:11)
[2025-01-20 04:27] LABS: BAND PERCENT MAN 20 % (0-8); BASOPHILS ABSOLUTE MAN 0.00 K/mm3 (0.00-0.23); BASOPHILS PERCENT MAN 0 % (0-2); EOSINOPHILS ABSOLUTE MAN 0.00 K/mm3 (0.00-0.68); EOSINOPHILS PERCENT MAN 0 % (0-6); LYMPHOCYTES ABSOLUTE MAN 0.41 K/mm3 (0.84-5.20); LYMPHOCYTES PERCENT MAN 4 % (21-46); MONOCYTES ABSOLUTE MAN 0.31 K/mm3 (0.16-1.47); MONOCYTES PERCENT MAN 3 % (4-13); NEUTROPHILS ABSOLUTE MAN 9.69 K/mm3 (1.96-9.15); SEG NEUTROPHILS PERCENT MAN 73 % (41-73)
[2025-01-20 05:13] LABS: Bilirubin, Urine Neg (Neg); Glucose Qualitative, Urine Neg (Neg); Ketones, Urine Neg (Neg); Leukocyte Esterase, Urine 3+ (Neg); Protein, Urine 3+ (Neg); Specific Gravity, Urine 1.015 (1.003-1.022); Urobilinogen, Urine NORM (Normal)
[2025-01-20 05:22] LABS: Color, Urine Pale Yellow (P-Yellow)
[2025-01-20 05:25] LABS: White Blood Cells, Urine TNTC /hpf (0-5)
[2025-01-20 05:26] LABS: Yeast/Fungi Urine Mod /hpf
--- NOTE | 2025-01-20 06:29 | NUR ---
SHIFT SUMMARY PT HAS TOLERATED SHIFT SINCE ADMIT WELL. PT DID NOT PARTICIPATE WITH QUESTIONING UPON ADMIT, BUT DID SPEAK WHEN SHE WAS IN PAIN WITH TURNS. PTs BP HAS BEEN LOW, FLUID BOLUSs WERE ATTEMPTED BUT BP REMAINS LOW WITH MAP<65. PHYSICIAN ORDERED LEVOPHED AND PT HAS BEEN RESPONSIVE TO THAT TREATMENT. PTS SPO2 WAS ALSO LOW UPON ARRIVAL, PT WAS STARTED ON BIPAP AND HAS RESPONDED WELL TO TREATMENT. WILL CONTINUE TO MONITOR UNTIL REPORT PASSED TO DAY SHIFT TEAM.
[2025-01-20] MEDS ORDERED: Ondansetron HCl 2 MG / ML 2ML Vial ONE (07:15)
[2025-01-20] MEDS ORDERED: Metoclopramide HCl 5MG / ML 2ML Vial IV PRN (07:25)
[2025-01-20] MEDS ORDERED: Ondansetron HCl 2 MG / ML 2ML Vial IV PRN (07:30)
[2025-01-20] MEDS ORDERED: Ipratropium/Albuterol SulF 2.5-0.5MG/3 ML Amp INH SCH (08:25)
[2025-01-20] MEDS ORDERED: FentaNYL Citrate 50 MCG/ML 2 ML Injection ONE (08:28)
[2025-01-20] MEDS ORDERED: FentaNYL Citrate 50 MCG/ML 2 ML Injection IV ONE (08:30)
[2025-01-20 08:42] LABS: pH Blood Venous 7.38 (7.34-7.37)
--- NOTE | 2025-01-20 08:50 | NUR ---
INTUBATION NOTE.... 0806: 30MG IV ETOMIDATE. 0807: 70MG IV EDUARDA VS: O2 SATS: 53%, HR: 101, 97/75 0807: ET TUBE 7.5, 24 AT THE UPPER GUMS, BILATERAL BREATH SOUNDS +, + ETCO2. AC/VC: 20/480/5/100%. 0809: 111/50 (67) 0810: 92/498 (63) 0811: 500MLS BOLUS OF LR STARTED. 0814: LEVO STARTED AT 2MCG/MIN 0816: 85/93 (53) 100MCG NICKY GIVEN IV PUSH. 0819: LEVOPHED INCREASED TO 8MCG/MIN 86/41(55) 0830: PROPOFOL STARTED AT 5MCG/KG/MIN 0833: FENTANYL 50MCG IV PUSH GIVEN FOR BRONCH. 0839:RIJ CENTRAL LINE PLACED. 0844: PROPOFOL INCREASED TO 10MCG/KG/MIN 0846: LEVOPHED INCREASED TO 10MCG/MIN MAP 62 0847: BRONCH STARTED. 0848: ET TUBE PULLED OUT FROM 24 TO 21 UPPER GUMS.
[2025-01-20] MEDS ORDERED: Cefepime HCl 2,000 MG in NS 100 ML IV SCH (09:00)
[2025-01-20] MEDS ORDERED: Enoxaparin 40 MG/0.4 ML SYR SC SCH (09:00)
[2025-01-20] MEDS ORDERED: Lactobacil 2-S.Thermo-Bifido 1 1 Cap PO SCH (09:00)
--- NOTE | 2025-01-20 09:30 | NUR ---
AM NOTE/INTUBATION... ASSUMED CARE OF PT AT 0700, DURING BEDSIDE REPORT THE PT STARTED TO PULL AT THE BIPAP C/O OF NAUSEA. THE BIPAP WAS REMOVED AND THE PT STARTED TO DRY HEAVE. PT WAS PLACED FIRST ON HI FLOW NC WITH O2 SATS IN THE LOW 70'S, SHE WAS THEN PLACED ON AN OXY MASK AT 15L STILL WITH O2 SATS IN THE 70'S. RT WAS CALLED TO THE BEDSIDE AND SHE WAS PLACED ON A NRB AT 15L. PT'S L/S HAD VERY COARSE RHONCHI T/O AND DIM IN THE RIGHT AND LOWER LOBES. PT WAS IN SR IN THE 70'S-80'S, LEVOPHED WAS RUNNING ATR 4MCG/MIN TO KEEP MAPS>65, ONCE THE PT STARTED TO HAVE NAUSEA THE LEVOPHED WAS TITRATED OFF UNTIL PRIOR TO INTUBATION. THE PT WAS GIVEN ZOFRAN AND REGALEN WITH NO IMPROVMENT OF THE NAUSEA. THE PROVIDER WAS CALLED, A CONSULT FOR THE MOTTLER OPERATOR WAS PLACED. THE MOTTLER OPERATOR WAS NOTIFIED OF THE PT'S CONDITION. THE PROVIDER ARRIVED AT THE BEDSIDE AND DETERMINED THE PT NEEDED TO BE INTUBATED (SEE INTUBATION NOTE). ONCE THE PT WAS INTUBATED, A CENTRAL LINE WAS PLACED AND A BRONCH WAS PERFORMED AT THE BEDSIDE. OG TUBE WAS PLACED AT 65CM. ET TUBE IS 7.5 AND 24 AT THE UPPER GUMS, THE TUBE WAS PULLED OUT FROM 24 TO 21 PER PROVIDER AFTER PLACEMENT WAS CONFRIMED. THE PT'S FAMILY CAME TO THE BEDSIDE AND WAS UPDATED BY THIS RN AND THE PROVIDER ON THE PT'S CONDITION AND PLAN OF CARE. PT'S TEMP SULLIVAN IS PATENT AND DRAINING PINK/BLOOD TINGED, CLOUDY URINE TO GRAVITY. TRACE EDEMA NOTED TO THE PT'S BLE. A BLADDER SCAN WAS DONE PER PROVIDER ORDER TO ENSURE PROPER DRAINING OF THE SULLIVAN D/T INCREASED SEDIMENT AND SOME BLOOD CLOTS.
[2025-01-20] MEDS ORDERED: D5W-LR 1,000 ML IV SCH (14:00)
[2025-01-20] MEDS ORDERED: IPRAT-ALBUT 0.5-3 ML INH (14:52)
[2025-01-20] MEDS ORDERED: LEVO750 PO (14:54)
[2025-01-20] MEDS ORDERED: CEFTRIAXON1 GM/50 M1 IV (14:57)
[2025-01-20] MEDS ORDERED: FARXIGA5 MG PO (14:58)
[2025-01-20] MEDS ORDERED: FentaNYL Citrate 50 MCG/ML 2 ML Injection IV PRN (15:00)
[2025-01-20 16:31] LABS: Acinetobacter baumannii DNA Not Detected copy/mL (NOT DETECT)
[2025-01-20 16:32] LABS: Chlamydia pneumonia Not Detected (NOT DETECT); Enterobacter cloacae DNA Not Detected copy/mL (NOT DETECT); Escherichia coli DNA Not Detected copy/mL (NOT DETECT); Haemophilus influenzae DNA Not Detected copy/mL (NOT DETECT); Human Coronavirus RNA Not Detected (NOT DETECT); Human Metapneumovirus RNA Not Detected (NOT DETECT); Influenza virus A RNA Not Detected (NOT DETECT); Influenza virus B RNA Not Detected (NOT DETECT); Klebsiella aerogenes DNA Not Detected copy/mL (NOT DETECT); Klebsiella oxytoca DNA Not Detected copy/mL (NOT DETECT); Klebsiella pneumoniae DNA Not Detected copy/mL (NOT DETECT); Moraxella catarrhalis DNA Not Detected copy/mL (NOT DETECT); Proteus sp DNA Not Detected copy/mL (NOT DETECT); Pseudomonas aeruginosa DNA Not Detected copy/mL (NOT DETECT); Respiratory syncytial Vir RNA Not Detected (NOT DETECT); Rhinovirus+Enterovirus RNA Not Detected (NOT DETECT); Serratia marcescens DNA Not Detected copy/mL (NOT DETECT); Staphylococcus aureus DNA Not Detected copy/mL (NOT DETECT); Streptococcus agalactiae DNA Not Detected copy/mL (NOT DETECT); Streptococcus pneumoniae DNA Not Detected copy/mL (NOT DETECT); Streptococcus pyogenes DNA Not Detected copy/mL (NOT DETECT)
[2025-01-20] MEDS ORDERED: Insulin Human Lispro 100 Units/ML 3ML Syringe SC SCH (18:00)
--- NOTE | 2025-01-20 18:30 | NUR ---
SHIFT SUMMARY.... NO ACUTE NEGATIVE CHANGES SINCE PREVIOUS NOTES. THE PT CONTINUES TO BE ON LEVOPHED AT 14MCG/MIN TO KEEP MAPS>65. VENT SETTINGS ARE: AC/VC:18/480/5/80% WITH O2 SATS>90%. OG TUBE IS CLAMPED AT THIS TIME. TEMP SULLIVAN IS PATENT AND DRAINING DARK RED URINE WITH SEDIMENT AND SMALL CLOTS TO GRAVITY. TMAX THIS SHIFT WAS 101.5, PT WAS GIVEN TYLENOL WITH GOOD RESULTS. PROPOFOL IS RUNNING AT 30MCG/KG/MIN WITH A RASS OF -1 TO 0. PRN IV FENTANYL FOR PAIN. RIGHT IJ CENTRAL LINE IS STABLE. MEPILEX IN PLACE TO THE COCCYX AND HEEL PROTECTORS ARE IN PLACE. D5LR IS RUNNING AT 75MLS/HR. PT'S DAUGHTER AT THE BEDSIDE MOST OF THIS SHIFT, SHE WAS UPDATED ON THE PT'S CONDITION AND PLAN OF CARE.
[2025-01-20] MEDS ORDERED: Etomidate 2MG / ML 10ML Vial XX ONE (18:54)
[2025-01-20] MEDS ORDERED: Phenylephrine HCl 100 MCG/ML-NS 10MLSYR (1MG/10ML) IV ONE (18:54)
[2025-01-20] MEDS ORDERED: Propofol 10mg/ml 20 ml Vial (Procedural) IV ONE (18:54)
[2025-01-20] MEDS ORDERED: Rocuronium Bromide 10 MG/ML 5ML Injection IV ONE (18:54)
[2025-01-21] VITALS (92 sets, daily range): BP systolic 73–139; BP diastolic 42–97
[2025-01-21] MEDS ORDERED: Hydrogen Peroxide 1.5 % Solution MT SCH
[2025-01-21 03:44] LABS: BASOPHILS ABSOLUTE AUTO 0.07 K/mm3 (0.00-0.23); BASOPHILS PERCENT AUTO 0 % (0-2); EOSINOPHILS ABSOLUTE AUTO 0.01 K/mm3 (0.00-0.68); EOSINOPHILS PERCENT AUTO 0 % (0-6); Hematocrit 29.4 % (33.0-51.0); Hemoglobin 9.4 g/dL (11.5-16.0); IMMATURE GRAN ABSOLUTE AUTO 0.22 K/mm3 (0.00-0.10); IMMATURE GRAN PERCENT AUTO 1 % (0-1); LYMPHOCYTES ABSOLUTE AUTO 1.07 K/mm3 (0.84-5.20); LYMPHOCYTES PERCENT AUTO 5 % (21-46); MONOCYTES ABSOLUTE AUTO 0.71 K/mm3 (0.16-1.47); MONOCYTES PERCENT AUTO 3 % (4-13); Mean Corpuscular HGB Conc 32.0 g/dL (31.5-36.5); Mean Corpuscular Volume 91 fL (80-100); NEUTROPHILS ABSOLUTE AUTO 19.76 K/mm3 (1.96-9.15); NEUTROPHILS PERCENT AUTO 91 % (41-73); NRBC ABSOLUTE 0.00 K/mm3 (0.00-0.02); NRBC Auto 0.0 /100 WBC (0.0-0.2); Platelet Count 261 K/mm3 (150-400); RDW Coefficient Variation 14.8 % (11.7-14.2); RDW Standard Deviation 49.2 fL (35.1-46.3)
[2025-01-21 04:01] LABS: Alanine Aminotransfer (ALT/SGP 18.0 U/L (12-78); Albumin, Blood 1.6 g/dL (3.4-5.0); Albumin/Globulin Ratio 0.4 (0.8-1.8); Anion Gap 7.0 mmol/L (3-11); Aspartate Aminotrans (AST/SGOT 47.0 U/L (12-37); Bilirubin, Total 0.6 mg/dL (0.1-1.0); Blood Urea Nitrogen 48.0 mg/dL (8-24); CO2, Blood 28.0 mmol/L (21-32); Calcium, Blood 7.6 mg/dL (8.5-10.1); Chloride, Blood 106.0 mmol/L (98-108); Creatinine, Blood 1.07 mg/dL (0.40-1.00); Globulin, Blood 4.3 g/dL (2.2-4.0); Glucose, Blood 213.0 mg/dL (70-99); Potassium, Blood 3.3 mmol/L (3.5-5.5); Sodium, Blood 138.0 mmol/L (136-145); Total Protein, Blood 5.9 g/dL (6.4-8.2)
--- NOTE | 2025-01-21 05:42 | NUR ---
SHIFT SUMMARY PATIENT INTUBATED AND SEDATED BUT ABLE TO OPEN EYES WHEN NAME IS CALLED. PATIENT ABLE TO SHAKE HEAD YES AND NO TO QUESTIONS. PATIENT HAD A FEW EPISODES OF VENT BIGEMANY WITH NO SYMPTOMS DR. RODRIGUEZ AWARE AND NO NEW ORDERS. PATIENT FERIBLE DURING SHIFT UP TO 101.3, FAN AND ICE PACKS APPLIED AND TYLENOL PRN GIVEN (TEMP DOWN TO 99.0). PATIENT'S HR 90-100'S AND SBP 110-120'S. INTUBATED WITH ETT 7.5 @ 21CM @GUMS. VENT SETTING @ AC/VC 16/420//40%. PATIENT HAS SULLIVAN DRIANING TO GRAVITY. PATIENT HAS LEFT CENTRAL LINE WITH PROPOFOL INFUSING @ 30MCG, LEVOPHED @ 16MCG, AND D5W @ 75MLS. PATEINT HAS PERIPHERAL LEFT FORERM IV SALINE LOCKED. RIGHT WRIST IN SOFT RESTRAINT. PATIENT HAS LEFT SIDE DEFICIT. CALL LIGHT WITHIN REACH.
[2025-01-21] MEDS ORDERED: Cetylpyridinium Chloride 1 EA MISC MT SCH (08:00)
--- NOTE | 2025-01-21 08:00 | NUR ---
ASSUMPTION OF CARE RECIEVED REPORT FROM [facility] NURSE. PT INTUBATED AND SEDATED. PT HAS DIMINISHED AND COARSE LUNG SOUNDS T/O. PT DOES NOT TOLERATE REPOSITIONING AND 02 WILL DECREASE TO 78-82%. PT ON LEVO AND PROP DRIP. HR 100-110S, MAP >65. PT IN A SOFT RESTRAIN ON THE RIGHT ARM, PT'S LEFT SIDE IS CONTRACTURED D/T CVA. PT HAS BEEN FEBRILE, TYLENOL GIVEN PRN. SULLIVAN CATH IN PLACE AND DRAINING TO GRAVITY, URINE IS NINA WITH SEDIMENT. PT WILL OPEN EYES TO SOUND AND FOLLOWS COMMANDS.
[2025-01-21] MEDS ORDERED: Pantoprazole Sodium 40 MG Injection IV SCH (09:00)
[2025-01-21] MEDS ORDERED: Miconazole Nitrate 2% 85 GM PWD TOP PRN (14:40)
--- NOTE | 2025-01-21 17:50 | NUR ---
SHIFT SUMMARY PT IS INTUBATED AND SEDATED WITH PROP. PT RASS IS 0 TO +1, PROP HAS BEEN TITRATED UP TO 44MCG/KG/HR. PT WILL OPEN EYES TO VERBAL STIMULI AND WILL FOLLOW COMMANDS POSSIBLE WITH HER BASELINE. PT'S LEFT SIDE IS CONTRACTURED D/T A CVA. PT'S LUNG SOUNDS ARE DIMINISHED AND COARSE T/O. VENT SETTINGS ARE AC/VC, 18/480/10/50%. FIO2 WAS INCREASED FROM 40-50 D/T 02 SATS IN THE 80S. PT DOES NOT TOLERATE REPOSITIONING OR STIMULI, WILL DESAT TO 78-84%. PT HR IN THE 100-110S AND MAP >65 WITH LEVO DRIP AT 20. PT IS SENSITIVE TO LEVO TITRATIONS. PT HAS BEEN FEBRILE T/O SHIFT, FAN AND TYLENOL HAVE BEEN PLAN OF CARE. PT MEDICATED FOR PAIN 4 TIMES THIS SHIFT, PT IS ABLE TO NOTIFY NURSE THAT THEY ARE IN PAIN BY SQUEEZING MY HAND. SULLIVAN CATH IS IN PLACE AND DRAINING TO GRAVITY, URINE IS NINA TO BROWN WITH VERY THICK SEDIMENT AND ONLY 185MLS OUTPUT T/O SHIFT. SULLIVAN WAS FLUSHED TWICE THIS SHIFT TO ENSURE PATENCY, A TOTAL OF 100MLS. BLADDER SCAN WAS DONE PER ORDERS, SHOWED 44MLS IN THE BLADDER. DAUGHTER WAS PRESENT, AGREEABLE WITH PLAN OF CARE.
[2025-01-22] VITALS (81 sets, daily range): BP systolic 100–166; BP diastolic 43–126
[2025-01-22 01:58] LABS: Vancomycin, Trough 18.2 ug/mL (5.0-10.0)
[2025-01-22 03:36] LABS: Hematocrit 31.9 % (33.0-51.0); Hemoglobin 9.9 g/dL (11.5-16.0); Mean Corpuscular HGB Conc 31.0 g/dL (31.5-36.5); Mean Corpuscular Volume 91 fL (80-100); NRBC ABSOLUTE 0.00 K/mm3 (0.00-0.02); NRBC Auto 0.0 /100 WBC (0.0-0.2); Platelet Count 249 K/mm3 (150-400); RDW Coefficient Variation 15.0 % (11.7-14.2); RDW Standard Deviation 50.3 fL (35.1-46.3)
[2025-01-22 03:46] LABS: Anion Gap 8 mmol/L (3-11); Blood Urea Nitrogen 45 mg/dL (8-24); CO2, Blood 26 mmol/L (21-32); Calcium, Blood 7.3 mg/dL (8.5-10.1); Chloride, Blood 109 mmol/L (98-108); Creatinine, Blood 1.04 mg/dL (0.40-1.00); Glucose, Blood 129 mg/dL (70-99); Potassium, Blood 3.9 mmol/L (3.5-5.5); Sodium, Blood 139 mmol/L (136-145)
[2025-01-22 03:56] LABS: BAND PERCENT MAN 12 % (0-8); BASOPHILS ABSOLUTE MAN 0.00 K/mm3 (0.00-0.23); BASOPHILS PERCENT MAN 0 % (0-2); EOSINOPHILS ABSOLUTE MAN 0.00 K/mm3 (0.00-0.68); EOSINOPHILS PERCENT MAN 0 % (0-6); LYMPHOCYTES ABSOLUTE MAN 0.98 K/mm3 (0.84-5.20); LYMPHOCYTES PERCENT MAN 4 % (21-46); METAMYELOCYTE ABSOLUTE MAN 0.24 K/mm3 (0.00-0.00); METAMYELOCYTE PERCENT MAN 1 % (0-0); MONOCYTES ABSOLUTE MAN 0.49 K/mm3 (0.16-1.47); MONOCYTES PERCENT MAN 2 % (4-13); NEUTROPHILS ABSOLUTE MAN 22.85 K/mm3 (1.96-9.15); SEG NEUTROPHILS PERCENT MAN 81 % (41-73)
--- NOTE | 2025-01-22 05:46 | NUR ---
SHIFT SUMMARY PATIENT INTUBATED AND SEDATED. PATIENT RESPONSE TO VERBAL STIMULI. BEEN AFERIBLE THROUGH MOST OF SHIFT, NOW FERIBLE 101.1 GAVE PRN TYLENIL. HR IN THE 100-110'S AND SBP 110-120'S. INTUBATED WITH ETTUBE 7.5 @21 @GUMS, AV/VC 16/420/12/55%. PATIENT DESATS WHEN REPOSITIONING ESPEIALLY ON LEFT SIDE. PATIENT TAKES A WHILE TO RECOVER FROM DESATTING DR. RODRIGUEZ AWARE INCRESE PEEP. HAS SULLIVAN YDRAINING TO GRAVITY. HAS LEFT CENTRAL LINE WITH PROPOFOL INFUSING @ 44MCG, LEVOPHED @ 18MCG. PATIENT HAS LEFT SIDE DEFICITS RIGHT WRIST IN SOFT RESTRAINTS. CALL LIGHT WITHIN REACH.
--- NOTE | 2025-01-22 08:43 | NUR ---
AM NOTE... ASSUMED CARE OF PATIENT AT APPROX 0700. PATIENT INTUBATED AND SEDATED. PROPOFOL AND LEVOPHED RUNNING PER EMAR. SEE FLOWSHEET FOR TITRATIONS. VENT SETTINGS 16/420/12 55% FIO2. SPO2 >90%. HR SINUS/SINUS TACH IN THE 90S-110S. BP STABLE WITH MAPS >65. OGT PATENT AND CLAMPED. TEMP SULLIVAN PATENT AND DRAINING URINE TO GRAVITY. DAUGHTER AT BEDSIDE UPDATED ON PLAN OF CARE.
[2025-01-22] MEDS ORDERED: Vasopressin 20 UNITS in NS 100 ML IV SCH (10:10)
[2025-01-22] MEDS ORDERED: Docusate Sodium Liquid 100 MG UDC PT PRN (11:35)
[2025-01-22] MEDS ORDERED: Magnesium Hydroxide Conc 10 ML UDC PT PRN (11:35)
[2025-01-22] MEDS ORDERED: Fluconazole 200MG/Iso-Sod 100M 100 ML IV SCH (12:30)
[2025-01-22] MEDS ORDERED: Furosemide 10 MG / ML 2ML Vial IV SCH (16:00)
[2025-01-22] MEDS ORDERED: Morphine Sulfate 20 MG/1ML 1 ML Oral Syringe PT SCH (16:00)
--- NOTE | 2025-01-22 17:17 | NUR ---
SHIFT SUMMARY... PATIENT INTUBATED AND SEDATED. RASS -2, OPENS EYES TO VOICE. LEVOPHED, VASOPRESSIN, AND PROPOFOL RUNNING PER EMAR. SEE FLOWSHEET FOR TITRATIONS. VENT SETTINGS AC/VC 16/420/12 50%FIO2 WITH SPO2 >90%. HR SINUS IN THE 90S. OGT PATENT AND RUNNING VHP @ 25ML/HR WITH GOAL OF 55ML/HR. TEMP SULLIVAN REPLACED THIS SHIFT, PATENT AND DRAINING YELLOW URINE TO GRAVITY. PATIENT WAS RESTARTED ON HOME MEDICATION REGIMINE. LAUREN DRISCOLL AT BEDSIDE UPDATED ON PLAN OF CARE BY DR. BARBOZA.
[2025-01-23] VITALS (65 sets, daily range): BP systolic 98–145; BP diastolic 40–67
[2025-01-23 03:45] LABS: BASOPHILS ABSOLUTE AUTO 0.05 K/mm3 (0.00-0.23); BASOPHILS PERCENT AUTO 0 % (0-2); EOSINOPHILS ABSOLUTE AUTO 0.02 K/mm3 (0.00-0.68); EOSINOPHILS PERCENT AUTO 0 % (0-6); Hematocrit 29.7 % (33.0-51.0); Hemoglobin 9.3 g/dL (11.5-16.0); IMMATURE GRAN ABSOLUTE AUTO 0.24 K/mm3 (0.00-0.10); IMMATURE GRAN PERCENT AUTO 1 % (0-1); LYMPHOCYTES ABSOLUTE AUTO 1.15 K/mm3 (0.84-5.20); LYMPHOCYTES PERCENT AUTO 5 % (21-46); MONOCYTES ABSOLUTE AUTO 0.51 K/mm3 (0.16-1.47); MONOCYTES PERCENT AUTO 2 % (4-13); Mean Corpuscular HGB Conc 31.3 g/dL (31.5-36.5); Mean Corpuscular Volume 90 fL (80-100); NEUTROPHILS ABSOLUTE AUTO 19.26 K/mm3 (1.96-9.15); NEUTROPHILS PERCENT AUTO 91 % (41-73); NRBC ABSOLUTE 0.00 K/mm3 (0.00-0.02); NRBC Auto 0.0 /100 WBC (0.0-0.2); Platelet Count 202 K/mm3 (150-400); RDW Coefficient Variation 15.2 % (11.7-14.2); RDW Standard Deviation 49.9 fL (35.1-46.3)
[2025-01-23 04:04] LABS: Alanine Aminotransfer (ALT/SGP 15.0 U/L (12-78); Albumin, Blood 1.4 g/dL (3.4-5.0); Albumin/Globulin Ratio 0.4 (0.8-1.8); Anion Gap 8.0 mmol/L (3-11); Aspartate Aminotrans (AST/SGOT 46.0 U/L (12-37); Bilirubin, Direct 0.3 mg/dL (0.0-0.3); Bilirubin, Indirect 0.3 mg/dL (0.1-0.7); Bilirubin, Total 0.6 mg/dL (0.1-1.0); Blood Urea Nitrogen 46.0 mg/dL (8-24); CO2, Blood 24.0 mmol/L (21-32); Calcium, Blood 7.5 mg/dL (8.5-10.1); Chloride, Blood 111.0 mmol/L (98-108); Creatinine, Blood 1.08 mg/dL (0.40-1.00); Globulin, Blood 4.0 g/dL (2.2-4.0); Glucose, Blood 232.0 mg/dL (70-99); Magnesium, Blood 1.7 mg/dL (1.6-2.4); Phosphorus, Blood 4.0 mg/dL (2.5-4.9); Potassium, Blood 4.2 mmol/L (3.5-5.5); Sodium, Blood 139.0 mmol/L (136-145); Total Protein, Blood 5.4 g/dL (6.4-8.2)
--- NOTE | 2025-01-23 05:50 | NUR ---
SHIFT SUMMARY PATIENT INTUBATED AND SEDATED. WILL OPEN EYES WHEN NAME IS CALLED. PATIENT HAD BEDBATH AND ALL LINENS WERE CHANGED. PATIENT AFERIBLE DURING SHIFT. HR IN THE 80-90'S AND SBP 110-120'S WITH MAP'S IN THE 70'S. PATIENT INTUBATED WITH 7.5 TUBE 21CM @GUMS. VENT SETTINGS AC/VC 16/420/12/50%. PATIENT HAS OG TUBE @65CM. TUBE FEEDING RUNNING 45ML/HR WITH A 30 ML FLUSH Q4. PATIENT HAS FLOEY DRAING TO GRAVITY. PATIENT HAS LEFT SIDE CENTRAL LINE WITH VASOPRESSIN RUNNING @0.04, LEVOPHED QUAD STRENGTH RUNNING @12MCG AND PROPOFOL RUNNING @30MCG. BILATERAL LUNGS COARSE IN UPPER LOBES AND DIMINISHED IN LOWER LOBES. PATIENT RIGHT WRIST IN RESTRAINT. PATIENT HAS LEFT SIDE DEFICITS. CALL LIGHT WITHIN REACH.
--- NOTE | 2025-01-23 11:55 | NUR ---
Spiritual Care Visit. Pt. is intubated and not responsive. Daughter and granddaughter are present. Faciliotated a life review and listened with emapthy and interest. Pt. is a long time resident at [facility] and the family verbalized that she loves it there. Considered matters of cate and belief. Prayed over the Pt. Daughter displayed evidence of emotion and gratitude and verbalized gratitude for the spiritual care visit. Will remain available to Pt. and family.
[2025-01-23] MEDS ORDERED: FentaNYL Citrate 50 MCG/ML 2 ML Injection IV PRN (12:15)
--- NOTE | 2025-01-23 13:33 | NUR ---
ROUNDED ON PT. SHE IS CURRENTLY INTUBATED. FAMILY AT BEDSIDE, PROVIDED COPY OF MOST RECENT POLST. PATIENTS DAUGHTER, JIMMIE, EXPRESSED GREATFULLNESS FOR SHOWING HER THE UPDATED POLST. POLST REFLECTED DNR AND LIMITED INTERVENTIONS. THERAPUTIC CONVERSATION. JIMMIE IS CONCERNED THAT HER MOTHER WILL NOT TOLORATED BEING REPOSITIONED. SHE IS PREPAIRING HERSELF FOR THINGS MAKING A TURN FOR THE WORSE. THEY ARE PLANNING ON REPOSITIONING HER AT 1500. FAMILY IS GOING TO GO EAT LUNCH, COME BACK TO VISIT, AND WAIT IN THE WAITING ROOM WHEN THE REPOSITIONING OCCURS.
[2025-01-23] MEDS ORDERED: Rocuronium Bromide 10 MG/ML 5ML Injection IV ONE (15:05)
--- NOTE | 2025-01-23 16:09 | NUR ---
ROUNDED ON PT THIS AFTERNOON. THERAPUTIC CONVERSATION WITH FAMILY PATIENT WAS BEING REPOSITIONED.
--- NOTE | 2025-01-23 16:40 | NUR ---
SHIFT SUMMARY PT SEDATED ON VENT AT TIME OF BEDSIDE REPORT. PT ABLE TO AROUSE TO VERBAL STIMULI, UNABLE TO FOLLOW COMMANDS. LEFT SIDE EXTREMITIES STIFF/LIMITED RANGE OF MOTION DUE TO PREVIOUS CVA DEFICITS. PUPILS PERRL, SCLERA EDEMATOUS. INTUBATED ON VENT, ETT 21 @ GUMS, ACVC 16/420/12/50%. LUNG SOUNDS COARSE T/O OLIVEIRA. NSR ON MONITOR, W/ FREQUENT PVC'S, OCCASIONAL VENT BIGEMINY. EKG OBTAINED AND REVIEWED BY PROVIDER. CAP REFILL <3 SEC, LLE +2 EDEMA, ELEVATED ON PILLOWS. OGT IN PLACE 65 AT GUMS, INFUSING VHP AT GOAL OF 55ML/HR, BOWEL TONES ACTIVE AND ABD SOFT/NONTENDER TO PALPATION. TWO LOOSE BM'S TODAY. TEMP SULLIVAN IN PLACE AND DRAINING TO GRAVITY. SKIN PALE W/ SCATTERED ECCHYMOSIS, PRESSURE ULCER ON COCCYX, MEPILEX IN PLACE. 1540: PT PRONED PER JABARI'S INSTRUCTIONS, PT GOAL TO REMAIN PRONED FOR 16 HOURS. PRONING PROCEDURE COMPLETED W/ 5 STAFF MEMBERS, PT MAINTAINED VITAL SIGNS AND TOLERATED WELL. PER JABARI INSTRUCTION, PT TO REMAIN UNDER DEEP SEDATION FOR PRONE PERIOD AND TF TO BE STOPPED UNTIL SUPINATED. ACCESS: LIJ CVC QUAD LUMEN, LFA PIV GTTS: NOREPI 12MCG/MIN, VASO 0.04 UNITS/MIN, PROP 45MCG/KG/HR
--- NOTE | 2025-01-23 19:37 | NUR ---
PROVIDER AT BEDSIDE PT SPO2 WAS AT 84 WITH A GOOD PLEH, JABARI NOTIFIED AND CAME TO BEDSIDE. VENT SETTINGS ADJUSTED TO 20/420/12/60%. PER PROVIDER- OK WITH 88% SPO2 WHILE POSITIONED ON L SIDE, RT CAN TITRATE FIO2 NEEDED AND PEEP UP TO 16 IF NECESSARY. PT SATS AT 90% AT THIS TIME.
--- NOTE | 2025-01-23 23:13 | NUR ---
ASSUMED CARE PATIENT IS INTUBATED AND SEDATED ON PROPOFOL. VENT AC VC 20/420/12/60%, RR 20. PATIENT IS IN PRONE POSITION, 02 SATS SIGNIFICANTLY DECREASE WHEN PATIENTS RIGHT SIDE IS UP. SP02 96% WITH LEFT SIDE UP. HR SR 80s, BIGEMINY. LEVOPHED AND VASO INFUSING TO MAINTAIN MAP >65. OG CLAMPED WHILE PRONE. SULLIVAN PATENT AND DRAINING TO GRAVITY. SEE SHIFT ASSESSMENT FOR MORE INFORMATION.
[2025-01-24] VITALS (49 sets, daily range): BP systolic 96–144; BP diastolic 40–71
[2025-01-24 02:15] LABS: BASOPHILS ABSOLUTE AUTO 0.04 K/mm3 (0.00-0.23); BASOPHILS PERCENT AUTO 0 % (0-2); EOSINOPHILS ABSOLUTE AUTO 0.02 K/mm3 (0.00-0.68); EOSINOPHILS PERCENT AUTO 0 % (0-6); Hematocrit 31.7 % (33.0-51.0); Hemoglobin 10.1 g/dL (11.5-16.0); IMMATURE GRAN ABSOLUTE AUTO 0.31 K/mm3 (0.00-0.10); IMMATURE GRAN PERCENT AUTO 2 % (0-1); LYMPHOCYTES ABSOLUTE AUTO 0.82 K/mm3 (0.84-5.20); LYMPHOCYTES PERCENT AUTO 5 % (21-46); MONOCYTES ABSOLUTE AUTO 0.53 K/mm3 (0.16-1.47); MONOCYTES PERCENT AUTO 3 % (4-13); Mean Corpuscular HGB Conc 31.9 g/dL (31.5-36.5); Mean Corpuscular Volume 89 fL (80-100); NEUTROPHILS ABSOLUTE AUTO 14.52 K/mm3 (1.96-9.15); NEUTROPHILS PERCENT AUTO 90 % (41-73); NRBC ABSOLUTE 0.00 K/mm3 (0.00-0.02); NRBC Auto 0.0 /100 WBC (0.0-0.2); Platelet Count 174 K/mm3 (150-400); RDW Coefficient Variation 14.9 % (11.7-14.2); RDW Standard Deviation 49.1 fL (35.1-46.3)
[2025-01-24 03:27] LABS: Anion Gap 8.0 mmol/L (3-11); Blood Urea Nitrogen 46.0 mg/dL (8-24); CO2, Blood 25.0 mmol/L (21-32); Calcium, Blood 7.6 mg/dL (8.5-10.1); Chloride, Blood 111.0 mmol/L (98-108); Creatinine, Blood 0.94 mg/dL (0.40-1.00); Glucose, Blood 176.0 mg/dL (70-99); Magnesium, Blood 1.6 mg/dL (1.6-2.4); Phosphorus, Blood 4.3 mg/dL (2.5-4.9); Potassium, Blood 3.8 mmol/L (3.5-5.5); Sodium, Blood 140.0 mmol/L (136-145); Vancomycin, Trough 25.6 ug/mL (5.0-10.0)
[2025-01-24 05:27] LABS: Campylobacter Sp Not Detected (NOT DETECT); E. Coli O157 Not Detected (NOT DETECT); Enteroaggregative E. coli-EAEC Not Detected (NOT DETECT); Enteropathogenic E. coli-EPEC Not Detected (NOT DETECT); Enterotoxigenic E. coli-ETEC Not Detected (NOT DETECT); Salmonella Sp Not Detected (NOT DETECT); Shiga Toxin-prod E. coli-STEC Not Detected (NOT DETECT); Shigella/Enteroin E. coli-EIEC Not Detected (NOT DETECT); Vibrio Sp Not Detected (NOT DETECT)
--- NOTE | 2025-01-24 06:10 | NUR ---
SHIFT SUMMARY PATIENT REMAINS INTUBATED AND SEDATED ON PROPOFOL AND FENTANYL PRN. RASS GOAL -3 WHILE PRONE. SP02 92% ON VENT WHILE RIGHT SIDE IS UP, 02 SATS IMPROVE WHILE TURNED LEFT SIDE UP. HR SR WITH BIGEMINY IN THE 80s. LEVOPHED AND VASO INFUSING. OG CLAMPED WHILE PRONE. SULLIVAN PATENT AND DRAINING TO GRAVITY. REPOSITIONED Q2H. RECTAL TUBE PLACED, LIQUID BMs, GI PANEL NEGATIVE.
[2025-01-24] MEDS ORDERED: NS 250 ML IV PRN (07:35)
--- NOTE | 2025-01-24 13:34 | NUR ---
"Spiritual Care | Family Request Pt. is intubated and not responsive. Daughter and LUZMA are present and request spiritual care. Facilitated introductions and an update. Family verbalized that they will be choosing terminal extubation. Daughter displayed anxiety and grief. This welder boilermaker sought to palliatively normalize the Pt./family experience. Considered matters of cate and belief. Prayed over the Pt. and blessed the family. Family verbalized gratitude for the spiritual care visit. Will remanin available to the Pt., family and staff."
[2025-01-24] MEDS ORDERED: Morphine Sulfate 20 MG/1ML 1 ML Oral Syringe SL PRN (14:55)
[2025-01-24] MEDS ORDERED: Atropine Sulfate 1% Opth Soln 2ML BTL SL PRN (14:55)
[2025-01-24] MEDS ORDERED: Ondansetron HCl 2 MG / ML 2ML Vial IV PRN (14:55)
[2025-01-24] MEDS ORDERED: LORazepam 2 MG/ML 1ML Injection IV ONE (15:00)
[2025-01-24] MEDS ORDERED: FentaNYL Citrate 50 MCG/ML 2 ML Injection IV ONE (15:00)
--- NOTE | 2025-01-24 16:01 | NUR ---
FOLLOWED UP THIS MORNING WITH PATIENTS FAMILY AFTER DR. BARBOZA HAD ROUNDED. THEY HAD DISCUSSED PATIENTS POOR PROGNOSIS AND HAD DISCUSSED OPTION FOR VENT LIBIRATION. PATIENT APPEARS COMFORTABLE AT THIS TIME. THIS AFTERNOON THE REST OF FAMILY ARRIVED. SPIRITUAL CARE AT BEDSIDE, COMFORT ORDERS PLACED. ROUNDED ON PT THIS EVENING AND HER O2 SATS WERE DECREASED, HR LOW, SHE REMAINS COMFORTABLE.
--- NOTE | 2025-01-24 16:17 | NUR ---
"Spiritual Care | EOL - TOD 1601 Prior to extubation scripture is read and prayers are given for both the Pt. and family. Pt. was extubated approx. 1530. Daughter and LUZMA are at bedside. Considered matters of the Pts. cate and belief and how they have meaning during this time of transition. The Lord's Prayer is rectied prior to confirmation of TOD 1601. Family vewrbalized gratitude for the spiritual care support and pastoral care. The family left the hospital soon after the nurses confirmed demise. Family had previously chosen and told the staff that [facility] was their choice for a home."
--- NOTE | 2025-01-24 18:11 | NUR ---
Summary. Pt extubated to comfort care at 1527, family and drivers' cash clerk at bedside immediately following extubation. Pt TOD 1601, Dr. Rivera and Dr. Khan notified. No personal belongings brought with patient to hospital.
== END 2025-01-24 16:01 | DRG 870 ==
LOC: ER 20:52 → ICUE 01-20 00:43
PROVIDERS: Internal Medicine Critical Care Medicine; Student in an Organized Health Care Education/Training Program; ADMIT Student in an Organized Health Care Education/Training Program
PROC: 5A09357 Assistance with Respiratory Ventilation, Less than 24 Consecutive Hours, Continuous Positive Airway Pressure (ICD-10-PCS; principal; 2025-01-20)
PROC: 5A1955Z Respiratory Ventilation, Greater than 96 Consecutive Hours (ICD-10-PCS; 2025-01-20)
PROC: 0BH17EZ Insertion of Endotracheal Airway into Trachea, Via Natural or Artificial Opening (ICD-10-PCS; 2025-01-20)
PROC: 0T9B70Z Drainage of Bladder with Drainage Device, Via Natural or Artificial Opening (ICD-10-PCS; 2025-01-20)
PROC: 0B9J8ZX Drainage of Left Lower Lung Lobe, Via Natural or Artificial Opening Endoscopic, Diagnostic (ICD-10-PCS; 2025-01-20)
PROC: 3E033XZ Introduction of Vasopressor into Peripheral Vein, Percutaneous Approach (ICD-10-PCS; 2025-01-20)
PROC: 3E03329 Introduction of Other Anti-infective into Peripheral Vein, Percutaneous Approach (ICD-10-PCS; 2025-01-20)
PROC: 0DH67UZ Insertion of Feeding Device into Stomach, Via Natural or Artificial Opening (ICD-10-PCS; 2025-01-20)
PROC: 02HV33Z Insertion of Infusion Device into Superior Vena Cava, Percutaneous Approach (ICD-10-PCS; 2025-01-20)
PROC: 0B9C8ZX Drainage of Right Upper Lung Lobe, Via Natural or Artificial Opening Endoscopic, Diagnostic (ICD-10-PCS; 2025-01-20)
PROC: 0B9G8ZX Drainage of Left Upper Lung Lobe, Via Natural or Artificial Opening Endoscopic, Diagnostic (ICD-10-PCS; 2025-01-20)
PROC: 0B9D8ZX Drainage of Right Middle Lung Lobe, Via Natural or Artificial Opening Endoscopic, Diagnostic (ICD-10-PCS; 2025-01-20)
PROC: 0B9H8ZX Drainage of Lung Lingula, Via Natural or Artificial Opening Endoscopic, Diagnostic (ICD-10-PCS; 2025-01-20)
PROC: 0B9F8ZX Drainage of Right Lower Lung Lobe, Via Natural or Artificial Opening Endoscopic, Diagnostic (ICD-10-PCS; 2025-01-20)
PROC: 0B978ZZ Drainage of Left Main Bronchus, Via Natural or Artificial Opening Endoscopic (ICD-10-PCS; 2025-01-20)
PROC: 0B918ZZ Drainage of Trachea, Via Natural or Artificial Opening Endoscopic (ICD-10-PCS; 2025-01-20)
PROC: 0B938ZZ Drainage of Right Main Bronchus, Via Natural or Artificial Opening Endoscopic (ICD-10-PCS; 2025-01-20)
PROC: 3E0G76Z Introduction of Nutritional Substance into Upper GI, Via Natural or Artificial Opening (ICD-10-PCS; 2025-01-20)
DX: A41.9 Sepsis, unspecified organism (principal); G92.8 Other toxic encephalopathy; R65.21 Severe sepsis with septic shock; J80 Acute respiratory distress syndrome; J18.9 Pneumonia, unspecified organism; N17.9 Acute kidney failure, unspecified; J44.0 Chronic obstructive pulmonary disease with (acute) lower respiratory infection; I50.32 Chronic diastolic (congestive) heart failure; I69.954 Hemiplegia and hemiparesis following unspecified cerebrovascular disease affecting left non-dominant side; B37.41 Candidal cystitis and urethritis; N13.6 Pyonephrosis; I42.0 Dilated cardiomyopathy; J98.11 Atelectasis; Z66 Do not resuscitate; Z51.5 Encounter for palliative care; I11.0 Hypertensive heart disease with heart failure; I25.10 Atherosclerotic heart disease of native coronary artery without angina pectoris; R33.9 Retention of urine, unspecified; F32.A Depression, unspecified; M19.90 Unspecified osteoarthritis, unspecified site; E11.9 Type 2 diabetes mellitus without complications; F17.210 Nicotine dependence, cigarettes, uncomplicated; D64.9 Anemia, unspecified; Z74.01 Bed confinement status; W44.F9XA Other object of natural or organic material, entering into or through a natural orifice, initial encounter; Z88.0 Allergy status to penicillin; Z88.2 Allergy status to sulfonamides; Z88.5 Allergy status to narcotic agent; Z88.8 Allergy status to other drugs, medicaments and biological substances; Z86.14 Personal history of Methicillin resistant Staphylococcus aureus infection; Z86.79 Personal history of other diseases of the circulatory system; Z79.4 Long term (current) use of insulin; Z79.899 Other long term (current) drug therapy; Z95.5 Presence of coronary angioplasty implant and graft; Z90.89 Acquired absence of other organs; Z98.890 Other specified postprocedural states; Z78.1 Physical restraint status; Z99.81 Dependence on supplemental oxygen; Z79.84 Long term (current) use of oral hypoglycemic drugs
CPT/HCPCS: 0528U; 31500; 36415; 36556; 51703; 51798; 71045; 71250; 74177; 80048; 80053; 80076; 80202; 81001; 82330; 82803; 82947; 83605; 83690; 83735; 83880; 84100; 84145; 84484; 85025; 87040; 87070; 87086; 87106; 87186; 87205; 87507; 87637; 93005; 93010; 93306; 94002; 94003; 94640; 94660; 94664; 96374; 99285-25; A9270; C1751; J0456; J0612; J0692; J1450; J1650; J1938; J1956; J2060; J2185; J2248; J2371; J2405; J2470; J2704; J2765; J3010; J3373; J3480; J7050; J7120; J7121; P9612; Q9967